=== PATIENT | female | born 1950 | race Caucasian/White ===

== ENCOUNTER → 2020-01-25 10:43 | Outpatient (BNVA) | payer MEDICARE, SELFPAY | PROVIDERS: Visit Provider Orthopaedic Surgery | DX: M17.11 Unilateral primary osteoarthritis, right knee (principal) | CPT/HCPCS: 20610; 99212; J1040 ==

== ENCOUNTER 2020-02-21 11:04 | Outpatient (REF) | payer MEDICARE, SELFPAY ==
--- NOTE | 2020-02-21 | US_ITS ---
EXAMINATION: US RETROPERITONEAL LIMITED (RENAL ONLY) CLINICAL INFORMATION: Renal stones. COMPARISON: Renal ultrasound 09/11/2019. CT abdomen and pelvis 08/17/2019. TECHNIQUE: Real-time imaging of the kidneys. FINDINGS: RIGHT KIDNEY: 10.0 x 4.7 x 6.0 cm (SAG x AP x TRV). The kidney is normal in size, contour, and echogenicity. Renal cortical thickness is normal. No calculi or focal parenchymal lesions. No hydronephrosis. LEFT KIDNEY: 11.1 x 5.1 x 4.0 cm (SAG x AP x TRV). The kidney is normal in size, contour, and echogenicity. Renal cortical thickness is normal. No focal parenchymal lesions or hydronephrosis. There are at least 3 echogenic stones in midpole without caliectasis. They measure 0.4 x 0.4 x 0 0.4 cm, 0.3 x 0.3 x 0.2 cm and 0.2 x 0.2 x 0.4 cm. US/US renal BI IMPRESSION: Multiple nonobstructive echogenic stones midpole left kidney. On previous ultrasound 4 small 2 mm stones were visualized on 09/11/2019 exam.
== END 2020-02-21 11:05 | disposition home or self-care (01) ==
LOC: HO.HMGCX 11:04
PROVIDERS: PCP Internal Medicine; Visit Provider Urology
DX: N20.0 Calculus of kidney (principal)
CPT/HCPCS: 76775

== ENCOUNTER → 2020-02-29 14:51 | Outpatient (BNVA) | payer MEDICARE, SELFPAY | PROVIDERS: PCP Internal Medicine; Visit Provider Urology | DX: Z13.89 Encounter for screening for other disorder (principal) | CPT/HCPCS: Q3014 ==

== ENCOUNTER 2020-03-29 14:23 | Outpatient (REF) | payer MEDICARE, SELFPAY ==
--- NOTE | ~2020-03-29 | MM_ITS ---
EXAMINATION: MM SCREENING DIGITAL BREAST TOMOSYNTHESIS, BILATERAL CLINICAL INFORMATION: Screening. Asymptomatic. The lifetime risk of breast cancer based on the Tyrer-Cuzick Model is 4%. COMPARISON: Mammography: 02/26/2019, 03/02/2018, 01/04/2017 TECHNIQUE: Digital breast tomosynthesis is performed in both the craniocaudal and mediolateral oblique views along with computer-aided detection (CAD). Synthesized 2D images are generated from the tomosynthesis. FINDINGS: The breasts are almost entirely fatty (ACR BI-RADS breast composition Category a). There are no significant masses, abnormal calcifications, or other abnormalities. There is a dermal lesion again seen posterior 6:30 o'clock left breast. Background stromal densities are similar to prior exams. MM/MM tomosynthesis screening BI IMPRESSION: No mammographic evidence of malignancy. ASSESSMENT: BI-RADS 2: Benign RECOMMENDATION: Routine annual mammography screening. This patient's information was entered into a reminder system with a target due date for their next mammogram.
== END 2020-03-29 14:24 | disposition home or self-care (01) ==
LOC: HO.MAMMO 14:23
PROVIDERS: Visit Provider Internal Medicine
DX: Z12.31 Encounter for screening mammogram for malignant neoplasm of breast (principal)
CPT/HCPCS: 77063; 77067

== ENCOUNTER → 2020-08-13 13:17 | Outpatient (BNVA) | payer MEDICARE, SELFPAY | PROVIDERS: PCP Internal Medicine; Visit Provider Orthopaedic Surgery | DX: M17.11 Unilateral primary osteoarthritis, right knee (principal) | CPT/HCPCS: 20610; 99212; J1040 ==

== ENCOUNTER 2020-09-02 15:55 | Outpatient (REF) | payer MEDICARE, SELFPAY ==
--- NOTE | ~2020-09-02 | US_ITS ---
EXAMINATION: US RETROPERITONEAL LIMITED (RENAL ONLY) CLINICAL INFORMATION: Calculus of kidney. COMPARISON: Ultrasound renal 02/21/2020 TECHNIQUE: Real-time imaging of the kidneys. FINDINGS: RIGHT KIDNEY: 9.6 x 4.6 x 4.8 cm (SAG x AP x TRV). The kidney is normal in size, contour, and echogenicity. Renal cortical thickness is normal. No calculi or focal parenchymal lesions. No hydronephrosis. LEFT KIDNEY: 11.0 x 4.7 x 4.1 cm (SAG x AP x TRV). The kidney is normal in size, contour, and echogenicity. Renal cortical thickness is normal. There is a small left mid and lower pole renal stones, largest measuring 3 mm. No focal parenchymal lesions or hydronephrosis. US/US renal BI IMPRESSION: Small left renal stones.
== END 2020-09-02 15:56 | disposition home or self-care (01) ==
LOC: HO.US 15:55
PROVIDERS: PCP Internal Medicine; Visit Provider Urology
DX: N20.0 Calculus of kidney (principal)
CPT/HCPCS: 76775

== ENCOUNTER → 2020-11-14 14:53 | Outpatient (BNVA) | payer MEDICARE, SELFPAY | PROVIDERS: PCP Internal Medicine | DX: N20.0 Calculus of kidney (principal) | CPT/HCPCS: 99212 ==

== ENCOUNTER 2021-03-31 10:20 | Outpatient (REF) | payer MEDICARE, SELFPAY ==
--- NOTE | ~2021-03-31 | MM_ITS ---
EXAMINATION: MM SCREENING DIGITAL BREAST TOMOSYNTHESIS, BILATERAL CLINICAL INFORMATION: Screening. Asymptomatic. The lifetime risk of breast cancer based on the Tyrer-Cuzick Model is 3%. COMPARISON: Mammography: 03/29/2020, 02/26/2019, 02/20/2018 TECHNIQUE: Digital breast tomosynthesis is performed in both the craniocaudal and mediolateral oblique views along with computer-aided detection (CAD). Synthesized 2D images are generated from the tomosynthesis. FINDINGS: There are scattered areas of fibroglandular density (ACR BI-RADS breast composition Category b). Breast tissue composition borders on predominantly fatty. Background fibroglandular and stromal densities are stable. There is no interval mass or architectural abnormality or abnormal calcifications. Again, there is a dermal lesion overlying the posterior 7:00 left breast and a dermal lesion overlying the upper anterior left axilla. Low right axillary tail node is stable. There are no significant changes. MM/MM tomosynthesis screening BI IMPRESSION: No mammographic evidence of malignancy. ASSESSMENT: BI-RADS 2: Benign RECOMMENDATION: Routine annual mammography screening. This patient's information was entered into a reminder system with a target due date for their next mammogram.
== END 2021-03-31 10:21 | disposition home or self-care (01) ==
LOC: HO.MAMMO 10:20
PROVIDERS: PCP Physician Assistant Medical; Visit Provider Internal Medicine
DX: Z12.31 Encounter for screening mammogram for malignant neoplasm of breast (principal)
CPT/HCPCS: 77063; 77067

== ENCOUNTER 2021-05-14 08:01 | Outpatient (REF) | payer MEDICARE, SELFPAY ==
--- NOTE | ~2021-05-14 | XR_ITS ---
EXAMINATION: XR KNEE, RIGHT XR KNEE STANDING, BILATERAL CLINICAL INFORMATION: Pain in knee. COMPARISON: None TECHNIQUE: AP upright views of both knees. Patella and lateral view of the right knee. FINDINGS: RIGHT KNEE: There is narrowing of the medial compartment with marginal osteophytes and subchondral cysts indicative of plag-sk-gpqxeogu osteoarthritis. Lateral compartment: Small marginal osteophytes indicative of mild osteoarthritis. Mild marginal osteophytes about the patellofemoral compartment without joint space narrowing indicative of mild osteoarthritis. Surrounding soft tissues: Normal. LIMITED AP UPRIGHT LEFT KNEE: Marginal osteophytes with minimal joint space narrowing of the medial compartment indicative of mild osteoarthritis. Lateral compartment: Unremarkable. Surrounding bone and soft tissues: Unremarkable. XR/XR knee standing BI IMPRESSION: RIGHT KNEE: Osteoarthritis, unchanged. LEFT KNEE LIMITED: Osteoarthritis.
--- NOTE | ~2021-05-14 | XR_ITS ---
EXAMINATION: XR KNEE, RIGHT XR KNEE STANDING, BILATERAL CLINICAL INFORMATION: Pain in knee. COMPARISON: None TECHNIQUE: AP upright views of both knees. Patella and lateral view of the right knee. FINDINGS: RIGHT KNEE: There is narrowing of the medial compartment with marginal osteophytes and subchondral cysts indicative of agwr-bo-ipvhnaba osteoarthritis. Lateral compartment: Small marginal osteophytes indicative of mild osteoarthritis. Mild marginal osteophytes about the patellofemoral compartment without joint space narrowing indicative of mild osteoarthritis. Surrounding soft tissues: Normal. LIMITED AP UPRIGHT LEFT KNEE: Marginal osteophytes with minimal joint space narrowing of the medial compartment indicative of mild osteoarthritis. Lateral compartment: Unremarkable. Surrounding bone and soft tissues: Unremarkable. XR/XR knee RT 2V IMPRESSION: RIGHT KNEE: Osteoarthritis, unchanged. LEFT KNEE LIMITED: Osteoarthritis.
== END 2021-05-14 08:02 | disposition home or self-care (01) ==
LOC: HO.HOSX 08:01
PROVIDERS: Visit Provider Physician Assistant
DX: M17.11 Unilateral primary osteoarthritis, right knee (principal)
CPT/HCPCS: 20610; 73560; 73565; 99212; J1040

== ENCOUNTER 2021-10-09 08:42 | Outpatient (REF) | payer MEDICARE, SELFPAY ==
--- NOTE | ~2021-10-09 | US_ITS ---
EXAMINATION: US RETROPERITONEAL LIMITED (RENAL ONLY) CLINICAL INFORMATION: Calculus of kidney. COMPARISON: Renal ultrasound 09/02/2020 and 02/21/2020. CT abdomen and pelvis 08/17/2019. TECHNIQUE: Real-time imaging of the kidneys. FINDINGS: RIGHT KIDNEY: 10.6 x 3.9 x 6.1 cm (SAG x AP x TRV). The kidney is normal in size, contour, and echogenicity. Renal cortical thickness is normal. No calculi or focal parenchymal lesions. No hydronephrosis. LEFT KIDNEY: 11.2 x 4.6 x 5.4 cm (SAG x AP x TRV). The kidney is normal in size, contour, and echogenicity. Renal cortical thickness is normal. There are 3 small stones in the mid and lower pole measuring 3 mm. No focal parenchymal lesions or hydronephrosis. US/US renal BI IMPRESSION: Small left renal stones.
== END 2021-10-09 08:43 | disposition home or self-care (01) ==
LOC: HO.HMGCX 08:42
DX: N20.0 Calculus of kidney (principal)
CPT/HCPCS: 76775

== ENCOUNTER → 2021-10-12 13:38 | Outpatient (BNVA) | payer MEDICARE, SELFPAY | PROVIDERS: PCP Internal Medicine; Visit Provider Physician Assistant | DX: M17.11 Unilateral primary osteoarthritis, right knee (principal) | CPT/HCPCS: 20610; 99212; J1040 ==

== ENCOUNTER → 2021-11-18 14:45 | Outpatient (BNVA) | payer MEDICARE, SELFPAY | PROVIDERS: PCP Internal Medicine; Visit Provider Urology | DX: N20.0 Calculus of kidney (principal) | CPT/HCPCS: 99212 ==

== ENCOUNTER → 2022-01-25 11:14 | Outpatient (BNVA) | payer MEDICARE, SELFPAY | PROVIDERS: PCP Internal Medicine; Visit Provider Urology | DX: N20.0 Calculus of kidney (principal); R82.992 Hyperoxaluria | CPT/HCPCS: Q3014 ==

== ENCOUNTER 2022-04-06 10:21 | Outpatient (REF) | payer MEDICARE, SELFPAY ==
--- NOTE | ~2022-04-06 | MM_ITS ---
EXAMINATION: MM SCREENING DIGITAL BREAST TOMOSYNTHESIS, BILATERAL CLINICAL INFORMATION: Screening. Asymptomatic. The lifetime risk of breast cancer based on the Tyrer-Cuzick Model is 3.3%. COMPARISON: Mammography: March 31, 2021 and studies dating back to December 20, 2015 TECHNIQUE: Digital breast tomosynthesis is performed in both the craniocaudal and mediolateral oblique views along with computer-aided detection (CAD). Synthesized 2D images are generated from the tomosynthesis. FINDINGS: The breasts are almost entirely fatty (ACR BI-RADS breast composition Category a). There are no significant masses, abnormal calcifications, or other abnormalities. MM/MM tomosynthesis screening BI IMPRESSION: No significant changes ASSESSMENT: BI-RADS 1: Negative RECOMMENDATION: Routine annual mammography screening. This patient's information was entered into a reminder system with a target due date for their next mammogram.
== END 2022-04-06 10:22 | disposition home or self-care (01) ==
LOC: HO.MAMMO 10:21
PROVIDERS: PCP Internal Medicine; Visit Provider Internal Medicine
DX: Z12.31 Encounter for screening mammogram for malignant neoplasm of breast (principal)
CPT/HCPCS: 77063; 77067

== ENCOUNTER 2022-05-13 14:35 | Outpatient (REF) | payer MEDICARE, SELFPAY ==
--- NOTE | ~2022-05-13 | XR_ITS ---
EXAMINATION: XR KNEES, STANDING AP BILATERAL XR KNEE, RIGHT CLINICAL INFORMATION: Knee pain COMPARISON: Standing AP knees and right knee 05/14/2021. TECHNIQUE: Bilateral standing AP view of the knees is performed. The right knee is also imaged in lateral and axial patella views. FINDINGS: Right: There is osteoarthritis greatest medial knee joint compartment with marked medial joint narrowing, small subchondral cysts medial femoral condyle, and marginal osteophytes. There is secondary rightward genu varus similar to prior exam. No erosive change or visible chondrocalcinosis. The axial view patella shows no lateralization or definite tilting. There is small suprapatellar effusion with mild thickening of the bursa. The Hoffa's fat. Is unremarkable. Left: There is narrowing medial knee joint compartment of lesser severity than that on the right with borderline secondary genu varus. No erosive change or visible chondrocalcinosis. XR/XR knee standing BI IMPRESSION: Right: Osteoarthritis greatest medial knee joint compartment with secondary rightward genu varus. Small suprapatellar effusion with mild thickening bursa. Findings similar to prior imaging 2021. Left: Narrowing medial knee joint compartment of lesser severity with borderline secondary genu varus. Findings similar to prior imaging 2021.
--- NOTE | ~2022-05-13 | XR_ITS ---
EXAMINATION: XR KNEES, STANDING AP BILATERAL XR KNEE, RIGHT CLINICAL INFORMATION: Knee pain COMPARISON: Standing AP knees and right knee 05/14/2021. TECHNIQUE: Bilateral standing AP view of the knees is performed. The right knee is also imaged in lateral and axial patella views. FINDINGS: Right: There is osteoarthritis greatest medial knee joint compartment with marked medial joint narrowing, small subchondral cysts medial femoral condyle, and marginal osteophytes. There is secondary rightward genu varus similar to prior exam. No erosive change or visible chondrocalcinosis. The axial view patella shows no lateralization or definite tilting. There is small suprapatellar effusion with mild thickening of the bursa. The Hoffa's fat. Is unremarkable. Left: There is narrowing medial knee joint compartment of lesser severity than that on the right with borderline secondary genu varus. No erosive change or visible chondrocalcinosis. XR/XR knee RT 2V IMPRESSION: Right: Osteoarthritis greatest medial knee joint compartment with secondary rightward genu varus. Small suprapatellar effusion with mild thickening bursa. Findings similar to prior imaging 2021. Left: Narrowing medial knee joint compartment of lesser severity with borderline secondary genu varus. Findings similar to prior imaging 2021.
== END 2022-05-13 14:36 | disposition home or self-care (01) ==
LOC: HO.HOSX 14:35
PROVIDERS: Visit Provider Physician Assistant
DX: M17.11 Unilateral primary osteoarthritis, right knee (principal)
CPT/HCPCS: 20610; 73560; 73565; 99212; J1040

== ENCOUNTER → 2022-07-26 13:21 | Outpatient (BNVA) | payer MEDICARE, SELFPAY | PROVIDERS: PCP Internal Medicine; Visit Provider Urology | DX: N20.0 Calculus of kidney (principal); R82.992 Hyperoxaluria | CPT/HCPCS: 99212 ==

== ENCOUNTER 2022-09-28 08:44 | Outpatient (REF) | payer MEDICARE, SELFPAY ==
--- NOTE | ~2022-09-28 | XR_ITS ---
EXAMINATION: XR SHOULDER, LEFT CLINICAL INFORMATION: Pain COMPARISON: None available. TECHNIQUE: Three views of the left shoulder. FINDINGS: Visualized portion of proximal left humerus demonstrate no fracture. Humeral head demonstrates good articulation the glenoid fossa. The left acromioclavicular joint is normal in appearance. Visualized left-sided ribs and lung parenchyma are unremarkable. XR/XR shoulder LT min 2V IMPRESSION: Unremarkable radiographs of the left shoulder.
== END 2022-09-28 08:45 | disposition home or self-care (01) ==
LOC: HO.HOSX 08:44
PROVIDERS: Visit Provider Physician Assistant
DX: M75.102 Unspecified rotator cuff tear or rupture of left shoulder, not specified as traumatic (principal)
CPT/HCPCS: 20610; 73030; 99212; J1040

== ENCOUNTER 2022-09-28 14:01 | Outpatient (AMB) | payer MEDICARE, SELFPAY ==
--- NOTE | 2022-09-28 14:13 | MHC.OFFVIS ---
Intake Vital Signs 09/28/22 14:18 Height 5 ft 7 in Weight 220 lb BMI 34.5 Intake Visit Reasons: Newprob-Left shoulder pain Intake Note: Kendal is a 71 year old female who presents today for a evaluation for her left shoulder pain. Patient reports off and on for a least 2-3 months. She states that her pain is more on the anterior aspect of the shoulder. Pain is worse when sleeping on her left side. Allergies No Known Allergies Allergy (Verified 09/28/22 14:17) HPI Newprob-Left shoulder pain HPI Details 72-year-old female who presents in the office today for an evaluation of left shoulder pain. The patient reports intermittent pain for the last 2-3 months, since 06/2022. She claims her pain is located more on the anterior aspect of the shoulder. She states her pain increases when she sleeps on her left side. [facility] Medical History Primary osteoarthritis of right knee Renal stone Surgical History History of hysterectomy Social History Current occupational status: employed Current occupation: [employer] Review of Systems Const All systems reviewed & are unremarkable except as noted in HPI and below Physical Exam Vital Signs: BMI result Body Mass Index 34.5 Const General: cooperative, healthy appearing and no acute distress Resp Effort & Inspection: normal respiratory effort and able to speak in complete sentences Cardio Rate: regular rate Peripheral pulses: Peripheral pulses 2+ throughout GI Palpation (GI): Soft to palpation Skin Lesions: no lesions Rashes: no rashes Extrem Other: Left shoulder: Normal to inspection. No ecchymosis, erythema, or edema. Full shoulder ROM in all planes. Negative cross-body reach. Negative empty can. Negative drop arm. NVI. Office Procedures Joint Injection/Drain Joint Injection/Drain Primary Site: right shoulder Prep: site was prepped using aseptic technique, ethochloride spray was applied and injection warnings given Injected: 80 mg of, DepoMedrol, with 8 mL of (2% plain lido ) and in the joint Approach Used: anterolateral Procedure: The patient tolerated the procedure well, but had some pain with the injection and there was some relief with the local anesthesia Coding - Large joint Procedure code (CPT) selection complete Results Reviewed Results Reviewed: 09/28/22 14:25 Lidocaine HCl 2 % MPF [Xylocaine 2 % MPF] 5 ml .ROUTE .STK-MED ONE methylPREDNISolone acetate [DEPO-MedroL] 80 mg .ROUTE .STK-MED ONE Assessment & Plan Assessment & Plan (1) Painful arc syndrome of left shoulder: Code(s): M75.102 - Unspecified rotator cuff tear or rupture of left shoulder, not specified as traumatic Plan Ms. Garcia is a 72-year-old female who presents in the office today for an evaluation of left shoulder pain. The patient reports intermittent pain for the last 2-3 months, since 06/2022. She claims her pain is located more on the anterior aspect of the shoulder. She states her pain increases when she sleeps on her left side. The patient was offered a cortisone injection in the left shoulder with 80 mg of DepoMedrol. The patient was explained the risk, benefits, and alternatives to receiving this injection. After receiving consent for the injection, the patient had the procedure done while in office today. The patient tolerated the procedure well with no complications. Follow up will be PRN, or sooner if needed. X-rays of the left shoulder which were obtained while in the office today and were reviewed by me, Ambreen Benz PA-C, revealed no evidence of acute fracture or dislocation. Orders: Orders XR shoulder LT min 2V Today M25.519 - Pain in unspecified shoulder Patient Instructions: Scribed for Ambreen Benz PA-C by Regi Sequeira lpn or medical assistant, on 09/28/2022 at 2:04 pm, EST. Coding Level of Care Code Est Pt Level 3 (60672) Diagnoses Painful arc syndrome of left shoulder M75.102 CPT Codes Coding - Large joint: 62384 - Large joint ([id number])
[2022-09-28 14:18] VITALS: BMI 34.5
== END 2022-09-28 14:45 | disposition home or self-care (01) ==
PROVIDERS: PCP Internal Medicine; Visit Provider Physician Assistant
DX: M75.102 Unspecified rotator cuff tear or rupture of left shoulder, not specified as traumatic (principal)
CPT/HCPCS: 20610; 99213

== ENCOUNTER 2022-10-27 15:32 | Outpatient (AMB) | payer MEDICARE, SELFPAY ==
--- NOTE | 2022-10-27 15:33 | A.OFFVIS_ITS ---
Intake Intake Visit Reasons: 6m follow up/Litholink Intake Note: Patient presents today for a follow-up on Litholink Results: Meds- None Allergies to Antibiotic- No Known Allergies Blood Thinner- None Mask Designer Required: No Accompanied by: Self / Same As Patient Allergies No Known Allergies Allergy (Verified 10/27/22 15:33) HPI HPI Comments History of Present Illness Details Kendal is a 72-year-old female who presents today to the office for a follow-up. 10/27/2022? She is followed today for repeat litholink results. She was last seen by me on 07/26/2022 for litholink results. The patient was advised to continue Vitamin B 6 100mg daily, and consume adequate water intake and low sodium diet during that time. Repeat 24-hour urine collection test was ordered. She states she has been taking OTC vitamin B6 100 mg daily. I reviewed the 24-hour urine culture results from 07/26/2022 revealed Total urine volume 1.83L, urine Calcium 212 mg slightly up from the prior collection, urine Oxalate was significantly improved to 33 mg down from 59, urine Sodium 292 mg and urine Citrate 739. Review of charts: Last visit: 07/26/2022? Telehealth fu--I have reviewed 24 hr urine collection, urine vol - 1.87 L, urine oxalate 59- elev, urine Na >200- elev., urine Ca <200 wnL? 15 minutes in face to face discussion greater than 50% in discussion regarding diagnosis and treatment options. Evaluation today-- blood:10 Alen/uL,? leukocytes:? 500 Celina/uL. I reviewed the 24 hr urine abnormalities including hyperoxaluria 10/27/2022: Plan: Monitor kidney stones. CAT scan of the abdomen/pelvis stone protocol. Continue OTC vitamin B6 100 mg daily. Encouraged the patient to reduce sodium in diet. Follow-up Tele-health in 04/2022 to discuss the CAT results. [facility] Medical History Primary osteoarthritis of right knee Renal stone Surgical History History of hysterectomy Social History Current occupational status: employed Current occupation: [employer] Review of Systems Const All systems reviewed & are unremarkable except as noted in HPI and below Reports no additional complaints Eyes Reports no additional complaints ENT Reports no additional complaints Card Denies dyspnea Resp Denies cough and Denies dyspnea GI Reports no additional complaints Reports no additional complaints Musc Reports no additional complaints Skin/Breast Denies rash and Denies unusual bruising Neuro Reports no additional complaints Psych Reports no additional complaints Endo Reports no additional complaints Charles/Lymph Reports no additional complaints Aller/Immun Reports no additional complaints Assessment & Plan Assessment & Plan (1) Kidney stone on left side: Code(s): N20.0 - Calculus of kidney (2) Hyperoxaluria: Code(s): R82.992 - Hyperoxaluria Plan Monitor kidney stones. CAT scan of the abdomen/pelvis stone protocol. Continue OTC vitamin B6 100 mg daily. Encouraged the patient to reduce sodium in diet. Follow-up Tele-health in 04/2022 to discuss the CAT results. Patient Instructions: The patient had an opportunity to ask questions regarding treatment plan. All questions were answered. Imaging, Laboratory studies and physical exam results were discussed and reviewed in detail. No major barriers to understanding were identified. The patient expressed understanding and agreement with the above treatment plan.? ? ? The patient is aware they should contact our office by phone for worsening of their current condition or the appearance of new symptoms. Compliance is encouraged with any medications and followup testing that is ordered.? ? ? It is a privilege to be allowed the opportunity to participate in the urologic care of your patient. If you have any questions or concerns regarding treatment for the above conditions please do not hesitate to contact me. The office telephone contact is [phone].? ? ? This note is constructed in part using voice recognition software. While every effort has been made to ensure accuracy psych social worker errors may have been included.? ? ? Yours sincerely,? ? ? Sabiha Swartz MD? Coding Level of Care Code Est Pt Level 3 (56182) Diagnoses Kidney stone on left side N20.0 Hyperoxaluria R82.997
== END 2022-10-27 15:57 | disposition home or self-care (01) ==
PROVIDERS: PCP Internal Medicine; Visit Provider Urology
DX: N20.0 Calculus of kidney (principal); R82.992 Hyperoxaluria
CPT/HCPCS: 99213

== ENCOUNTER → 2022-10-27 15:32 | Outpatient (BNVA) | payer MEDICARE, SELFPAY | PROVIDERS: PCP Internal Medicine; Visit Provider Urology | DX: N20.0 Calculus of kidney (principal); R82.992 Hyperoxaluria | CPT/HCPCS: 99212 ==

== ENCOUNTER 2022-12-07 13:14 | Outpatient (AMB) | payer MEDICARE, SELFPAY ==
[2022-12-07 13:47] VITALS: BMI 34.5
--- NOTE | 2022-12-07 13:47 | A.OFFVIS_ITS ---
Intake Vital Signs 12/07/22 13:47 Height 5 ft 7 in Weight 220 lb BMI 34.5 Intake Visit Reasons: ov- right knee pain Intake Note: Kendal is a 72 year old female who presents today for a follow up of her right knee pain, last injection 05/13/22. Patient reports her last injection gave her relief and she would like to repeat. Allergies No Known Allergies Allergy (Verified 12/07/22 13:50) HPI ov- right knee pain HPI Details 72-year-old female who presents in the [facility] today for an evaluation of right knee pain. The patient had a cortisone injection in the right knee on 05/13/2022. She claims the last injection gave her relief, and she would like a repeat injection in the office today. [facility] Medical History Primary osteoarthritis of right knee Renal stone Surgical History History of hysterectomy Social History Current occupational status: employed Current occupation: [employer] Review of Systems Const All systems reviewed & are unremarkable except as noted in HPI and below Physical Exam Vital Signs: BMI result Body Mass Index 34.5 Const General: cooperative, healthy appearing and no acute distress Resp Effort & Inspection: normal respiratory effort and able to speak in complete sentences Cardio Rate: regular rate Peripheral pulses: Peripheral pulses 2+ throughout GI Palpation (GI): Soft to palpation Skin Lesions: no lesions Rashes: no rashes Extrem Other: Right knee: normal to inspection. No ecchymosis, redness or joint effusion. Patient is able to demonstrate full knee flexion and extension. Crepitus felt with ROM. No tenderness to the medial or lateral joint lines. NVI. Office Procedures Joint Injection/Drain Joint Injection/Drain Primary Site: right knee Prep: site was prepped using aseptic technique, ethochloride spray was applied and injection warnings given Injected: 80 mg of, DepoMedrol, with 8 mL of (2% plain lido ) and in the joint Approach Used: anterolateral Procedure: The patient tolerated the procedure well, but had some pain with the injection and there was some relief with the local anesthesia Coding 82552 - Large joint Procedure code (CPT) selection complete Results Reviewed Results Reviewed: 12/07/22 13:40 Lidocaine HCl 2 % MPF [Xylocaine 2 % MPF] 5 ml .ROUTE .STK-MED ONE methylPREDNISolone acetate [DEPO-MedroL] 80 mg .ROUTE .STK-MED ONE Assessment & Plan Assessment & Plan (1) Primary osteoarthritis of right knee: Code(s): M17.11 - Unilateral primary osteoarthritis, right knee Plan Ms. Garcia is a 72-year-old female who presents in the office today for an evaluation of right knee pain. The patient had a cortisone injection in the right knee on 05/13/2022. She claims the last injection gave her relief, and she would like a repeat injection in the office today. The patient was offered a cortisone injection in the right knee with 80 mg of DepoMedrol. The patient was explained the risk, benefits, and alternatives to receiving this injection. After receiving consent for the injection, the patient had the procedure done while in office today. The patient tolerated the procedure well with no complications. Follow up will be PRN, or sooner if needed. X-rays of the right knee obtained while in the office today and reviewed by me, Ambreen Benz PA-C, revealed right knee osteoarthritis. Orders: Orders XR knee LT 2V Today M25.569 - Pain in unspecified knee Patient Instructions: Scribed for Ambreen Benz PA-C by Regi Sequeira registered medical transcriptionist, on 12/07/2022 at 1:21 pm, EST. Coding Level of Care Code Est Pt Level 3 (76710) Diagnoses Primary osteoarthritis of right knee M17.11 CPT Codes Coding - 91161 Large joint: 95472 - Large joint ([id number])
== END 2022-12-07 13:59 | disposition home or self-care (01) ==
PROVIDERS: PCP Internal Medicine; Visit Provider Physician Assistant
DX: M17.11 Unilateral primary osteoarthritis, right knee (principal)
CPT/HCPCS: 20610; 99213

== ENCOUNTER 2022-12-07 17:26 | Outpatient (REF) | payer MEDICARE, SELFPAY | END 2022-12-07 17:27 | disposition home or self-care (01) | LOC: HO.HOSX 17:26 | PROVIDERS: Visit Provider Physician Assistant | DX: M17.11 Unilateral primary osteoarthritis, right knee (principal) | CPT/HCPCS: 20610; 99212; J1040 ==

== ENCOUNTER 2023-04-12 10:23 | Outpatient (REF) | payer MEDICARE, SELFPAY | END 2023-04-12 10:24 | disposition home or self-care (01) | LOC: HO.MAMMO 10:23 | PROVIDERS: PCP Internal Medicine; Visit Provider Internal Medicine | DX: Z12.31 Encounter for screening mammogram for malignant neoplasm of breast (principal) | CPT/HCPCS: 77063; 77067 ==

== ENCOUNTER → 2023-04-12 10:45 | Outpatient (BNV) | payer MEDICARE, SELFPAY | PROVIDERS: PCP Internal Medicine; Visit Provider Radiology Diagnostic Radiology | DX: Z12.31 Encounter for screening mammogram for malignant neoplasm of breast (principal) | CPT/HCPCS: 77063; 77067 ==

== ENCOUNTER 2023-05-12 15:11 | Outpatient (AMB) | payer MEDICARE, SELFPAY ==
--- NOTE | 2023-05-12 15:43 | A.OFFVIS_ITS ---
Intake Vital Signs 05/12/23 15:45 Height 5 ft 7 in Weight 220 lb BMI 34.5 Intake Visit Reasons: ov- right knee OA, last injection 12/07/22 Intake Note: Kendal is a 72 year old female who presents today for a injection for her right knee, last injection 12/07/22. Patient reports her last injection gave her 4-5 months of relief. Allergies No Known Allergies Allergy (Verified 05/12/23 15:45) HPI ov- right knee OA, last injection 12/07/22 HPI Details 72-year-old female who presents in the [facility] today for a follow up of right knee osteoarthritis. I last saw the patient in the office on 12/07/2022. At that time she was given a right knee cortisone injection. She states she had 4-5 months of relief. [facility] Medical History Primary osteoarthritis of right knee Renal stone Surgical History History of hysterectomy Social History Current occupational status: employed Current occupation: [employer] Review of Systems Const All systems reviewed & are unremarkable except as noted in HPI and below Physical Exam Vital Signs: BMI result Body Mass Index 34.5 Const General: cooperative, healthy appearing and no acute distress Resp Effort & Inspection: normal respiratory effort and able to speak in complete sentences Cardio Rate: regular rate Peripheral pulses: Peripheral pulses 2+ throughout GI Palpation (GI): Soft to palpation Skin Lesions: no lesions Rashes: no rashes Extrem Other: Right knee: normal to inspection. No ecchymosis, redness or joint effusion. Patient is able to demonstrate full knee flexion and extension. Crepitus felt with ROM. No tenderness to the medial or lateral joint lines. NVI. Office Procedures Joint Injection/Drain Joint Injection/Drain Primary Site: right knee Prep: site was prepped using aseptic technique, ethochloride spray was applied and injection warnings given Injected: with 3 mL of (2% plain lido ), 0.25% bupivacaine (3mL), in the joint and decadron Approach Used: anterolateral Procedure: The patient tolerated the procedure well, but had some pain with the injection and there was some relief with the local anesthesia Coding 33246 - Large joint Procedure code (CPT) selection complete Assessment & Plan Assessment & Plan (1) Primary osteoarthritis of right knee: Code(s): M17.11 - Unilateral primary osteoarthritis, right knee Plan Ms. Garcia is a 72-year-old female who presents in the office today for a follow up of right knee osteoarthritis. I last saw the patient in the office on 12/07/2022. At that time she was given a right knee cortisone injection. She states she had 4-5 months of relief. The patient was offered a cortisone injection in the right knee. The patient was explained the risk, benefits, and alternatives to receiving this injection. After receiving consent for the injection, the patient had the procedure done while in office today. The patient tolerated the procedure well with no complications. Follow up will be PRN, or sooner if needed. Patient Instructions: Scribed by Regi Sequeira medical billing associate, for Ambreen Benz PA-C on 05/03/2023 at 3:58 pm, EST. Coding Level of Care Code Est Pt Level 3 (64905) Diagnoses Primary osteoarthritis of right knee M17.11 CPT Codes Coding - Large joint: 19754 - Large joint ([id number])
[2023-05-12 15:45] VITALS: BMI 34.5
== END 2023-05-12 16:24 | disposition home or self-care (01) ==
LOC: HO.HOS 15:11
PROVIDERS: PCP Internal Medicine; Visit Provider Physician Assistant
DX: M17.11 Unilateral primary osteoarthritis, right knee (principal)
CPT/HCPCS: 20610; 99213

== ENCOUNTER → 2023-05-12 15:11 | Outpatient (BNVA) | payer MEDICARE, SELFPAY | PROVIDERS: PCP Internal Medicine; Visit Provider Physician Assistant | DX: M17.11 Unilateral primary osteoarthritis, right knee (principal) | CPT/HCPCS: 20610; 99212; J0665; J1100 ==

== ENCOUNTER 2023-05-25 15:04 | Outpatient (REF) | payer MEDICARE, SELFPAY ==
[2023-05-25 17:24] LABS: Blood Urea Nitrogen 19 mg/dL (9-16); Estimated Glomerular Filt Rate > 60
== END 2023-05-25 15:05 | disposition home or self-care (01) ==
LOC: HO.LAB 15:04
PROVIDERS: PCP Internal Medicine; Visit Provider Urology
DX: N20.0 Calculus of kidney (principal)
CPT/HCPCS: 36415; 82565; 84520

== ENCOUNTER 2023-06-22 14:59 | Outpatient (REF) | payer MEDICARE, SELFPAY ==
--- NOTE | ~2023-06-22 | CT_ITS ---
EXAMINATION: CT ABDOMEN AND PELVIS WITHOUT AND WITH CONTRAST CLINICAL INFORMATION: Renal calculus. COMPARISON: Renal ultrasound 10/09/2021. CT abdomen and pelvis 08/17/2019. TECHNIQUE: Noncontrast CT of the abdomen and pelvis is performed followed by split bolus contrast-enhanced images using 85 mL Omnipaque 350 contrast.? Postcontrast imaging is performed during the combined nephrogram and excretion phase. Sagittal and coronal reformatted images were obtained on the technologist's workstation for both the precontrast and postcontrast phases. This CT examination was performed using dose optimization techniques as appropriate, variously including the following: *Automated exposure control *Adjustment of mA and/or kV according to patient size (this includes techniques or standardized protocols for targeted exams where dose is matched to indication/reason for exam; i.e. extremities or head) *Use of iterative reconstruction technique DLP: 1179 mGy-cm FINDINGS: LUNG BASES: Mild airway wall thickening and bronchiectasis. LIVER, GALLBLADDER, AND BILIARY TREE: The liver is normal in attenuation. Simple cyst in the left hepatic lobe for which no imaging follow-up is recommended. No biliary ductal dilatation. Multiple faceted gallstones on the order of 1-1.5 cm in size. No evidence of acute cholecystitis. PANCREAS: No discrete pancreatic mass. No pancreatic ductal dilatation. SPLEEN: Normal size spleen. ADRENAL GLANDS: No adrenal mass. KIDNEYS AND URETERS: 5 nonobstructing calculi in the left kidney ranging in size from punctate to 3 mm and 12-15 cm from the posterolateral skin surface. 5 nonobstructing calculi in the right kidney ranging in size from punctate to 3 mm and 13-16 cm from the posterolateral skin surface. The calculi are too small to accurately measure attenuation. The nephrograms are symmetric. A few tiny cortical hypodensities are seen bilaterally and too small to characterize but most likely cysts. No imaging follow-up is recommended. Contrast excretion is symmetric. No filling defects in the renal collecting systems. No hydroureteronephrosis. BLADDER: No discrete bladder mass. Trabeculated urinary bladder. GASTROINTESTINAL TRACT: Small hiatal hernia. Small and large bowel are normal in caliber. The appendix appears normal. A few scattered colonic diverticula without evidence of acute diverticulitis. ABDOMINAL WALL: Small fat-containing umbilical hernia. LYMPH NODES: No lymphadenopathy. VASCULAR: Mild aortoiliac atherosclerosis. No aortic aneurysm. PELVIC VISCERA: Hysterectomy. No pelvic mass. OSSEUS STRUCTURES: Degenerative facet disease in the lower lumbar spine. CT/CT urogram IMPRESSION: Multiple nonobstructing calculi bilateral kidneys without hydroureteronephrosis. No suspicious renal mass. Trabeculated urinary bladder wall. Cholelithiasis. Mild bronchiectasis and airway wall thickening visible at the lung bases.
[2023-06-22] MEDS: iohexoL 350 MG/ML 100 ML INFUS..BTL 85 ML IV (16:26)
== END 2023-06-22 15:00 | disposition home or self-care (01) ==
LOC: HO.CT 14:59
PROVIDERS: PCP Internal Medicine; Visit Provider Urology
DX: N20.0 Calculus of kidney (principal)
CPT/HCPCS: 74178; Q9967

== ENCOUNTER 2023-07-13 15:14 | Outpatient (AMB) | payer MEDICARE, SELFPAY ==
--- NOTE | 2023-07-13 15:36 | A.OFFVIS_ITS ---
Intake Visit Reasons: 6m/CT Intake Note: Patient presents today for a follow-up nephrolithiasis: Meds- None Allergies to Antibiotic- No Known Allergies Blood Thinner- None Obstetric Assistant Required: No Accompanied by: Self / Same As Patient Allergies No Known Allergies Allergy (Verified 05/12/23 15:45) Medication List - Last Reconciled 07/13/23 by Sabiha Swartz MD albuterol sulfate 90 mcg/actuation (Ventolin HFA) inhalation atorvastatin 10 mg PO DAILY cetirizine (Zyrtec) 10 mg PO DAILY PRN fluticasone furoate 50 mcg/actuation inhalation fluticasone propionate 50 mcg/actuation (Flovent Diskus) 1 inh inhalation BID fluticasone propionate 50 mcg/actuation 2 sprays intranasal DAILY fluticasone propionate 110 mcg/actuation (Flovent HFA) 1 puff PO BID hydrochlorothiazide 25 mg PO DAILY lisinopril 5 mg PO DAILY losartan 25 mg PO DAILY HPI Comments Details: 07/13/23--Kendal is a 72-year-old female who presents today to the office for a follow-up for nephrolithiasis. She had CT urogram done and I have reviewed results multiple stones up to 5 are noted in each kidney measuring from punctate up to 3 mm. The patient is currently asymptomatic. She has been increasing her water intake and drinking lemonade. She is taking vitamin B6 100 mg daily. Emiliano flores discussed follow-up in 1 year renal ultrasound in 24 hour urine prior. Review of charts: 10/27/2022? She is followed today for repeat litholink results. She was last seen by me on 07/26/2022 for litholink results. The patient was advised to continue Vitamin B 6 100mg daily, and consume adequate water intake and low sodium diet during that time. Repeat 24-hour urine collection test was ordered. She states she has been taking OTC vitamin B6 100 mg daily. I reviewed the 24-hour urine culture results from 08/01/2022 revealed Total urine volume 1.83 L, urine Calcium 212 mg slightly up from the prior collection, urine Oxalate was significantly improved to 33 mg down from 59, urine Sodium 292 mg and urine Citrate 739. Monitor kidney stones. CAT scan of the abdomen/pelvis stone protocol. Encouraged the patient to reduce sodium in diet. 07/26/2022? Telehealth fu--I have reviewed 24 hr urine collection, urine vol - 1.87 L, urine oxalate 59- elev, urine Na >200- elev., urine Ca <200 wnL? 15 minutes in face to face discussion greater than 50% in discussion regarding diagnosis and treatment options. Evaluation today-- blood:10 Alen/uL,? leukocytes:? 500 Celina/uL. I reviewed the 24 hr urine abnormalities including hyperoxaluria PFSH Medical History Renal stone Primary osteoarthritis of right knee Surgical History History of hysterectomy Social History Current occupational status: employed Current occupation: [employer] Review of Systems Const All systems reviewed & are unremarkable except as noted in HPI and below Reports no additional complaints Eyes Reports no additional complaints ENT Reports no additional complaints Card Reports no additional complaints Resp Reports no additional complaints GI Reports no additional complaints Reports as per HPI Musc Reports no additional complaints Skin/Breast Reports system reviewed and no additional complaints, except as documented Neuro Reports no additional complaints Psych Reports no additional complaints Endo Reports no additional complaints Charles/Lymph Reports no additional complaints Aller/Immun Reports no additional complaints Results Reviewed Results Reviewed: Date of Service: 06/22/23 EXAMINATION: CT ABDOMEN AND PELVIS WITHOUT AND WITH CONTRAST CLINICAL INFORMATION: Renal calculus. COMPARISON: Renal ultrasound 10/09/2021. CT abdomen and pelvis 08/17/2019. TECHNIQUE: Noncontrast CT of the abdomen and pelvis is performed followed by split bolus contrast-enhanced images using 85 mL Omnipaque 350 contrast.? Postcontrast imaging is performed during the combined nephrogram and excretion phase. Sagittal and coronal reformatted images were obtained on the technologist's workstation for both the precontrast and postcontrast phases. This CT examination was performed using dose optimization techniques as appropriate, variously including the following: *Automated exposure control *Adjustment of mA and/or kV according to patient size (this includes techniques or standardized protocols for targeted exams where dose is matched to indication/reason for exam; i.e. extremities or head) *Use of iterative reconstruction technique DLP: 1179 mGy-cm FINDINGS: LUNG BASES: Mild airway wall thickening and bronchiectasis. LIVER, GALLBLADDER, AND BILIARY TREE: The liver is normal in attenuation. Simple cyst in the left hepatic lobe for which no imaging follow-up is recommended. No biliary ductal dilatation. Multiple faceted gallstones on the order of 1-1.5 cm in size. No evidence of acute cholecystitis. PANCREAS: No discrete pancreatic mass. No pancreatic ductal dilatation. SPLEEN: Normal size spleen. ADRENAL GLANDS: No adrenal mass. KIDNEYS AND URETERS: 5 nonobstructing calculi in the left kidney ranging in size from punctate to 3 mm and 12-15 cm from the posterolateral skin surface. 5 nonobstructing calculi in the right kidney ranging in size from punctate to 3 mm and 13-16 cm from the posterolateral skin surface. The calculi are too small to accurately measure attenuation. The nephrograms are symmetric. A few tiny cortical hypodensities are seen bilaterally and too small to characterize but most likely cysts. No imaging follow-up is recommended. Contrast excretion is symmetric. No filling defects in the renal collecting systems. No hydroureteronephrosis. BLADDER: No discrete bladder mass. Trabeculated urinary bladder. GASTROINTESTINAL TRACT: Small hiatal hernia. Small and large bowel are normal in caliber. The appendix appears normal. A few scattered colonic diverticula without evidence of acute diverticulitis. ABDOMINAL WALL: Small fat-containing umbilical hernia. LYMPH NODES: No lymphadenopathy. VASCULAR: Mild aortoiliac atherosclerosis. No aortic aneurysm. PELVIC VISCERA: Hysterectomy. No pelvic mass. OSSEUS STRUCTURES: Degenerative facet disease in the lower lumbar spine. IMPRESSION: Multiple nonobstructing calculi bilateral kidneys without hydroureteronephrosis. No suspicious renal mass. Trabeculated urinary bladder wall. Cholelithiasis. Mild bronchiectasis and airway wall thickening visible at the lung bases. Assessment & Plan Assessment & Plan (1) Hyperoxaluria: Code(s): R82.992 - Hyperoxaluria Category: Medical (2) Bilateral kidney stones: Code(s): N20.0 - Calculus of kidney Category: Medical Plan Follow-up in 1 year 24 hour urine and renal ultrasound prior Orders: Orders US renal BI 10 Months N20.0 - Calculus of kidney Patient Instructions: The patient had an opportunity to ask questions regarding treatment plan. The patient expressed understanding and agreement with the above treatment plan. The patient is aware they should contact our office by phone for worsening of their current condition or the appearance of new symptoms. Compliance is encouraged with any medications and followup testing that is ordered. It is a privilege to be allowed the opportunity to participate in the urologic care of your patient. If you have any questions or concerns regarding treatment for the above conditions please do not hesitate to contact me. The office telephone contact is [phone]. This note is constructed in part using voice recognition software. While every effort has been made to ensure accuracy paper goods machine operator errors may have been included. Yours sincerely, Sabiha Swartz MD Coding Level of Care Code Est Pt Level 3 (19820) Diagnoses Hyperoxaluria R82.992 Bilateral kidney stones N20.0
== END 2023-07-13 16:11 | disposition home or self-care (01) ==
PROVIDERS: PCP Internal Medicine; Visit Provider Urology
DX: R82.992 Hyperoxaluria (principal); N20.0 Calculus of kidney
CPT/HCPCS: 99213

== ENCOUNTER → 2023-07-13 15:14 | Outpatient (BNVA) | payer MEDICARE, SELFPAY | PROVIDERS: PCP Internal Medicine; Visit Provider Urology | DX: R82.992 Hyperoxaluria (principal); N20.0 Calculus of kidney | CPT/HCPCS: 99212 ==

== ENCOUNTER 2023-11-15 15:12 | Outpatient (AMB) | payer MEDICARE, SELFPAY ==
--- NOTE | 2023-11-15 15:32 | A.OFFVIS_ITS ---
Intake Visit Reasons: OV-right knee OA, last injection 05/12/23 Intake Note: Kendal is a 73 year old female who presents today for a repeat injection for her right knee, last injection 05/12/23. Patient reports her last injection gave her relief but it took longer to work from the last time her got her last injec tion. Allergies No Known Allergies Allergy (Verified 11/15/23 15:38) HPI HPI OV-right knee OA, last injection 05/12/23: Details: 73-year-old hand dominant female who presents in the office today for a follow- up of right knee osteoarthritis. I last saw the patient on 05/12/23 when she was given a cortisone injection in the right knee. While in the office today, the patient reports her last cortisone injection provided her relief; however, it took longer to show its effect comparatively from the prior injections. She would like to have a repeat injection today. [facility] Medical History Renal stone Primary osteoarthritis of right knee Surgical History History of hysterectomy Social History Current occupational status: employed Current occupation: [employer] Review of Systems Const All systems reviewed & are unremarkable except as noted in HPI and below Physical Exam Const General: cooperative, healthy appearing and no acute distress Resp Effort & Inspection: normal respiratory effort and able to speak in complete sentences Cardio Rate: regular rate Peripheral pulses: Peripheral pulses 2+ throughout GI Palpation (GI): Soft to palpation Skin Lesions: no lesions Rashes: no rashes Extrem Other: Right knee: normal to inspection. No ecchymosis, redness or joint effusion. Patient is able to demonstrate full knee flexion and extension. Crepitus felt with ROM. No tenderness to the medial or lateral joint lines. NVI. Office Procedures Joint Injection/Aspiration Joint Injection/Aspiration Primary Site: right knee Prep: site was prepped using aseptic technique, ethochloride spray was applied and injection warnings given Injected: 80 mg of, DepoMedrol, with 8 mL of (2% plain lido ) and in the joint Approach Used: anterolateral Procedure: The patient tolerated the procedure well, but had some pain with the injection and there was some relief with the local anesthesia Coding 51259 - Large joint Procedure code (CPT) selection complete Assessment & Plan Assessment & Plan (1) Primary osteoarthritis of right knee: Code(s): M17.11 - Unilateral primary osteoarthritis, right knee Category: Medical Plan Ms. Edmonds is a 73-year-old hand dominant female who presents in the office today for a follow-up of right knee osteoarthritis. I last saw the patient on 05/12/23 when she was given a cortisone injection in the right knee. While in the office today, the patient reports her last cortisone injection provided her relief; however, it took longer to show its effect comparatively from the prior injections. She would like to have a repeat injection today. The patient was offered a cortisone injection in the right knee with 80 mg of Depo-Medrol. The patient was explained the risks, benefits, and alternatives to receiving this injection. After receiving consent for the injection, the patient had the procedure done while in the office today. The patient tolerated the procedure well with no complication. Follow up will be PRN, or sooner if needed. Patient Instructions: Scribed by Jazmine Domingo medical device, for Ambreen Benz PA-C on 11/15/23 at 3:40 pm EST. Coding Level of Care Code Est Pt Level 3 (07517) Diagnoses Primary osteoarthritis of right knee M17.11 CPT Codes Coding - 65138 Large joint: 33839 - Large joint ([id number])
== END 2023-11-15 15:48 | disposition home or self-care (01) ==
PROVIDERS: PCP Internal Medicine; Visit Provider Physician Assistant
DX: M17.11 Unilateral primary osteoarthritis, right knee (principal)
CPT/HCPCS: 20610; 99213

== ENCOUNTER → 2023-11-15 15:12 | Outpatient (BNVA) | payer MEDICARE, SELFPAY | PROVIDERS: PCP Internal Medicine; Visit Provider Physician Assistant | DX: M17.11 Unilateral primary osteoarthritis, right knee (principal) | CPT/HCPCS: 20610; 99212; J1010; J2003 ==

== ENCOUNTER 2024-04-17 10:25 | Outpatient (REF) | payer MEDICARE, SELFPAY ==
--- NOTE | ~2024-04-17 | MM_ITS ---
EXAMINATION: MM SCREENING DIGITAL BREAST TOMOSYNTHESIS, BILATERAL CLINICAL INFORMATION: Screening. Asymptomatic. COMPARISON: Mammography: Comparison is made with available priors TECHNIQUE: Digital breast mammography with tomosynthesis is performed in both the craniocaudal and mediolateral oblique views along with computer-aided detection (CAD). FINDINGS: The breasts are almost entirely fatty (ACR BI-RADS breast composition Category a). There are no significant masses, abnormal calcifications, or other abnormalities. MM/MM tomosynthesis screening BI IMPRESSION: No mammographic evidence of malignancy. ASSESSMENT: BI-RADS BI-RADS 1 - Negative RECOMMENDATION: Routine annual mammography screening. 1 year F/U This examination should not preclude the clinical evaluation of a suspicious palpable abnormality. This patient's information was entered into a reminder system with a target due date for their next mammogram. Electronically signed by: Tiana Red DO 04/19/2024 11:39 AM NAZARIO
--- OUTSIDE RECORDS SUMMARY | 2024-04-17 12:42 | XMS_ITS | Clinical Summary ---
Author Organization [facility] [address] [place] [address] [place] [phone] Phone Care Team Providers Care [employer] E[employer]ctor Name Role Phone Landon Mullen MD Primary Care Provider [phone] Allergies Active Allergy Reactions Criticality Noted Date Comments Other 06/29/2017 Seasonal Medications hydroCHLOROthiazi de (HYDRODIURIL) 25 mg tablet TAKE 1 TABLET DAILY 4 Active atorvastatin (LIPITOR) 10 mg tablet TAKE 1 TABLET AT BEDTIME 4 Active albuterol HFA (PROAIR HFA ; PROVENTIL HFA ; VENTOLIN HFA) 90 mcg/actuation inhaler Inhale 2 Puffs into the lungs 4 times daily as needed for Cough or Wheezing. 4 Active mv-mn/folic ac/calcium/vit K1 (WOMEN'S 50 PLUS MULTIVITAMIN ORAL) Take by mouth. Active fluticasone HFA (FLOVENT HFA) 110 mcg/actuation inhaler Inhale 1 Puff into the lungs 2 times daily. 3 Active pyridoxine (B-6) 100 mg tablet Take 1 Tablet by mouth daily. Active glucosamine/chond roitin/C/Nick (GLUCOSAMINE 1500 COMPLEX ORAL) Take 1,500 mg by mouth daily. Active cetirizine (ZyrTEC) 10 mg tablet Take 10 mg by mouth daily. Active calcium carbonate/vitamin D3 (CALCIUM 500 + D ORAL) Take 1 tablet by mouth daily. Active cholecalciferol (VITAMIN D-3) 50 mcg (2,000 unit) tablet Take by mouth. Active Arnuity Ellipta 100 mcg/actuation blister with device inhaler Inhale 1 puff by mouth 1 (one) time each day. 3 each 1 4 Active losartan (COZAAR) 25 mg tablet TAKE 1 TABLET DAILY 90 tablet 4 Active fluticasone propionate (FLONASE) 50 mcg/actuation nasal spray USE 2 SPRAYS IN EACH NOSTRIL DAILY 48 g 5 Active Active Problems Problem Noted Date Diagnosed Date Kidney stones 09/10/2019 Severe obesity (BMI 35.0-39.9) with comorbidity 04/11/2019 Allergic rhinitis 06/29/2017 Essential hypertension 06/29/2017 Mild persistent asthma 06/29/2017 Osteoarthritis of right knee 06/29/2017 Vitamin D deficiency 06/29/2017 Encounters Date Type Department Care Team Description 03/26/2024 8:00 AM EST Office Visit Adult Medicine [address] [phone] Landon Mullen MD Encounter for subsequent annual wellness visit (AWV) in Medicare patient (Primary Dx); Essential hypertension; Hypercholesterolemia; Encounter for long-term (current) use of medications; Mild persistent asthma without complication; Obesity (BMI 30-39.9) from Last 3 Months Immunizations Name Administration Dates Next Due Influenza Quadravalent, MDCK , 0.5ml, preservative free (Flucelvax) 6mo and older 12/31/2016 Influenza trivalent, 0.5mL ( Fluad) 65yo and older 12/03/2017 Influenza trivalent, 0.5mL, preservative free (Fluarix; FluLaval; Fluzone) ages 6mo and older (Afluria) 3 years and older 11/25/2018,01/05/2016,12/27/2014,11/08,12/07/2012,01/31/2012,11/12/2010 Pfizer SARS-CoV-2 COVID-19, mRNA, LNP-S, preservative free 01/09/2021 Pneumococcal conjugate 13 va lent (Prevnar 13, PCV13) 2mo and older 04/17/2018 Pneumococcal polysaccharide 23 valent (Pneumovax 23) 2yo and older 01/19/2021,07/17/2015 Td Tetanus diptheria (Tdvax) 7yo and older 04/17/2018,03/10/2005 Tdap Tetanus diptheria acell ular pertussis (Boostrix; Adacel) 7yo and older 03/29/2013 Surgical History Surgery Date Site/Laterality Comments OTHER SURGICAL HISTORY PROCEDURE: BONE MARROW ASPIRATION; COMMENT: donor for brother HYSTERECTOMY PROCEDURE: HISTORICAL HYSTERECTOMY; COMMENT: w/o BSO Family History Medical History Relation Name Comments Lymphoma Brother 1 Alcohol abuse Brother 2 Diabetes Father Dementia Mother Diabetes Sister 1 ? type 1 Alcohol abuse Sister 2 Breast cancer Neg Hx Colon cancer Neg Hx Colon polyps Neg Hx Ovarian cancer Neg Hx Relation Name Status Comments Brother 1 Brother 2 Alive Father Mother Alive Sister 1 Alive Sister 2 Social History Tobacco Use Types Packs/Day Years Used Date Smoking Tobacco: Never Smokeless Tobacco: Never Alcohol Use Standard Drinks/Week Comments Yes 0 (1 standard drink = 0.6 oz pur e alcohol) Housing Instability Answer Date Recorde d Are you worried that in the next 2 months you may not have stable housing? No 03/20/2024 Food Access & Nutrition Answer Date Rec orded Do you have access to a vari ety of food including fruits and vegetables? Yes 03/20/2024 Access to Healthcare Answer Date Record ed Within the last 3 months, ho w many times did you visit the emergency department for your medical care? 0 03/20/2024 Health Literacy Answer Date Recorded How often do you need to hav e someone help you when you read instructions, pamphlets, or other written material from your doctor or pharmacy? Never 03/20/2024 Caregiver: How often do you need to have someone help you when you read instructions, pamphlets, or other written material from your doctor or pharmacy? Not on file 03/20/2024 Financial Risk Answer Date Recorded How hard is it for you to pa y for the very basics like food, housing, medical care, and air conditioning / heating? Not very hard 03/20/2024 Transportation Answer Date Recorded Has the lack of transportati on kept you from meetings, work, or from getting things needed for daily living? Not on file 03/20/2024 Has the lack of transportati on kept you from medical appointments or from getting medications? No 03/20/2024 Social Isolation Answer Date Recorded How often do you feel lonely or isolated from th ose around you? Never 03/20/2024 Food Risk Answer Date Recorded Within the past 12 months we worried whether our food would run out before we got money to buy more. Never true 03/20/2024 Within the past 12 months th e food we bought just didn't last and we didn't have money to get more. Never true 03/20/2024 Dependent Care Answer Date Recorded Do you need help finding or paying for care for your loved ones. For example, children's zoo caretaker or elderly care for an older adult? No 03/20/2024 Education Answer Date Recorded Do you think completing more education or training, like finishing a GED, going to college, or learning a trade, would be helpful for you? No 03/20/2024 Employment and Income Answer Date Recor ded During the last four weeks, have you been actively looking for work? No 03/20/2024 Living Situation Answer Date Recorded What is your living situation? 0 03/20/2024 Comments Unknown Sex and Gender Information Value Date Recorded Sex Assigned at Female 01/27/2024 4:33 PM EST Legal Sex Female 2:17 PM EST Gender Identity Female 01/27/2024 4:33 PM EST Sexual Orientation Straight 01/27/2024 4: 33 PM EST Obstetrics History Last Filed Vital Signs Vital Sign Reading Time Taken Comments Blood Pressure 128/70 03/26/2024 7:57 AM EST Pulse 79 03/26/2024 7:57 AM EST Temperature 36.6 ??C (97.9 ??F) 03/26/2024 7:57 AM ES T Respiratory Rate 16 03/26/2024 7:57 AM EST Oxygen Saturation 96% 03/26/2024 7:57 AM EST Inhaled Oxygen Concentration - - Weight 100 kg (220 lb 8 oz) 03/26/2024 7:[address] Height 170.2 cm (5' 7 ) 03/26/2024 7:57 AM EST Body Mass Index 34.54 03/26/2024 7:57 AM EST Plan of Treatment Upcoming Encounters Date Type Department Care Team (Late st Contact Info) Description 10/05/2024 3:30 PM EDT Office Visit Adult Medicine [address] [phone] Landon Mullen MD [address] [place] [id number] Health Maintenance Due Date Last Done Comments Zoster Vaccines (1 of 2) 2002 RSV Immunization Patients 60+ Years Old (1 - Risk 60-74 years 1-dose series) 2012 COVID-19 Vaccine ( - season) 2023 11/21/2021, 01/09/2021, 05/13/2020, Additional history exists Depression Screening 03/20/2025 03/20/2024 Social Influencers of Health Screening 03/20/2025 03/20/2024 Falls Risk Assessment 03/26/2025 03/26/2024, 024 Hypertension/CHF/CAD Annual BMP Blood Test 03/26/2025 03/26/2024, 09/23/2023, 09/23/2023 Medicare Annual Wellness Visit 03/26/2025 03/26/2024 Breast Cancer Screening 04/12/2025 04/12/2023 DTaP,Tdap,and Td Vaccines (4 - Td or Tdap) 04/17/2028 04/17/2018, 03/29/2013, 03/10/2005 Colorectal Cancer Screening: Colonoscopy 08/18/2028 08/18/2018 Cholesterol Screening (Lipid Panel) 03/26/2029 03/26/2024, 09/23/2023, 09/23/2023 Osteoporosis Screening (Bone Density Screening) 03/17/2031 03/17/2021 Hepatitis C Screening Completed 04/17/2018 Pneumococcal Vaccine: 50+ Years Completed 01/19/2021, 04/17/2018, 07/17/2015 Influenza Vaccine Completed 11/19/2023, , 11/14/2021, Additional history exists HIB Vaccines Aged Out No longer eligi ble based on patient's age to complete this topic HPV Vaccines Aged Out No longer eligi ble based on patient's age to complete this topic Hepatitis A Vaccines Aged Out No long er eligible based on patient's age to complete this topic Hepatitis B Vaccines Aged Out No long er eligible based on patient's age to complete this topic IPV Vaccines Aged Out No longer eligi ble based on patient's age to complete this topic MMR Vaccines Aged Out No longer eligi ble based on patient's age to complete this topic Meningococcal ACWY Vaccine Aged Out N o longer eligible based on patient's age to complete this topic Meningococcal B Vacine Aged Out No lo nger eligible based on patient's age to complete this topic RSV Immunization Patients Under 20 months Aged Out No longer eligible based on patient's age to complete this topic Varicella Vaccines Aged Out No longer eligible based on patient's age to complete this topic Procedures Procedure Name Priority Date/Time Associated Diagnosis Comments LIPID PANEL WITH REFLEX TO DIRECT LDL Routine 03/26/2024 9:00 AM EST Hypercholesterolemia COMPREHENSIVE METABOLIC PANEL Routine 03/26/2024 9:00 AM EST Essential hypertension Encounter for long-term (current) use of medications MAMMOGRAPHY Routine 04/12/2023 FALLS RISK ASSESSMENT Routine 03/22/2023 DXA BONE DENSITY STUDY 1+ SITS AXIAL SKEL Routine 03/17/2021 3:56 PM EST Encounter for screening for osteoporosis COLONOSCOPY Routine 08/18/2018 HEPATITIS C SCREENING Routine 04/17/2018 from Last 3 Months or Most Recently Relevant to Health Maintenance Results * Lipid panel with reflex to direct LDL (03/26/2024 9:00 AM EST) Cholesterol 157 0 - 200 mg/dL LAB CHEMISTRY METHOD 03/26/2024 3:00 PM EST [facility] Triglycerides 82 0 - 150 mg/dL LAB CHEMISTRY METHOD 03/26/2024 3:00 PM EST [facility] HDL 61 >=40 mg/dL LAB CHEMISTRY METHOD 03/26/2024 3:00 PM EST [facility] LDL Calculated 80 0 - 100 mg/dL LAB CHEMISTRY METHOD 03/26/2024 3:00 PM [facility] VLDL Cholesterol Herve 16.4 mg/dL LAB CHEMISTRY METHOD 03/26/2024 3:00 PM [facility] Non HDL Chol. (LDL+VLDL) 96 <145 mg/dL LAB CHEMISTRY METHOD 03/26/2024 3:00 PM [facility] Chol/HDL Ratio 2.6 0.0 - 4.4 LAB CHEMISTRY METHOD 03/26/2024 3:00 PM [facility] Blood Venous blood specimen / Unknown Venipuncture / Unknown 03/26/2024 9:00 AM EST 03/26/2024 9:00 AM EST us Landon Mullen MD LAB BLOOD ORDERABLES Final Resu lt [facility] [address] [place] [address], [place] [phone] * (ABNORMAL) Comprehensive metabolic panel (03/26/2024 9:00 AM EST) Sodium 141 133 - 145 mmol/L LAB CHEMISTRY METHOD 03/26/2024 2:57 PM [facility] Potassium 3.8 3.5 - 5.5 mmol/L LAB CHEMISTRY METHOD 03/26/2024 2:57 PM [facility] Chloride 103 96 - 110 mmol/L LAB CHEMISTRY METHOD 03/26/2024 2:57 PM [facility] CO2 34(H) 21 - 32 mmol/L LAB CHEMISTRY METHOD 03/26/2024 2:57 PM [facility] Anion Gap 4 3 - 11 LAB CHEMISTRY METHOD 03/26/2024 2:57 PM [facility] Glucose 105(H) 70 - 100 mg/dL LAB CHEMISTRY METHOD 03/26/2024 2:57 PM [facility] BUN 25 5 - 25 mg/dL LAB CHEMISTRY METHOD 03/26/2024 2:57 PM [facility] Creatinine 0.77 0.50 - 1.10 mg/dL LAB CHEMISTRY METHOD 03/26/2024 2:57 PM [facility] eGFR 83 >=60 mL/min/1. 73m2 LAB CHEMISTRY METHOD 03/26/2024 2:57 PM [facility] Comment:Calculation based on the??Chronic Kidney Disease Epidemiology Collaboration (CKD-EPI) equation refit??without adjustment for race. BUN/Creatinine Ratio 32.5 LAB CHEMISTRY METHOD 03/26/2024 2:57 PM [facility] Calcium 9.5 8.5 - 10.5 mg/dL LAB CHEMISTRY METHOD 03/26/2024 2:57 PM [facility] AST (SGOT) 21 10 - 42 unit/L LAB CHEMISTRY METHOD 03/26/2024 2:57 PM [facility] ALT (SGPT) 37 10 - 60 unit/L LAB CHEMISTRY METHOD 03/26/2024 2:57 PM [facility] Alkaline Phosphatase 73 42 - 121 unit/L LAB CHEMISTRY METHOD 03/26/2024 2:57 PM [facility] Total Protein 6.7 6.0 - 8.0 g/dL LAB CHEMISTRY METHOD 03/26/2024 2:57 PM [facility] Albumin 3.5 3.2 - 5.0 g/dL LAB CHEMISTRY METHOD 03/26/2024 2:57 PM [facility] Total Bilirubin 0.6 0.0 - 1.4 mg/dL LAB CHEMISTRY METHOD 03/26/2024 2:57 PM [facility] Blood Venous blood specimen / Unknown Venipuncture / Unknown 03/26/2024 9:00 AM EST 03/26/2024 9:00 AM EST us Landon Mullen MD LAB BLOOD ORDERABLES Final Resu lt [facility] [address] [place] [address], * Hm Mammography (04/12/2023) Mammogram abstract [facility] /sr Anatomical Region Laterality Modality Other us Historical Provider HEALTH MAINTENANCE Final Result * Falls Risk Assessment (03/22/2023) Pathologist [facility] Falls Risk Assessment abstracted us Historical Provider HEALTH MAINTENANCE Final Result * DXA BONE DENSITY STUDY 1+ SITS AXIAL SKEL (03/17/2021 3:56 PM EST) Anatomical Region Laterality Modality Bone Densitometr y 05/12/2020 3:41 PM EDT Narrative 03/18/2021 11:53 AM EST BONE DENSITY (DEXA) ? Lumbar Spine T-score is -0.3. ?? (SD relative to 20-29 y/o adult) Z-score is 1.7. ??(SD relative to age matched peers) This is considered normal by WHO criteria. Left Hip T-score is -1.5. Z-score is 0.2. This is considered osteopenia by WHO criteria. IMPRESSION: This patient is considered have osteopenia by WHO criteria. This patient has a 14% risk of major osteoporotic fracture and a 2.0% risk of hip fracture over the next 10 years. (World Health Organization Fracture Risk Assessment) [facility] Department of Internal Medicine recommends using National Osteoporosis Foundation (NOF) guidelines in treatment decisions related to osteoporosis. NOF guidelines suggest considering treatment for postmenopausal women and men aged 50 or older presenting with the following: History of hip or vertebral fracture. T-score = -2.5 (DXA) at the femoral neck, total hip, or spine, after appropriate evaluation to exclude secondary causes. Low bone mass (T-score between -1.0 and -2.5 at the femoral neck or spine) AND a 10-year probability of a hip fracture = 3% OR a 10-year probability of a major osteoporosis-related fracture = 20% based on the [place]-adapted WHO algorithm Please note that all treatment decisions require clinical judgment and consideration of individual patient factors, including patient preferences, co-morbidities, previous drug use, risk factors not captured in the FRAX model (e.g., frailty, falls, vitamin D deficiency, increased bone turnover, interval significant decline in bone density) and possible under- or over-estimation of fracture risk by FRAX. Optional alternative screening schedule based on chandra Rand., [facility] March 04, 2011 for patients with osteopenia (based on hip BMD T-score) is as follows: * ??advanced osteopenia (T scores -2.00 to -2.49), BMD testing every year * ??moderate osteopenia (T scores -1.50 to -1.99), BMD testing every 5 years mild osteopenia or normal BMD (T scores -1.50 and higher), BMD testing every 15 years Procedure Note Lisa Foreman MD - 02/02/2022 BONE DENSITY (DEXA) Lumbar Spine T-score is -0.3. (SD relative to 20-29 y/o adult) Z-score is 1.7. (SD relative to age matched peers) This is considered normal by WHO criteria. Left Hip T-score is -1.5. Z-score is 0.2. This is considered osteopenia by WHO criteria. IMPRESSION: This patient is considered have osteopenia by WHO criteria. This patienthas a 14% risk of major osteoporotic fracture and a 2.0% risk of hip fracture over the next10 years. (World Health Organization Fracture Risk Assessment) [facility] Department of Internal Medicine recommendsusing National Osteoporosis Foundation (NOF) guidelines in treatment decisions related toosteoporosis. NOF guidelines suggest considering treatment for postmenopausal women and menaged 50 or older presenting with the following: History of hip or vertebral fracture. T-score = -2.5 (DXA) at the femoral neck, total hip, or spine, afterappropriate evaluation to exclude secondary causes. Low bone mass (T-score between -1.0 and -2.5 at the femoral neck or spine)AND a 10-year probability of a hip fracture = 3% OR a 10-year probability of a majorosteoporosis-related fracture = 20% based on the [place]-adapted WHO algorithm Please note that all treatment decisions require clinical judgment andconsideration of individual patient factors, including patient preferences, co- morbidities,previous drug use, risk factors not captured in the FRAX model (e.g., frailty, falls, vitaminD deficiency, increased bone turnover, interval significant decline in bone density) andpossible under- or over-estimation of fracture risk by FRAX. Optional alternative screening schedule based on chandra Rand., NEJMJanuary 2011 for patients with osteopenia (based on hip BMD T-score) is as follows: * advanced osteopenia (T scores -2.00 to -2.49), BMD testing every year * moderate osteopenia (T scores -1.50 to -1.99), BMD testing every 5years mild osteopenia or normal BMD (T scores -1.50 and higher), BMD testingevery 15 years Jenifer Mast MD IMG DXA PROCEDURES Final Res ult * Colonoscopy (08/18/2018) [facility] Colonoscopy no interpretation , abstracted Anatomical Region Laterality Modality Other Historical Provider HEALTH MAINTENANCE Final Result * Hepatitis C Screening (04/17/2018) [facility] Hepatitis C Screening abstracted Historical Provider HEALTH MAINTENANCE Final Result from Last 3 Months or Most Recently Relevant to Health Maintenance Insurance MEDICARE [facility] Advance Directives * Full Code - Confirmed (Latest Code Status on File) Date Activated Date Inactivated Comments 03/26/2024 8:12 AM This code stat us was ascertained in the following way: Code status discussion: discussion with patient To update the patient's code status, place a code status order. Do not modify or discontinue any currently active code status orders. Care Teams Structural [employer] Equipment E[employer] Relationship Specialty Start Date End Date Landon Mullen MD [address] [place] [id number] PCP - General Internal Medicine 07/15/20
--- OUTSIDE RECORDS SUMMARY | 2024-04-17 12:42 | XMS_ITS | Continuity of Care Document ---
Author Organization Formerly [facility] [place] Address [address] [place] [address] Phone Care Team Providers Care Stoner Hand Name Role Phone Addie Palomares NP Unavailable Unavailable Allergies, Adverse Reactions, Alerts Substance Reaction Status Criticality gluten Active No Information pollen extracts Active No Informati on TAPE, PERMEABLE ADHESIVE Active No Information Medications Medication Instructions Dosage Effective Dates (start - stop) Status Comments rosuvastatin 10 mg tablet take 1 tablet by oral route every day for hyperlipidemia 10 MG - Active losartan 100 mg-hydrochlorothiazi de 12.5 mg tablet take 1 tablet by oral route every day 1.00 tablet - Active Procedures Procedure Date Offic/outpt E&m Estab Mod-hi 2 24 Flu Vaccine Trivalent Admin Flu Virus Vac-no Phys Sr 24 MOST RECENT SYSTOLIC BP >= 140 24 DIAST BP 80-89 MM HG MED LIST DOCD IN [facility] RVW MEDS BY RX/DR IN [facility] MOST RECENT DIASTOLIC BP < 80 MM HG SYST BP GE 130 - 139MM HG MED LIST DOCD IN [facility] Preven Meds Pt; 65/> Annual Wellness Visit - Subsequent ANNUAL DEPRESSION SCREENING - 15MINS Aug No Charge Visit MOST RECENT DIASTOLIC BP < 80 MM HG MOST RECENT SYSTOLIC BP >= 140 23 Preven Meds Pt; 65/> Annual Wellness Visit - Subsequent MOST RECENT SYSTOLIC BP >= 140 22 Offic/outpt E&m Estab Mod-nc 2 22 MOST RECENT DIASTOLIC BP < 80 MM HG MOST RECENT SYSTOLIC BP >130 Annual Wellness Visit - Subsequent Preven Meds Pt; 65/> ANNUAL DEPRESSION SCREENING - 15MINS Apr CYTOPATH, C/V, THIN LAYER Offic/outpt E&m New Mod-nc 45 2 ANNUAL DEPRESSION SCREENING - 15MINS Feb Admin Pneumococ Vac-no Phys Sr 18 Pneumococcal Vaccine 13 Valent 18 Offic/outpt E&m Estab Low-mod 8 Destrct Benign Les/warts Up To Offic/outpt E&m Estab Low-mod 8 Preven Meds Pt; 40-64 Offic/outpt E&m Estab Low-mod 5 Immuniz Admin; 1/combo Vacc/to 15 ZOSTER VACC, SC Preven Meds Pt; 40-64 Offic/outpt E&m Estab Low-mod 4 Offic/outpt E&m Estab Low-mod 4 Routine Venipuncture Preven Meds Pt; 40-64 TDAP VACCINE >7 IM Immuniz Admin; 1/combo Vacc/to 13 Offic/outpt E&m Estab Low-mod 2 Preven Meds Pt; 40-64 Preven Meds Pt; 40-64 Advance Directives Directive Yes / No Effective Date File Name No Information Encounters Encounter Description Practice Location Reason(s) For Visit Diagnoses Date Provider Providers Copied on Encounter Formerly [facility] [place] , [address], [place] , [place], [id number] , [place] tel: [phone] [facility] No Information 4 Jelani Addie. [address], [place], [address], [place]. tel: [phone] Offic/outpt E&m Estab Mod-hi 2 Formerly [facility] [place] , [address], [place] , [place], [id number] , [place] tel: [phone] [facility] Discuss osteoporosis Tx (chief complaint) Essential hypertensionMi xed hyperlipidemia Osteoporosis 4 Modestostephen Addie. [address], [place], [address], [place]. tel: [phone] Referring Provider: Addie Jones, [address], [place], [address]. tel: [phone] Preven Meds Pt; 65/> Formerly [facility] [place] , [address], [place] , [place], [id number] , [place] tel: [phone] [facility] wellness (chief complaint)Med icare preventive (chief complaint) Other specified menopausal and perimenopausal disordersAnosm iaEncounter for adult annual physical exam w/o abnormal findingMixed hyperlipidemia Essential hypertensionAl lergic rhinitis, unspecifiedIns omniaMild cognitive impairment, so statedPain in thoracic spine 4 Jelani Addie. [address], [place], [address], [place]. tel: [phone] Referring Provider: Addie Jones, [address], [place], [address]. tel: [phone] Formerly [facility] [place] , [address], [place] , [place], [id number] , [place] tel: [phone] [facility] Mass in the lt breastEncntr screen mammogram for malignant neoplasm of breast 4 Jelani Real. [address], [place], [address], [place]. tel: [phone] Referring Provider: Addie Jones, [address], [place], [address]. tel: [phone] No Charge Visit Formerly [facility] [place] , [address], [place] , [place], [id number] , [place] tel: [phone] [facility] No Information 3 Jelani Real. [address], [place], [address], [place]. tel: [phone] Referring Provider: Addie Jones, [address], [place], [address]. tel: [phone] Preven Meds Pt; 65/> Formerly [facility] [place] , [address], [place] , [place], [id number] , [place] tel: [phone] [facility] Wellness- (chief complaint)Med icare preventive (chief complaint) Encntr for general adult medical exam w/o abnormal findingsEssent ial hypertensionIn somniaMixed hyperlipidemia Hearing lossPersonal history of other Ca of skinTrigger thumb, left thumb 3 Jelani Real. [address], [place], [address], [place]. tel: [phone] Referring Provider: Addie Jones, [address], [place], [address]. tel: [phone] Formerly [facility] [place] , [address], [place] , [place], [id number] , [place] tel: [phone] [facility] Mass in the lt breast 3 Jelani Pollocke. [address], [place], [address], [place]. tel: [phone] Offic/outpt E&m Estab Mod-hi 2 Formerly [facility] [place] , [address], [place] , [place], [id number] , [place] tel: [phone] [facility] HTN- (chief complaint) Mass in the lt breastEssentia l hypertensionIn somnia 2 Jelani Pollocke. [address], [place], [address], [place]. tel: [phone] Referring Provider: Addie Jones, [address], [place], [address]. tel: [phone] Formerly [facility] [place] , [address], [place] , [place], [id number] , [place] tel: [phone] [facility] No Information 2 Jelani Real. [address], [place], [address], [place]. tel: [phone] Preven Meds Pt; 65/> Formerly [facility] [place] , [address], [place] , [place], [id number] , [place] tel: [phone] [facility] Wellness (chief complaint)Med icare preventive (chief complaint) Encntr screen mammogram for malignant neoplasm of breastEncntr for general adult medical exam w/o abnormal findingsEssent ial (primary) hypertensionSc reening for cervical cancerMild cognitive impairment, so stated 2 Jelani Georgeilie. [address], [place], [address], [place]. tel: [phone] Referring Provider: Addie Jones, [address], [place], [address]. tel: [phone] Offic/outpt E&m New Mod-hi 45 Formerly [facility] [place] , [address], [place] , [place], [id number] , [place] tel: [phone] [facility] Re Establish Care (chief complaint) Essential hypertensionPo stmenopausal atrophic vaginitis 2 Jelani Real. [address], [place], [address], [place]. tel: [phone] Referring Provider: Addie Modestostephen Jones, [address], [place], [address]. tel: [phone] Offic/outpt E&m Estab [facility] [place] , [address], [place] , [place], [id number] , [place] tel: [phone] [facility] HTN f/u (chief complaint) Essential hypertensionIn flamed seborrheic keratosisPain in right shoulder 8 Frandy Saenz. [address], [place], [place], [id number], [place]. tel: [phone] Referring Provider: Dany Jones, [address], [place], [address]. tel: [phone] Offic/outpt E&m Estab [facility] [place] , [address], [place] , [place], [id number] , [place] tel: [phone] [facility] HTN f/u (chief complaint) Essential hypertensionNo n-celiac gluten sensitivity 0 8 Frandy Saenz. [address], [place], [place], [id number], [place]. tel: [phone] Referring Provider: Dany Jones, [address], [place], [address]. tel: [phone] Preven Meds Pt; 40-64 Formerly [facility] [place] , [address], [place] , [place], [id number] , [place] tel: [phone] [facility] Wellness Exam (chief complaint)HTN (chief complaint) Encntr for general adult medical exam w/o abnormal findingsEssent ial hypertension 6 Frandy Saenz. [address], [place], [place], [id number], [place]. tel: [phone] Referring Provider: Dany Jones, [address], [place], [address]. tel: [phone] Offic/outpt E&m Estab Lowmod Formerly [facility] [place] , [address], [place] , [place], [id number] , [place] tel: [phone] [facility] HTN (chief complaint) Essential hypertensionVe rtigo 5 Frandy Saenz. [address], [place], [place], [id number], [place]. tel: [phone] Referring Provider: Dany Jones, [address], [place], [address]. tel: [phone] Preven Meds Pt; 40-64 Formerly [facility] [place] , [address], [place] , [place], [id number] , [place] tel: [phone] [facility] Wellness (chief complaint) ROUTINE MEDICAL EXAM 5 Frandy Saenz. [address], [place], [place], [id number], [place]. tel: [phone] Referring Provider: Dany Jones, [address], [place], [address]. tel: [phone] Formerly [facility] [place] , [address], [place] , [place], [id number] , [place] tel: [phone] [facility] Chest Swelling/mass/ lump 4 Frandy Saenz. [address], [place], [place], [id number], [place]. tel: [phone] Offic/outpt E&m Estab Lowmod Formerly [facility] [place] , [address], [place] , [place], [id number] , [place] tel: [phone] [facility] lump r arm pit (chief complaint) Chest Swelling/mass/ lumpSwelling In Head & NeckFatigue 4 Frandy Saenz. [address], [place], [place], [id number], [place]. tel: [phone] Referring Provider: Dany Jones, [address], [place], [address]. tel: [phone] Offic/outpt E&m Estab Low-mod Formerly [facility] [place] , [address], [place] , [place], [id number] , [place] tel: [phone] [facility] med check (chief complaint) Hypertension, UnspecifiedAnx iety 4 Frandy Saenz. [address], [place], [place], [id number], [place]. tel: [phone] Referring Provider: Dany Jones, [address], [place], [address]. tel: [phone] Formerly [facility] [place] , [address], [place] , [place], [id number] , [place] tel: [phone] [facility] labs (chief complaint) No Information 3 Frandy Saenz. [address], [place], [place], [id number], [place]. tel: [phone] Referring Provider: Dany Jones, [address], [place], [address]. tel: [phone] Preven Meds Pt; 40-64 Formerly [facility] [place] , [address], [place] , [place], [id number] , [place] tel: [phone] [facility] preventive exam (chief complaint) Routine Medical ExamHypertensi on, UnspecifiedRou marc Medical Exam 3 Frandy Saenz. [address], [place], [place], [id number], [place]. tel: [phone] Referring Provider: Dany Jones, [address], [place], [address]. tel: [phone] Offic/outpt E&m Estab Low-mod Formerly [facility] [place] , [address], [place] , [place], [id number] , [place] tel: [phone] [facility] med check (chief complaint) Hypertension, Unspecified 2 Frandy Saenz. [address], [place], [place], [id number], [place]. tel: [phone] Referring Provider: Dany Jones, [address], [place], [address]. tel: [phone] Preven Meds Pt; Formerly [facility] [place] , [address], [place] , [place], [id number] , [place] tel: [phone] [facility] PAP test (chief complaint)hig h blood pressure (chief complaint) Gynecological ExaminationRou marc Medical ExamHypertensi on, UnspecifiedRou marc Medical Exam 2 Frandy Saenz. [address], [place], [place], [id number], [place]. tel: [phone] Referring Provider: Dany Jones, [address], [place], [address]. tel: [phone] Preven Meds Pt; Formerly [facility] [place] , [address], [place] , [place], [id number] , [place] tel: [phone] [facility] No Information 7 Frandy Saenz. [address], [place], [place], [id number], [place]. tel: [phone] Referring Provider: Dany Jones, [address], [place], [address]. tel: [phone] Former[facility] [place] , [address], [place] , [place], [id number] , [place] tel: [phone] [facility] general exam (chief complaint)Fat igue (chief complaint)Hig h blood pressure (chief complaint) Routine Medical ExamHypertensi on NosAllergic Rhinitis Nos 6 Frandy Saenz. [address], [place], [place], [id number], [place]. tel: [phone] Referring Provider: Dany Jones, [address], [place], [address]. tel: [phone] Family History Family Member Type Diagnosis Age At Onset Father Problem (finding) Cardiovascular disease Mother Problem (finding) heart attack Father Problem alcoholism Mother Problem (finding) high blood pressure Father Problem (finding) prostate cancer 60 Mother Problem asthma Mother Problem (finding) stroke Sister Problem (finding) hypercholesterolemia Immunizations Vaccine Date Status Comments Influenza, injectable, trivalent, inactivated, adjuvanted, preservative free, 65 years+, Fluad Triv administered Source: New Immuniza tion Record [id number] administered Source: New Imm unization Record influenza, high dose seasona l, preservative-free administered Source: Other Provid er SARS-COV-2 (COVID-19) vaccin e, mRNA, spike protein, LNP, preservative free, 30 mcg/0.3mL dose ([employer]) administered Source: Other Pr ovider SARS-COV-2 (COVID-19) vaccin e, mRNA, spike protein, LNP, preservative free, 30 mcg/0.3mL dose ([employer]) administered Source: Other Pr ovider SARS-COV-2 (COVID-19) vaccin e, mRNA, spike protein, LNP, preservative free, 30 mcg/0.3mL dose ([employer]) administered Source: Other Pr ovider Pneumococcal conjugate PCV 13 administere d Source: New Immunization Record Influenza, injectable, split virus, preservative free, 3 years and older Afluria administered Note: MELVIN ; Source: S payam Unspecified Zostavax administered Source: New Imm unization Record Tdap administered Source: New Imm unization Record Payers Payer name Insurance type Covered libertarian ID Authoriza timoon(s) TRUE BLUE BL [id number] [employer] [id number] [employer] BL [id number] [employer] [place] [id number] [employer] [place] BL [id number] Social History Type Description Quantity Date Captured Comments Alcohol Use Details Unknown Caffeine Use Details Unknown Tobacco Use Status No Information Smoking Status No Information Sex Female Sexual Orientation Straight or heterosexual Gender Identity Female Chief Complaint And Reason For Visit No Information Reason For Referral Reason For Referral No Information Plan Of Treatment Date Type Action Status Goal Colonoscopy. Due on due Goal FIT-DNA. Due on due Goal Pneumococcal vaccine due Goal Influenza vaccine. Due on Oc due Goal DEXA Scan due Goal BP Cuff Calibration. Due on due Goal Mammogram. Due on due Goal FOBT. Due on due Goal ECG. Due on due Goal CBC due Goal Diabetes screeni ng (Fasting Glucose or A1C). Due on due Goal BMP. Due on due Goal Lipid panel. Due on due Goal Hepatitis C Screening. Due o n due Goal Diabetes screeni ng (Fasting Glucose or A1C). Due on due Goal ECG. Due on due Goal Lipid panel. Due on due Goal Influenza vaccine. Due on due Goal Pneumococcal vaccine due Goal Mammogram. Due on due Goal DEXA Scan due Goal FIT-DNA. Due on due Goal FOBT. Due on due Goal CBC due Goal Colonoscopy. Due on due Goal Hepatitis C Screening. Due o n due Goal BP Cuff Calibration. Due on due Goal Pneumococcal vaccine due Goal FOBT. Due on due Goal Influenza vaccine. Due on due Goal Colonoscopy. Due on due Goal FIT-DNA. Due on due Goal Mammogram. Due on due Goal Hepatitis C Screening. Due o n due Goal Diabetes screeni ng (Fasting Glucose or A1C). Due on due Goal BP Cuff Calibration. Due on due Goal CBC due Goal ECG. Due on due Goal Mammogram. Due on due Goal ECG. Due on due Goal DEXA Scan. Due on due Goal Pneumococcal vaccine due Goal BMP. Due on due Goal Diabetes screeni ng (Fasting Glucose or A1C). Due on due Goal CBC due Goal BP Cuff Calibration. Due on due Goal Lipid panel. Due on due Goal Influenza vaccine. Due on due Goal Colonoscopy. Due on due Goal FIT-DNA. Due on due Goal Hepatitis C Screening. Due o n due Goal ECG. Due on due Goal Hepatitis C Screening. Due o n due Goal Mammogram. Due on due Goal Influenza vaccine. Due on due Goal Pneumococcal vaccine due Goal Colonoscopy. Due on due Goal DEXA Scan. Due on due Goal BMP. Due on due Goal CBC due Goal Diabetes screeni ng (Fasting Glucose or A1C). Due on due Goal Lipid panel. Due on due Goal Lipid panel. Due on due Goal BMP. Due on due Goal ECG. Due on due Goal Diabetes screeni ng (Fasting Glucose or A1C). Due on due Goal CBC due Goal Hepatitis C Screening. Due o n due Goal Pneumococcal vaccine due Goal Influenza vaccine. Due on due Goal Colonoscopy. Due on 024 due Goal DEXA Scan. Due on 3 due Goal Mammogram. Due on 5 due Goal Colonoscopy. Due on due Goal Hepatitis C Screening. Due o n due Goal Influenza vaccine. Due on due Goal ECG. Due on due Goal Diabetes screeni ng (Fasting Glucose or A1C). Due on due Goal Lipid Panel. Due on 023 due Goal DEXA Scan. Due on 3 due Goal Pneumococcal vaccine due Goal Mammogram. Due on 4 due Goal BMP. Due on due Goal CBC due Goal ECG. Due on due Goal CBC due Goal Lipid Panel. Due on 023 due Goal Pap/HPV testing. Due on due Goal BMP. Due on due Goal Diabetes screeni ng (Fasting Glucose or A1C). Due on due Goal Colonoscopy. Due on 024 due Goal Pneumococcal vaccine due Goal DEXA Scan. Due on 2 due Goal Influenza vaccine. Due on due Goal Hepatitis C Screening. Due o n due Goal Mammogram. Due on due Goal Hepatitis C Screening. Due o n due Goal Influenza vaccine. Due on due Goal ECG. Due on due Goal Diabetes screeni ng (Fasting Glucose or A1C). Due on due Goal BMP. Due on due Goal CBC due Goal Lipid Panel. Due on due Goal DEXA Scan. Due on due Goal Colonoscopy. Due on due Goal Pneumococcal vaccine. Due on due Goal Pap/HPV testing. Due on due Goal CBC due Goal ECG. Due on due Goal Lipid Panel. Due on due Goal Pneumococcal vaccine. Due on due Goal Influenza vaccine. Due on due Goal DEXA Scan. Due on due Goal Colonoscopy. Due on due Goal Hepatitis C Screening. Due o n due Goal BMP. Due on due Goal Diabetes screeni ng (Fasting Glucose or A1C). Due on due Goal Hepatitis C Screening. Due o n due Goal Colonoscopy. Due on due Goal Pneumococcal vaccine. Due on due Goal Mammogram. Due on 9 due Goal DEXA Scan. Due on 2 due Goal Influenza vaccine. Due on due Goal ECG. Due on due Goal Lipid Panel. Due on 015 due Goal Diabetes screeni ng (Fasting Glucose or A1C). Due on due Goal BMP. Due on due Goal CBC. Due on due Goal ECG. Due on due Goal BP Cuff Calibration. Due on due Goal Lipid Panel. Due on 015 due Goal HIV screen. Due on 18 due Goal Depression screening. Due on due Goal Influenza vaccine. Due on Oc due Goal PCV13 Prevnar due Goal Pneumococcal vaccine. Due on due Goal DEXA Scan. Due on 8 due Goal Mammogram. Due on 9 due Goal Colonoscopy. Due on 024 due Goal Tdap. Due on due Goal Hepatitis C Screening. Due o n due Goal BMP. Due on due Goal Urinalysis. Due on 18 due Goal Diabetes screeni ng (Fasting Glucose or A1C). Due on due Goal CBC. Due on due Goal HIV screen. Due on 18 due Goal Depression screening. Due on due Goal Influenza vaccine. Due on Oc t03-2017 due Goal Mammogram. Due on 9 due Goal Colonoscopy. Due on 024 due Goal Pap/HPV testing. Due on due Goal Tdap. Due on due Goal Hepatitis C Screening. Due o n due Goal BMP. Due on due Goal Urinalysis. Due on 18 due Goal Diabetes screeni ng (Fasting Glucose or A1C). Due on due Goal CBC. Due on due Goal ECG. Due on due Goal BP Cuff Calibration. Due on due Goal Lipid Panel. Due on 015 due Goal FOBT/FIT. Due on due Goal HIV screen. Due on 16 due Goal Zoster vaccine due Goal Mammogram. Due on 6 due Goal Hepatitis C Screening. Due o n due Goal BMP. Due on due Goal Urinalysis. Due on 16 due Goal Diabetes screeni ng (Fasting Glucose or A1C). Due on due Goal CBC. Due on due Goal ECG. Due on due Goal Lipid Panel. Due on 016 due Referral Ordered: [facility] Webb -Otolaryngology (related to Anosmia) ordered Referral Ordered: DXA BONE DENSITY, AXIAL Appointment date/timeframe: Next Available ordered Referral Referred To: [place], [address] [phone] Ordered: Referrals: Otolaryngology. ENT Jon. Evaluate and treat Appointment date/timeframe: Next Available ordered Referral Ordered: Unilateral Diagnostic Mammo L ordered Referral Ordered: Screenin Mammo Unilateral Right ordered Referral Ordered: US EXAM, BREAST(S) Left ordered Referral Ordered: [facility] -Otolaryngology (related to Hearing loss) ordered Referral Ordered: Conrad Jesus -Orthopedic Surgery (related to Trigger thumb, left thumb) ordered Referral Referred To: Conrad Jesus [address] [place], [place], [phone] Ordered: Referrals: Orthopedic Surgery. Conrad Jesus. Evaluate and treat Appointment date/timeframe: Next Available ordered Referral Referred To: [facility] [address] [place], [phone] Ordered: Referrals: Otolaryngology. [facility]. Evaluate and treat Appointment date/timeframe: Next Available ordered Referral Ordered: DIAGNOSTIC MAMMOGRAM, BILATERAL ordered Referral Ordered: US GUIDE FOR BIOPSY Left breast ordered Referral Ordered: SCREENING MAMMO BILATERAL ordered Future Order: Lab Order BMP ([id number]), O rdered on: Ordered Future Order: Lab Order Vitamin D, 25-Hydroxy ([id number]), Ordered on: Ordered Future Order: Lab Order PTH, Int act ([id number]), Ordered on: Ordered History Of Present Illness Encounter Date Complaint History Of Prese nt Illness Discuss osteoporosis Tx Pt is he re to discuss osteoporosis TxPt concerns she is not taking her statin. she is going to try red rice yestAbove confirmedThe patient presents with concerns about her spine after reviewing her DEXA scan results. She reports that she has been taking vitamin D but stopped during the summer due to increased sun exposure. She plans to resume taking it now. The patient is also getting calcium through her diet and engages in walking and biking for exercise. She has not experienced any fractures from falls but has been knocked down by dogs while walking them. The patient denies regularly drinking more than 3 alcoholic beverages a day, long-term steroid use, or smoking.The patient has a history of high blood pressure and is at higher risk for heart attacks and strokes due to her family history. She has been taking statins intermittently and is considering trying red yeast rice. She reports cognitive decline and is concerned about the potential impact of statins on her cognition. The patient experiences aches and stiffness, which she manages with baby aspirin and curcumin. She has been monitoring her blood pressure at home, with readings around 130/75. The patient is due for labs in two weeks to check her hormone levels and has been advised to also have her parathyroid and vitamin D levels checked at that time. She is interested in receiving a flu shot during today's visit. wellness Wellness Female 64+ Last PAP - Any abnormal PAPs - noneAny vaginal bleeding post menopause?- noneUrinary incontinence: none, someLast Mammo - 06/2023 Last colon cancer screening - 08/2013Last Cholesterol Check - 3Advance directives- none; has at home but still working on itCovid- recommended in the fallAnnual Flu - 01/2021; recommended in the fallTdap - dueShingles - 04/2014Pneumonia- 2RSV- dueEKG on file- Vision screen last year- yes Dentist- regularlySkin Concerns- noneAlcohol- slightDiet- lots of fruits/veggies especially in summerExercise- walk, swim, bike daily Tobacco/lung cancer screening- nonePHQ-2- see PHQ-9Hep-C screening-Pt. concerns: she has a list of stuff, dexa scan, needs referral for lost of sense of smell, bodging disc in back.Above confirmedSwitched from trazodone to Unisom working well for insomnia. Does have chronic rhinitis which is longstandingTaking hormones from Dr. Hankins, unsure of what specificallySubjective:The patient presents for a wellness visit and reports a loss of sense of smell and taste for about three months. The patient has a history of allergic rhinitis and visited an ear, nose, and throat doctor 25 years ago. The patient has been using an rlal-hbq-hsovuke nasal spray from [employer] but stopped due to the loss of smell. The patient suspects that Unisom may be drying their nose.The patient reports that their blood pressure is lower in the summer due to increased activity from gardening. In the winter, the patient's blood pressure ranges from 140/80 to 85 and sometimes up to 150. The patient is currently taking Losartan and hydrochlorothiazide and is considering increasing the medication to maintain a blood pressure of 120. The patient has experienced neck pain around the C7 area but states it has improved. The patient has been engaging in bike riding and core strengthening exercises. There are no reported symptoms of numbness, tingling in the groin, or loss of control of bowel movements. The patient denies any chest pain, pressure, or shortness of breath.The patient mentions occasional urinary leakage but is taking hormones prescribed by Dr. Wooten, including estrogen and testosterone she believes but she's unsure. The patient had a mammogram in June and plans to repeat it next spring. The patient has a history of chronic rhinitis and has been using a nasal steroid spray similar to Flonase. The patient has been experiencing foot pain due to high arches and arthritis and has switched to cycling for relief. The patient wears five-finger shoes with arch support.The patient reports no major changes in bowel movements, occurring at least twice a day. The patient has not had a DEXA scan in 2021. The patient has had hepatitis C and HIV screening, both negative. Medicare preventive The ''Up and Go'' test took less than 30 seconds andthe client does not need help with activities of daily living. The client is not at risk for falls. The client has not fallen in the last year. The fall(s) did not result in injury. Client exercises daily. The client has smoke detectors, firearms, carbon monoxide detectors in the home. There is no radon in the client's home. Client reports using a seatbelt in vehicles. Relevant history is positive for alcohol use. Wellness- Wellness Female 64+ Last PAP -04/2021 Any abnormal PAPs - noAny vaginal bleeding post menopause?- deniesUrinary incontinence: in the past, but medications for HTN are helping and hormones. Taking vaginal estradiol which she's also found helpful prescribed by Dr. Medley, saw them in last few weeks. Not taking any progesteroneLast Mammo -06/2022 Any abnormal Mammos - yes; last with stable 4 mm mass at 9:30 L breast, suspected intramammary lymph node and recommends 12 mo f/uLast colon cancer screening -2013DEXA 2018 with osteopenia, T score -1.2 at hip, 02 at femoral neck, and -2.4 at lumbar spine; wishes to hold until next year. Taking vitamin D most of the year, doesn't take calciumLast Cholesterol Check - 04/2021 Advance directives- doesn't have, recommendedCovid- HolyTransaction x3- bivalent due; would like thisAnnual Flu - 2020Tdap - 2013Shingles - 2015Pneumonia-2017 PCV 13, 04/17/2021 PCV 23EKG on file- none on fileVision screen last year- retina dying seeing specialist yearly, is having progressive vision loss but still able to do her daily tasks, thought to be geneticSkin Concerns- denies, dermatology appoint in November of [facility], does use sunscreen regularlyAlcohol- minimalDiet-Eating fruits/veggies daily, no regular sweetened drinks, does have homemade kombuchaExercise- hiking 9 miles a weekTobacco/lung cancer fzlfoifth-AKG-5- filled out today on paperHep-C screening- nothing on filePt. concerns: discuss trazodone for sleep, would like to discuss trigger left thumb- she got a brace and wore it at night for 9 weeks and not any better- she notes she can pop the thumb out of joint, this painfulAbove confirmed. Feeling very wellElevated blood pressure today; home readings have been ~120's/70's; has brought home cuff in to office, this morning 135/70Tolreating cholesterol medication wellAlso taking fish oil dailyNo improvement in L thumb with bracing, used for nearly 8 weeksHas taken Ambien in the past with hangover effect, insomnia since age 42, sometimes uses THC edible maybe once weeklyInsomnia has improved, primarily trouble staying asleep not falling asleepAvoids afternoon caffeine, does use phone sometimes at night Medicare preventive The ''Up and Go'' test took less than 30 seconds andthe client does not need help with activities of daily living. The client is not at risk for falls. The client has not fallen in the last year. The fall(s) did not result in injury. Client exercises daily. The client has smoke detectors, firearms, carbon monoxide detectors in the home. There is no radon in the client's home. Client reports using a seatbelt in vehicles. Relevant history is positive for alcohol use. HTN- The patient is h ere today to discuss hypertension.Medications: LisinoprilHome BP range: 140/80 range was better when she first started lisinopril but finds now her BP is climbingAny recent signs of hypotension: Exercise: biking 25 miles per week/swimmingDiet: home cooked meals- keto/low carb, now back on carbs not loosing weightTobacco: deniesAlcohol: rarelyImmunizations: shingles- can get at local pharmacy-please adviseConcerns: patient reports having a dry cough she contributes to the lisinoprilPatient states she is due for 6 mo f/u left breast US but states she was told she could do a biopsy as well and would prefer to have the biopsy due to the characteristics of the mass-Above confirmed.HTN:Home blood pressures ~140/80Has checked home cuff for accuracyDenies ZAMORA, vision changes, chest pain/pressure, palpitations, edemaInsomnia:Long history of shift work and anxietyGets up at 6 to give dog insulin, usually in bed at 8-9 and doesn't have trouble falling asleep just staying asleepWhen up in middle of the night awake for 2-3 hoursWakes up with lots of energy but very tired mid day after exercise, often 2 hour napDenies loud snoring, apneic spellsNo afternoon caffeinePreviously on zolpidem but doesn't wish to resumeShe's prescribed vaginal estrogen and testosterone by provider in [place]. Hasn't been using estrogen since starting on HCTZ, previously had some urinary incontinence but has resolved. Uses testosterone for libido, wonders if I might prescribe both. Mar-04-2022 Wellness Wellness Female 64+ Last PAP - do today? Any abnormal PAPs - no history abnormalsAny vaginal bleeding post menopause?- noneLast Mammo - Any abnormal Mammos - reports hx of dense breast tissue, was followed by breast specialist for some time. Reports she had many biopsies in her 30'sLast colon cancer screening - Has had 2 colonoscopies, last ~7 years and normal. Last Cholesterol Check - 2015Advance directives- nothing on file, would like to obtain theseAnnual Flu - UTDCovid- UTDTdap - UTDShingles -UTD she believesPneumonia -UTD she believes EKG on file- nothing on fileVision screen last year- Sees eye doctor regularlySkin Concerns- look at her back today please, had a little itchy spot, self treated with liquid nitrogen. Has had basal cell carcinoma removed. Wears sunscreenAlcohol- a few times a monthDiet- Fruits/veggies daily, limited simple carbohydrates/sweetsExercise- walking daily, swimming a few days a weekTobacco/lung cancer screening- Never/NAPHQ-2- filled out onlineHep-C screening- nothing on file. Believes she's had this done, donates blood every 6 weeksPt. concerns: Kitty confirmedTakes multi-day vitamin plus vitamin D 2000 IU dailyHTN:Recall at last visit started on low dose HCTZ/lisinoprilIs taking 1 tablet a day, stopped cardiotoneFeels her anxiety has improved slightly as wellTaking at night seems to mitigate side effects, no worsened vertigoDoes have some short term memory loss. Nothing that affects her ability to get bills paid, cook, clean, make appointments Medicare preventive SLUMS assess ment completed, with a total score of 22, Mild Neurocognitive Disorder. The ''Up and Go'' test took less than 30 seconds andthe client does not need help with activities of daily living. The client is not at risk for falls. The client has not fallen in the last year. The fall(s) did not result in injury. Client exercises daily. The client has smoke detectors, firearms in the home. The client does not have carbon monoxide detectors in the home. There is no radon in the client's home. Client reports using a seatbelt in vehicles. Relevant history is positive for alcohol use. Studies Reviewed Pap, Image guid ed, HPV (Vanessa) w/Genotypes 16/18, ThinPrep performed on 04/17/2021. Interpretation: See module, Result: Negative. Negative for HPV Re Establish Care The patient is here today to establish care. Previous PCP: Dr Talamantes DO in [place]: unsure but evaluated oftenLast labs: yesterday for hormonesMammogram: 05/05/2018- negative results-[facility]UE([facility] [place])Dexa: 05/05/2018- osteopeniaPap: NA, last in 2011?Colonoscopy:5+ yrs ago- patient reports normal- [place] at Immunizations: IRIS report printed- DUE for PPV 23 and shingrixTobacco use: neverAlcohol use: 2 drinks per monthExercise: 2x per week swimming, walking dailyAdvance Directive? please discussConcerns today: BP concerns- patient 175/100 for highs- has had vertigo in the past from BP meds like lisinopril, HCTZ and one other but doesn't recall the nameAbove confirmed.HTN:First diagnosed at ~42 yoMother and 2 sisters also with HTN. Mother with CT and stroke, father with bypass x5Has been seen for HTN in the clinic before, previously was taking amlodipine and HCTZ in combination. Lisinopril gave her a cough per previous chart notesFelt HCTZ stopped being effective, very slight positional vertigo with lisinopril and cough, then started on amlodipine and had slight positional vertigoSister on metoprolol and lisinopril after [facility]ologyPeter [facility]ale blood pressures running ~135/80 when taking supplement below, has had rare readings ~175/95 on some days; typically checks at least a few times a week but will check less frequently if stable. In last 3 weeks 5-6 times has had elevated readings, ~50% of the time. Hasn't had home cuff checked. Taking cardiotone supplement with magnesium which she feels is working really wellDoes salt foods and eats julio regularly in morning. Limits fruit due to insulin resistance, eats multiple servings of veggies dailyFollowed dietary protocol in effort to limit progression to diabetes in last year then discontinued as it was too restrictiveDenies ZAMORA, blurred vision, CP, palpations, SOB, lower extremity edema. Was working on fixing up a house, doing the same now. 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 Has gained ~10 lbs and had trouble getting it offDoes take vaginal testosterone, estrogen/progesterone cream which is prescribed by her provider in [place], she plans to continue this with him. He obtained labs yesterday to monitor but results are not yet available.Also reports history of retinal degradation and sees retinal genetic opthalmologist every 2 years but notes some decreased visionDoes have a history of basal cell carcinoma. Rare alcohol use a few times a month and no history of tobacco use. Active walking daily and swimming several times weeklyLast DEXA w/osteopenia in 2019, last pap at age 60 (no history of abnormals), last colonoscopy 5 years ago and normal. UTD on COVID vaccine and flu, unsure of last Tdap. Due for mammogram (last 2 years ago) HTN f/u The patient is h ere today to discuss hypertension. Medication: Amlodipine 5 mg- pt states she feels she is metabolizing her medications too quickly and she sometimes takes two pills, will then feel a little light headed or nauseated, she does want to discuss other medication options. She would like to try another medication, one at a time, not necessarily two at a time, until she knows the first is working well for her. Home BP range: pt brought in home log todayAny recent signs of hypotension: deniesExercise: not right now- gets over 10,000 steps per day- would like to get more active in the futureDiet: restricted- keto type- no carbs at this time, low meat high fats(good fats)Tobacco use: no/ neverImmunizations: PCV-13-pt will get this today pleaseConcerns: medications- see above.Right shoulder is giving her trouble, she would like to wait until medicare for an MRI if that seems possible to wait. Pt denies any known recent injury, but is having trouble with ROM and daily living acts. Pt also has a mole on her back to be looked at today please. HTN f/u (comments) She said her mother had hypertension, mom seemed to do well earlier in her life and then developed some pretty significant hypertension later in life. She herself had some genetic testing through "[employer] [facility] which reveals she has a gene for severe hypertension. Looking back she's been on HCTZ, ARB, and amlodipine, the only one that really didn't work for her was lisinopril because it caused a cough. She brings in a list of blood pressure readings over the past month, generally 140-163/76-96, very few of them are actually in range. Also her shoulder is bothering her, seems to be improving slowly. She has a spot on her back were she had done some home cryotherapy and she said I wanted to recheck that after it had a chance to heal, it appears I had not mentioned it in my last note HTN f/u The patient is h ere today to discuss hypertension. Medication: Amlodipine 5mg Home BP range: 135-140/80Any recent signs of hypotension: NoneExercise: DailyDiet: Grain Free dietImmunizations: UTDConcerns: Continued elevated pressure, she states that last summer she was able to stop her medication, but had to restart this winter due to it rising again.Due for Labs, Consider HIV/ Hep C Screening HTN f/u (comments) Been pretty h ealthy over the past year or so, we've not seen her in over a year. 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 She thinks that she actually has a lectin intolerance, not just a gluten intolerance. She also wants some detail lab testing for lipoprotein A. and those sorts of issues. She is modifying her diet and for the most part doing well with that, by avoiding carbohydrates she has had a dramatic reduction in her general achiness and she feels that she is about 50% better cognitively and feels 10 years younger. She is also doing a lot of research about Alzheimer's, she claims that there is a doctor who can successfully reversed Alzheimer's by fine tuning the body including giving extra thyroid, she wants cognitive testing for a good baseline so that if she has any decline she might be eligible for treatment sooner rather than later. 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 She wants to stay with amlodipine but at a slightly higher dose. She continues to work and is a bit stressful for her but overall she is doing OK. She gets her lab work down at [facility] because she works there. Last EKG was 15 years ago, she also had an echo and apparently everything was fine. Strong family history of hypertension but she is the only one in her family stoddard enough to comply with medical treatment for this. She goes every other year with mammogram, up-to-date with colon cancer screening. She has a long-term history of IBS and is much better now that she is emphasizing fermented foods in her diet HTN (comments) See above Wellness Exam The patient is h ere today for her annual wellness exam. Last mammogram: 2013, normalLast dexa: has not had Last colonoscopy: 2013, normal, repeat after 10 years Last pap: 1 slide 2011 negativeSkin concerns: noneImmunizations: due for fluTobacco use: neverAlcohol use: 1 x monthExercise: active around her ranch but no formal exerciseAdvance Directive: She does not have a living will HTN She needs refill of amlodipine and requests a higher dose as she notes that the current dose does not last all day. States she does not take HCTZ normally because it makes her too dry. She has been taking HCTZ for 1 month because she has been out of amlodipine.Home BP range: 140s/80sDiet: Gluten free diet; eats a lot of fermented foods which are saltyEKG: due (had one 15 years ago in [place] that was abnormal)Labs: Needs blood work order sent to Can: elevated BP HTN (comments) She has gone off and on her HCTZ, her blood pressure got pretty high and she was off it so she restarted. Sometimes at work she is prone to dehydration, she feels that there is a lot of variability with her BP and she like to try something different. Losartan gave her a real tickle in her throat, she would like to try a different agent altogether. To the gluten free for a year, her energy level is fine, she is sleeping better and feels her overall health is better as well. She has a special solar spectrum light at home and that has really helped with her STD. She is off Lexapro. She is also sleeping fine off Ambien. She has had an episode of vertigo when she was driving, this lasted maybe 30 seconds and it was so severe she had to pull her car over to the side of the road. She still has this occasionally, it's worse with some position changes but usually this would mean with her walking or getting in and out of a car, but then even sometimes driving in a car seems to make this worse because of head movements. She does not seem to have her go when she moves her head rapidly from side to side or when she looks up. She her eyes have been checked, there is no hearing loss nor tinnitus. She is taking some supplemental vitamins but no stimulant medications HTN The patient is h ere today to discuss hypertension. Home BP range: 140/75Exercise: Daily Diet: Watches sodium intake, gluten free dietTobacco use: NeverConcerns: Vertigo issues for several months Wellness The patient is h ere today for her annual wellness exam. 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 Asthma tends to flare up a little in the winter but she did okay with it this year, she's actually had a reduction in her anxiety and depression this winter. She still does do better in the summer, she also purchased a light box and she feels that was helpful. She had foot surgery, which is improving fairly well from that. She is working a little less than before, she has her house paid off so that is a nice financial responsibility taken care of. Functional Status Date Functional Assessmen t No Information Instructions Date Instruction Additional Infor kingsley Patient Plan -Screen ing labs ordered-Pap Smear: no longer indicated-Mammogram: UTD earlier this spring-Colon cancer screening: due, prefers cologuard-Dexa: due, ordered-Hep C screening: reports hx negative screening-Lung cancer screening: NA-Immunizations: Recommended yearly COVID/flu/RSV, Tdap Q10 yrs, pneumonia, Shingrix-Recommend healthy diet focused on vegetables and fruits, lean protein, and healthy fats-Recommend at least 30 minutes of exercise 5 days a week- Recommend dental home- Recommend vitamin D 800-1,000 IU daily and 1200 mg calcium in diet and/or supplement-Recommend regular use of sunscreen Related to Encounter for adult annual physical exam w/o abnormal finding Patient Plan -Screen ing labs ordered-Pap Smear: no longer indicated-Mammogram: due for repeat 06/2023-Colon cancer screening: Normal 2013, repeat in 2023-Dexa: Osteopenia 2018, declines repeat until next year-Hep C screening: Declines as she's had in past and was negative-Lung cancer screening: NA-Immunizations: Will return for COVID booster, declines remainder aside from Shingrix and flu which she'll get this fall-Recommend healthy diet focused on vegetables and fruits, lean protein, and healthy fats-Recommend at least 30 minutes of exercise 5 days a week- Recommend dental home- Recommend vitamin D 800-1,000 IU daily and 1200 mg calcium in diet and/or supplement-Recommend regular use of sunscreen Related to Encntr for general adult medical exam w/o abnormal findings Assessments Type Assessment Date No Information Patient Care Teams Name Effective Dates (start - stop) Status Members No Information
--- OUTSIDE RECORDS SUMMARY | 2024-04-17 12:42 | XMS_ITS | Encounter Summary ---
Author Organization [facility] Address [address] [place] [address] Care Team Providers Care Email Engineer Name Role Phone Landon Mullen MD Primary Care Provider [phone] Reason for Visit * Reason Comments AWV Hypertension Encounter Details Date Type Department Care Team (Late st Contact Info) Description 03/26/2024 8:00 AM EST Office Visit Adult Medicine [address] [phone] Landon Mullen MD [address] [place] [id number] Encounter for subsequent annual wellness visit (AWV) in Medicare patient (Primary Dx); Essential hypertension; Hypercholesterolemia ; Encounter for long-term (current) use of medications; Mild persistent asthma without complication; Obesity (BMI 30-39.9) Social History Tobacco Use Types Packs/Day Years [...] care for your loved ones. 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 [...] Orientation Straight 01/27/2024 4: 33 PM EST documented as of this encounter Last Filed Vital Signs Vital Sign Reading [...] Mass Index 34.54 03/26/2024 7:57 AM EST documented in this encounter Progress Notes * Landon Mullen MD - 03/26/2024 8:00 AM EST Images from the original note were not included. Medicare Annual Wellness Visit Note Patient Name: Kendal Garcia Date of : 1950 Race: White Ethnicity: Not Hispan/Lat Date of Service: 03/26/2024 Kendal Garcia is a 73 y.o. female presenting for No chief complaint on file. History of Present Illness HPI Comprehensive Medical and Social History: Patient Active Problem List Diagnosis Allergic rhinitis Essential hypertension Kidney stones Mild persistent asthma Osteoarthritis of right knee Severe obesity (BMI 35.0-39.9) with comorbidity (CMS/LTAC, [facility]IN [facility]) Vitamin D deficiency Allergies Allergen Reactions Other Seasonal Current Outpatient Medications Medication Sig Dispense Refill albuterol HFA (PROAIR HFA ; PROVENTIL HFA ; VENTOLIN HFA) 90 mcg/actuation inhaler Inhale 2 Puffs into the lungs 4 times daily as needed for Cough or Wheezing. Arnuity Ellipta 100 mcg/actuation blister with device inhaler Inhale 1 puff by mouth 1 (one) time each day. 3 each 1 atorvastatin (LIPITOR) 10 mg tablet TAKE 1 TABLET AT BEDTIME calcium carbonate/vitamin D3 (CALCIUM 500 + D ORAL) Take 1 tablet by mouth daily. cetirizine (ZyrTEC) 10 mg tablet Take 10 mg by mouth daily. cholecalciferol (VITAMIN D-3) 50 mcg (2,000 unit) tablet Take by mouth. fluticasone HFA (FLOVENT HFA) 110 mcg/actuation inhaler Inhale 1 Puff into the lungs 2 times daily. fluticasone propionate (FLONASE) 50 mcg/actuation nasal spray USE 2 SPRAYS IN EACH NOSTRIL DAILY 48g 0 glucosamine/chondroitin/C/Nick (GLUCOSAMINE 1500 COMPLEX ORAL) Take 1,500 mg by mouth daily. hydroCHLOROthiazide (HYDRODIURIL) 25 mg tablet TAKE 1 TABLET DAILY losartan (COZAAR) 25 mg tablet TAKE 1 TABLET DAILY 90 tablet 0 mv-mn/folic ac/calcium/vit K1 (WOMEN'S 50 PLUS MULTIVITAMIN ORAL) Take by mouth. pyridoxine (B-6) 100 mg tablet Take 1 Tablet by mouth daily. No current facility-administered medications for this visit. No past medical history on file. Past Surgical History: Procedure Laterality Date HYSTERECTOMY PROCEDURE: HISTORICAL HYSTERECTOMY; COMMENT: w/o BSO OTHER SURGICAL HISTORY PROCEDURE: BONE MARROW ASPIRATION; COMMENT: donor for brother Social History Socioeconomic History Marital status: Spouse name: Not on file Number of children: Not on file Years of education: Not on file Highest education level: Not on file Occupational History Not on file Tobacco Use Smoking status: Never Smokeless tobacco: Never Substance and Sexual Activity Alcohol use: Yes Drug use: No Sexual activity: Not on file Other Topics Concern Not on file Social History Narrative Works at [employer] Family History Problem Relation Name Age of Onset Dementia Mother Diabetes Father Diabetes Sister ? type 1 Lymphoma Brother Alcohol abuse Sister Alcohol abuse Brother Breast cancer Neg Hx Colon polyps Neg Hx Colon cancer Neg Hx Ovarian cancer Neg Hx Immunizations: Immunization History Administered Date(s) Administered Influenza Quadravalent, MDCK, 0.5ml, preservative free (Flucelvax) 6mo and older 12/31/2016 Influenza trivalent, 0.5mL (Fluad) 65yo and older 12/03/2017 Influenza trivalent, 0.5mL, preservative free (Fluarix; FluLaval; Fluzone) ages 6mo and older (Afluria) 3 years and older 11/12/2010, 01/31/2012, 12/07/2012, 11/08/2013, 12/27/2014, 01/05/2016, 11/25/2018 [facility] SARS-CoV-2 COVID-19, mRNA, LNP-S, preservative free 04/22/2020, 05/13/2020, 01/09/2021 Pneumococcal conjugate 13 valent (Prevnar 13, PCV13) 2mo and older 04/17/2018 Pneumococcal polysaccharide 23 valent (Pneumovax 23) 2yo and older 07/17/2015, 01/19/2021 Td Tetanus diptheria (Tdvax) 7yo and older 03/10/2005, 04/17/2018 Tdap Tetanus diptheria acellular pertussis (Boostrix; Adacel) 7yo and older 03/29/2013 Hospitalization in the last year: Has not been hospitalized in the past 12 months. Current Providers and Suppliers: Patient Care Team: Landon Mullen MD as PCP - General (Internal Medicine) Patient does not have/use current medical supplier Risk Assessments: Cognitive Function Assessment No cognitive concerns, No screenings indicated. Depression Screening (PHQ2/9): Depression Screening Over the last 2 weeks, how often have you been bothered by little interest or pleasure in doing things?: (Patient-Rptd) (P) Not at all Over the last 2 weeks, how often have you been bothered by feeling down, depressed, or hopeless?: (Patient-Rptd) (P) Not at all Depression Risk: (Patient-Rptd) (P) 0 PHQ9 Full Set of Questions Over the last 2 weeks, how often have you been bothered by little interest or pleasure in doing things?: (Patient-Rptd) (P) Not at all Over the last 2 weeks, how often have you been bothered by feeling down, depressed, or hopeless?: (Patient-Rptd) (P) Not at all Depression Risk Score NEW: (Patient-Rptd) (P) 0 Depression Plan : Screen was negative Anxiety Screening: Alcohol Screening: Substance Abuse Screening: Pain: Pain Medications: Patient does not take any opioid medications BMI: Body mass index is 34.54 kg/m??. The BMI is above average. The patient received dietary education because they have an above normal BMI. Functional Ability and Level of Safety Review Health Status: No data recorded Activity of Daily Living (ADLs): No data recorded Instrumental Activities of Daily Living (IADLs): No data recorded Physical Activity: No data recorded Nutritional Assessment: No data recorded Social Influencer of Health (SIOH): Social Influencers of Health Within the past 12 months we worried whether our food would run out before we got money to buy more.: (Patient-Rptd) Never true Within the past 12 months the food we bought just didn't last and we didn't have money to get more.: (Patient-Rptd) Never true How hard is it for you to pay for the very basics like food, housing, medical care, and air conditioning / heating?: (Patient-Rptd) Not very hard Are you worried that in the next 2 months you may not have stable housing?: (Patient-Rptd) No Do you have access to a variety of food including fruits and vegetables?: (Patient-Rptd) Yes Within the last 3 months, how many times did you visit the emergency department for your medical care?: (Patient-Rptd) 0 Has the lack of transportation kept you from medical appointments or from getting medications?: (Patient-Rptd) No How often do you feel lonely or isolated from those around you?: (Patient-Rptd) Never How often do you need to have someone help you when you read instructions, pamphlets, or other written material from your doctor or pharmacy?: (Patient- Rptd) Never Sexual Health: Have you been bothered by sexual problems: No Fall Risk: Have you fallen in the past year? yes. Are you worried about falling? no. . Hearing: No data recorded Vision Screening: Required for Medicare Initial Preventative Physical Exam (IPPE) No data recorded Review of Systems Review of Systems Objective There were no vitals taken for this visit. Physical Exam Assessment/Plan Patient presented today for an Subsequent Medicare Wellness Visit with management of chronic condition(s). Assessment & Plan Advance Care Planning Discussion: Advance Care Planning was discussed. Kendal Garcia reports that she does have advance directives and/or surrogate decision maker. Patient has identified their surrogate decision maker. During the visit we discussed: Code Status was discussed Full Code - Confirmed A total time of 16 minutes or greater was spent on Advance Care Planning today :No Fall Prevention Education Discussed: no indication for specific intervention at this time Health Maintenance Topic Date Due Breast Cancer Screening Never done Zoster Vaccines (1 of 2) Never done RSV Immunization Patients 60+ Years Old (1 - Risk 60-74 years 1-dose series) Never done Medicare Annual Wellness Visit 09/18/2023 COVID-19 Vaccine ( season) 2023 Hypertension/CHF/CAD Annual BMP Blood Test 09/22/2024 Depression Screening 03/20/2025 Social Influencers of Health Screening 03/20/2025 Falls Risk Assessment 03/26/2025 DTaP,Tdap,and Td Vaccines (4 - Td or Tdap) 04/17/2028 Colorectal Cancer Screening: Colonoscopy 08/18/2028 Cholesterol Screening (Lipid Panel) 09/22/2028 Osteoporosis Screening (Bone Density Screening) 03/17/2031 Influenza Vaccine Completed Pneumococcal Vaccine: 50+ Years Completed Hepatitis C Screening Completed HIB Vaccines Aged Out Hepatitis B Vaccines Aged Out IPV Vaccines Aged Out Hepatitis A Vaccines Aged Out MMR Vaccines Aged Out Varicella Vaccines Aged Out Meningococcal ACWY Vaccine Aged Out Meningococcal B Vacine Aged Out HPV Vaccines Aged Out RSV Immunization Patients Under 20 months Aged Out Landon Mullen MD ADULT MEDICINE [address] [address] Dept: [phone] Dept * Landon Mullen MD - 03/26/2024 8:00 AM EST CHIEF COMPLAINT: AWV and Hypertension IDENTIFIER: Kendal Garcia is a 73 y.o. old female. HPI: Pt with hx of htn Pt currently on losartan 25 mg and hctz 25 mg bp Is at goal at 128/70 Pt denies light head/dizziness, shortness of breath , chest pain Pt had cough on lisinopril resolved now on the arb Pt with high cholesterol pt is on moderate intensity statin therapy Last ldl 72 09/2023 Pt with asthma pt is on arnuity Pt notes needing albuterol rarely pt notes using usually when she has uri symptoms ROS: GENERAL: Negative for malaise, significant weight loss and fever RESPIRATORY: No cough, wheezing or shortness of breath CARDIOVASCULAR: Negative for chest pain, leg swelling and palpitations PAST MEDICAL HISTORY: Patient Active Problem List Diagnosis Date Noted Kidney stones 09/10/2019 Severe obesity (BMI 35.0-39.9) with comorbidity (CMS/HCC) 04/11/2019 Allergic rhinitis 06/29/2017 Essential hypertension 06/29/2017 Mild persistent asthma 06/29/2017 Osteoarthritis of right knee 06/29/2017 Vitamin D deficiency 06/29/2017 SOCIAL HISTORY: Social History Tobacco Use Smoking status: Never Smokeless tobacco: Never Substance Use Topics Alcohol use: Yes FAMILY HISTORY: Family Status Relation Name Status Mother Alive Father Sister Alive Brother Sister Brother Alive Neg Hx (Not Specified) No partnership data on file Family History Problem Relation Name Age of Onset Dementia Mother Diabetes Father Diabetes Sister ? type 1 Lymphoma Brother Alcohol abuse Sister Alcohol abuse Brother Breast cancer Neg Hx Colon polyps Neg Hx Colon cancer Neg Hx Ovarian cancer Neg Hx ACTIVE MEDICATIONS: Outpatient Medications Marked as Taking for the 03/26/24 encounter (Office Visit) with Landon Mullen MD Medication Sig Dispense Refill Arnuity Ellipta 100 mcg/actuation blister with device inhaler Inhale 1 puff by mouth 1 (one) time each day. 3 each 1 atorvastatin (LIPITOR) 10 mg tablet TAKE 1 TABLET AT BEDTIME cetirizine (ZyrTEC) 10 mg tablet Take 10 mg by mouth daily. cholecalciferol (VITAMIN D-3) 50 mcg (2,000 unit) tablet Take by mouth. fluticasone HFA (FLOVENT HFA) 110 mcg/actuation inhaler Inhale 1 Puff into the lungs 2 times daily. fluticasone propionate (FLONASE) 50 mcg/actuation nasal spray USE 2 SPRAYS IN EACH NOSTRIL DAILY 48g 0 glucosamine/chondroitin/C/Nick (GLUCOSAMINE 1500 COMPLEX ORAL) Take 1,500 mg by mouth daily. hydroCHLOROthiazide (HYDRODIURIL) 25 mg tablet TAKE 1 TABLET DAILY losartan (COZAAR) 25 mg tablet TAKE 1 TABLET DAILY 90 tablet 0 mv-mn/folic ac/calcium/vit K1 (WOMEN'S 50 PLUS MULTIVITAMIN ORAL) Take by mouth. pyridoxine (B-6) 100 mg tablet Take 1 Tablet by mouth daily. ALLERGIES: Other PHYSICAL EXAM: Blood pressure 128/70, pulse 79, temperature 36.6 ??C (97.9 ??F), temperature source Temporal, resp. rate 16, height 1.702 m (67 ), weight 100 kg (220 lb 8 oz), SpO2 96%. Body mass index is 34.54 kg/m??. Plan is deferred until next visit APPEARANCE: Alert and in no acute distress EYES: PERRLA, conjunctiva and sclera normal HEART: RRR with normal S1 and S2, no murmurs, no gallops, no JVD appreciated LUNG: clear to auscultation bilaterally EXTREMITIES: Extremities warm and well perfused without clubbing, cyanosis, or edema LABS: none IMPRESSION: 1. Encounter for subsequent annual wellness visit (AWV) in Medicare patient 2. Essential hypertension 3. Hypercholesterolemia 4. Encounter for long-term (current) use of medications 5. Mild persistent asthma without complication 6. Obesity (BMI 30-39.9) PLAN: Pt with htn well controlled pt will continue current regimen of losartan and hctz. Will check bmp to assess renal function and lytes pt with high cholesterol on a statin will check lipid profile and lft's last ldl < 100 pt to continue current statin therapy Pt with asthma well controlled pt to continue arnuity pt notes only needing her rescue inhaler whenshe is having uri symptoms Pt to f/u in 6 months No orders of the defined types were placed in this encounter. ADDITIONAL ORDERS: None Landon Mullen MD on 03/26/2024 at 7:26 AM EST documented in this encounter Plan of Treatment Upcoming Encounters Date Type Department Care Team (Late st Contact Info) Description 10/05/2024 3:30 PM EDT Office Visit Adult Medicine [address] [phone] Landon Mullen MD [address] [place] [address] documented as of this encounter Results * (ABNORMAL) Comprehensive metabolic panel (03/26/2024 9:00 AM EST) Sodium 141 133 - 145 mmol/L LAB CHEMISTRY METHOD 03/26/2024 2:57 PM [facility] Potassium 3.8 3.5 - 5.5 mmol/L LAB CHEMISTRY METHOD 03/26/2024 2:57 PM [facility] Chloride 103 96 - 110 mmol/L LAB CHEMISTRY METHOD 03/26/2024 2:57 PM [facility] CO2 34(H) 21 - 32 mmol/L LAB CHEMISTRY METHOD 03/26/2024 2:57 PM [facility] Anion Gap 4 3 - 11 LAB CHEMISTRY METHOD 03/26/2024 2:57 PM [facility] Glucose 105(H) 70 - 100 mg/dL LAB CHEMISTRY METHOD 03/26/2024 2:57 PM [facility] BUN 25 5 - 25 mg/dL LAB CHEMISTRY METHOD 03/26/2024 2:57 PM [facility] Creatinine 0.77 0.50 - 1.10 mg/dL LAB CHEMISTRY METHOD 03/26/2024 2:57 PM [facility] eGFR 83 >=60 mL/min/1. 73m2 LAB CHEMISTRY METHOD 03/26/2024 2:57 PM [facility] Comment:Calculation based on the??Chronic Kidney Disease Epidemiology Collaboration (CKD-EPI) equation refit??without adjustment for race. BUN/Creatinine Ratio 32.5 LAB CHEMISTRY METHOD 03/26/2024 2:57 PM [facility] Calcium 9.5 8.5 - 10.5 mg/dL LAB CHEMISTRY METHOD 03/26/2024 2:57 PM [facility] AST (SGOT) 21 10 - 42 unit/L LAB CHEMISTRY METHOD 03/26/2024 2:57 PM [facility] ALT (SGPT) 37 10 - 60 unit/L LAB CHEMISTRY METHOD 03/26/2024 2:57 PM [facility] Alkaline Phosphatase 73 42 - 121 unit/L LAB CHEMISTRY METHOD 03/26/2024 2:57 PM [facility] Total Protein 6.7 6.0 - 8.0 g/dL LAB CHEMISTRY METHOD 03/26/2024 2:57 PM [facility] Albumin 3.5 3.2 - 5.0 g/dL LAB CHEMISTRY METHOD 03/26/2024 2:57 PM [facility] Total Bilirubin 0.6 0.0 - 1.4 mg/dL LAB CHEMISTRY METHOD 03/26/2024 2:57 PM [facility] Blood Venous blood specimen / Unknown Venipuncture / Unknown 03/26/2024 9:00 AM EST 03/26/2024 9:00 AM EST us Landon Mullen MD LAB BLOOD ORDERABLES Final Resu lt [facility] [address] [place] [address], [place] [phone] * Lipid panel with reflex to direct LDL (03/26/2024 9:00 AM EST) Cholesterol 157 0 - 200 mg/dL LAB CHEMISTRY METHOD 03/26/2024 3:00 PM [facility] Triglycerides 82 0 - 150 mg/dL LAB CHEMISTRY METHOD 03/26/2024 3:00 PM [facility] HDL 61 >=40 mg/dL LAB CHEMISTRY METHOD 03/26/2024 3:00 PM [facility] LDL Calculated 80 0 - 100 mg/dL LAB CHEMISTRY METHOD 03/26/2024 3:00 PM [facility] VLDL Cholesterol Herve 16.4 mg/dL LAB CHEMISTRY METHOD 03/26/2024 3:00 PM [facility] Non HDL Chol. (LDL+VLDL) 96 <145 mg/dL LAB CHEMISTRY METHOD 03/26/2024 3:00 PM [facility] Chol/HDL Ratio 2.6 0.0 - 4.4 LAB CHEMISTRY METHOD 03/26/2024 3:00 PM [facility] Blood Venous blood specimen / Unknown Venipuncture / Unknown 03/26/2024 9:00 AM EST 03/26/2024 9:00 AM EST us Landon Mullen MD LAB BLOOD ORDERABLES Final Resu lt Performing Organization Address City/[facility]/ZIP Co de Phone Number [facility] [address] [place] [address], [place] [phone] documented in this encounter Visit Diagnoses Diagnosis Encounter for subsequent annual wellness visit (AWV) in Medicare patient- Primary Essential hypertension Unspecified essential hypertension Hypercholesterolemia Pure hypercholesterolemia Encounter for long-term (current) use of medications Encounter for long-term (current) use of other medications Mild persistent asthma without complication Obesity (BMI 30-39.9) documented in this encounter Orders Code Status Count Last Ordered Date First Orde red Date FULL CODE CONFIRMED 1 03/26/2024 documented in this encounter Additional Health Concerns Assessment Noted Time PHQ-9 Depression Total Score: 0 03/20/19 25 9:18 AM EST documented as of this encounter Care Teams Email Engineer Relationship Specialty Start Date End Date Landon Mullen MD [address] [place] [id number] PCP - General Internal Medicine 07/15/20 documented as of this encounter
--- OUTSIDE RECORDS SUMMARY | 2024-04-17 12:42 | XMS_ITS | Continuity of Care Document ---
Author Organization [facility] Address [address] [place] [address] Phone Care Team Providers Care Extrusion Line Operator Name Role Phone Fernando May MD Unavailable Unavailable Allergies, Adverse Reactions, Alerts Substance Reaction Status Criticality pollen extracts Active No Informati on TAPE, OCCLUSIVE ADHESIVE Active No Information Medications Medication Instructions Dosage Effective Dates (start - stop) Status Comments LOSARTAN POTASSIUM (unknown strength) take 1 tablet by oral route every day Not Available - Active VALACYCLOVIR (unknown strength) take 1 tablet by oral route every 12 hours Not Available - Active PREDNISOLONE (unknown strength) take 5 milliliter by oral route every day with food Not Available - Active POLYMYXIN B SULFATE (unknown strength) Not Available - Active Procedures Procedure Date Comprehensive Eye Exam - Est Patient Oct Fundus Photos Visual Field Exam (Dicon/Woods) 23 High Sev Office Visit - Est Patient Visual Field Exam (Dicon/Woods) 21 Retinal Scanning OCT Mod Sev Office Visit - Est Patient Visual Field Exam (Dicon/Woods) 19 Not A Valid Code, In House Only 019 Electroretinography, Full Field Not A Valid Code, In House Only 019 Fluorescein Angiography Tech Component A Fundus Photos Professional Component May Fluorescein Angiography Prof Component A Fundus Photos Technical Component Mod Sev Office Visit - New Patient Retinal Scanning OCT Comprehensive Eye Exam - New Patient Sep Advance Directives Directive Yes / No Effective Date File Name No Information Encounters Encounter Description Practice Location Reason(s) For Visit Diagnoses Date Provider Providers Copied on Encounter [facility], [address] [place] [address], [id number] , tel: [phone] [facility] No Information 3 [place] Fernando. [address] [place] [address], [id number], . [phone] [facility], [address] [place] [address], [id number] , tel: [phone] [place] Pigmentary retinal dystrophy 3 [place] Fernando. [address] [place] [address], [id number], . tel:[phone] Referring Provider: Christopher Hughes, [address] [place] [address], [place], [id number]. tel:[phone] High [place]v Office Visit - Est Patient [facility], [address] [place] [address], [id number] , tel: [phone] [place] Pigmentary retinal dystrophy 1 [place] Fernando. [address] [place] [address], [id number], . tel:[phone] Referring Provider: Fernando Ríos, [address] [place] [address], [id number] . tel:[phone] [facility] [place] Office Visit - Est Patient [facility], [address] [place] [address], [id number] , tel: [phone] [place] Pigmentary retinal dystrophy 0-201 9 [place] Fernando. [address] [place] [address], [id number], [place]. tel:[phone] Referring Provider: Jignesh Bryan, [address] [place], [id number] . tel:[phone] [facility], [address] [place] [address], [id number] , tel: [phone] [place] Pigmentary retinal dystrophy No Information [facility], [address] [place] [address], [id number] , tel: [phone] [place] Pigmentary retinal dystrophy 9 No Information Referring Provider: Jignesh Bryan, [address] [place], [id number] . tel:[phone] Mod Sev Office Visit - New Patient [facility], [address] [place] [address], [id number] , tel: [phone] [facility] Pigmentary retinal dystrophyAge-relat ed nuclear cataract, bilateralKeratocon junct sicca, not specified as Sjogren's, bilateral No Information Referring Provider: José Miguel Cruz, [address] [place], [id number] . tel:[phone] [facility], [address] [place] [address], [id number] , tel: [phone] [place] Corneal opacity, unspecified (Scarring)Nuclear Sclerosis CataractNuclear Sclerosis CataractUlcer, MarginalCorneal opacity, unspecified (Scarring) 2 [place] Cantu. [address] [place] [address], [id number], . tel:[phone] Family History Family Member Type Diagnosis Age At Onset Sister Problem (finding) Macular Degeneration Sister Problem (finding) Retinitis Pigmentosa Sister Problem Cerebral Palsy Multiple Problem (finding) blindness Father Problem (finding) Cancer Payers Payer name Insurance type Covered alliance party ID Authorerma amato(s) [employer] MARIA L FERNANDEZ [id number] Social History Type Description Quantity Date Captured Comments Sex Female Smoking Status No Information Chief Complaint And Reason For Visit No Information Reason For Referral Reason For Referral No Information Plan Of Treatment Date Type Action Status Future Order: Radiology Order Go ldmann (Goldmann), Ordered on: Ordered Future Order: Radiology Order ERG (ERG), Ordered on: Ordered Future Order: Radiology Order Fu ndus Photo (Fundus), Ordered on: Ordered Future Order: Radiology Order FA (FA), Or dered on: Ordered Future Order: Radiology Order OCT (OCT), Ordered on: Ordered History Of Present Illness Encounter Date Complaint History Of Prese nt Illness No Information Functional Status Date Functional Assessmen t No Information Instructions Date Instruction Additional Infor kingsley 1. 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 [employer] genetic testing found a single plausible disease causing allele in RDH12, but no second allele. This does not look like AB - 1. We discussed the above2. Genetic testing of Annelise's sister if she agrees3. See me in 2 years Related to Pigmentary retinal dystrophy - Return in 2 years for a GENETI CS exam Related to Pigmentary retinal dystrophy 1. Pigmentary retina l dystrophy Annelise's slightly reduced visual acuity (20/25) in each eye, combined with her fundus appearance which shows a bilateral, symmetric, macular and peripheral yellow/faint black reticular pattern, combined with her si - 1. We discussed the option of more widescale genetic testing through [facility]. Annelise would like to proceed. 2. Trialed different tints and tones today to see if there would possibly be one that works better for Annelise. 450 color filter is what she liked best. She will try to get some glasses with her local child specialist with this same tint.3. Return in 2 years for a GENETICS exam with Dr. May. Related to Pigmentary retinal dystrophy 1. Pigmentary retina l dystrophyMs. Garcia is an extremely well-educated person who was first told at age 42 that she had flecks in her retina. She was diagnosed with fundus flavimaculatus at that age. Since then, she has noticed her vision in dim - 1. 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 Retinitis pigmentosa is a reasonable clinical diagnosis. This could be due to mutations in the ABCA4 gene based on the history and fundus appearance.2. We discussed the diagnosis, prognosis, and current state of research in detail today.3. We discussed the option of genetic testing. Annelise would like to pursue this option. I recommend the autosomal recessive retinitis pigmentosa testing at the [facility]. We discussed that the cost to her is $833 and the test can take several months to come back. She'd like to proceed, and wonders if they can bill an HSA.4. I would like to see Annelise again in my clinic in two years. - Follow up with Dr. 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 F/U with Dr Mejia and Dr May. 1. 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 Nuclear cataract, bilateral (H25.13)3. Keratoconjunctivitis sicca, not specified as Sj???gren's, bilateral (H16.223) - 1. Discussed diagnosis. Schedule FA OU after reviewing results will determine options of other testing. Likely will order FF ERG if FA is as expected=--Genetic testing disc--may NOT be covered by Insurance2. Discussed cataract- no treatment needed at this time.3. Use artificial tears in both eyes at least three times per day. Related to Pigmentary retinal dystrophy - Return in for FA a nd Fundus Photos in both eyes for testing only at the [facility] office 1.Ulcer,Marginal OS) : likely staph marginal keratitis3. Nuclear Sclerosis () Discussed a cataract is present and is a normal age related finding. It explains why the patient's vision might not be as clear as it used to be and why they may be start - Lid Hygiene with instructions provided, warm compresses. Supplemental artificial tears as needed. Start Tobradex TID OS. Patient to follow-up with Dr. Paniagua 1 week, sooner prn. Patient advised that if eye gets worse she needs to stop the steriod and call immediately. Related to Corneal opacity, unspecified (Scarring) Assessments Type Assessment Date No Information Patient Care Teams Name Effective Dates (start - stop) Status Members No Information
== END 2024-04-17 10:26 | disposition home or self-care (01) ==
LOC: HO.MAMMO 10:25
PROVIDERS: PCP Internal Medicine; Visit Provider Internal Medicine
DX: Z12.31 Encounter for screening mammogram for malignant neoplasm of breast (principal)
CPT/HCPCS: 77063; 77067

== ENCOUNTER → 2024-04-17 10:45 | Outpatient (BNV) | payer MEDICARE, SELFPAY | PROVIDERS: PCP Internal Medicine; Visit Provider Internal Medicine | DX: Z12.31 Encounter for screening mammogram for malignant neoplasm of breast (principal) | CPT/HCPCS: 77063; 77067 ==

== ENCOUNTER 2024-05-09 09:25 | Outpatient (REF) | payer MEDICARE, SELFPAY ==
--- NOTE | ~2024-05-09 | US_ITS ---
EXAMINATION: US KIDNEY BILATERAL HISTORY: N20.0 - Calculus of kidney TECHNIQUE: Real-time grayscale ultrasound imaging of the kidneys was performed and images were reviewed. COMPARISON: Comparison is made with the prior examination dated 10/09/2021. FINDINGS: Right kidney: The right kidney measures 10.6 x 3.9 x 6.1 cm. Renal parenchymal echotexture and thickness are normal. There are no masses. There is no hydronephrosis or renal calculi. Left Kidney: The left kidney measures 11.2 x 4.6 x 5.4 cm. Renal parenchymal echotexture and thickness are normal. There are no masses. Multiple nonobstructing calculi are identified including a 3 x 4 x 3 mm calculus in the interpolar region, and lower pole calculi measuring 2 x 3 x 3 mm and 3 x 2 x 3 mm. There is no hydronephrosis. US/US renal BI IMPRESSION: Left nephrolithiasis as described, without evidence of ureteral obstruction. Electronically signed by: Akbar Medrano MD 05/09/2024 10:42 AM EDT
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
--- OUTSIDE RECORDS SUMMARY | 2024-05-09 10:32 | XMS_ITS ---
Author Organization [facility] Address [address] [place] [address] Care Team Providers Care Bar And Filler Assembler Name Role Phone Kenn Mullen MD Primary Care Provider Ernesto Gonzalez [phone] REASON FOR VISIT BUY Comfort Plus w/Met Pad B / w 8-8.5 Encounters Encounter Location Date Provider Diagnosis [address] [address] 10/20/2023 Ernesto Bethea Plan Of Treatment No Information Progress Notes * Kendal LEO ADOB: [birth year] (73 yo F)Acc No.[id number]:10/20/2023 Patient:?RadhaKendal albarran :1950???Age:73 Y???Sex:Female Address:[address] [place] [address] * true * Date:? Generated for Printi mei/Poli/eTransmitting on:?05/09/2024 10:32 AM EDT
--- OUTSIDE RECORDS SUMMARY | 2024-05-09 10:32 | XMS_ITS | Continuity of Care Document ---
Author Organization [facility] Address [address] [place] [address] Phone Care Team Providers Care Child Welfare Manager Name Role Phone Fernando May MD Unavailable [...] Diagnoses Date Provider Providers Copied on Encounter [facility], [address] [place] [address], [id number] , tel: [phone] [facility] No Information 3 [place] Fernando. [address] [place] [address], [id number], . [phone] [facility], [address] [place] [address], [id number] , tel: [phone] [place] Pigmentary retinal dystrophy 3 [place] Fernando. [address] [place] [address], [id number], . tel:[phone] Referring Provider: Christopher Hughes, [address] [place] [address], [place], [id number]. tel:[phone] High Sev Office Visit - Est Patient [facility], [address] [place] [address], [id number] , tel: [phone] [place] Pigmentary retinal dystrophy 1 [place] Efrnando. [address] [place] [address], [id number], . tel:[phone] Referring Provider: Fernando Ríos, [address] [place] [address], [id number] . tel:[phone] [facility] [place] [facility] [place] - Est Patient [facility], [address] [place] [address], [id number] , tel: [phone] [place] Pigmentary retinal dystrophy 0-201 9 [place] Fernando. [address] [place] [address], [id number], [place]. tel:[phone] Referring Provider: Jignesh Bryan, [address] [place], [address] . tel:[phone] [facility], [address] [place] [address], [id number] , tel: [phone] [place] Pigmentary retinal dystrophy No Information [facility], [address] [place] [address], [id number] , tel: [phone] [place] Pigmentary retinal dystrophy 9 No Information Referring Provider: Jignesh Bryan, [address] [place], [id number] . tel:[phone] Mod Sev Office Visit - New Patient [facility], [address] [place] [address], [id number] , tel: [phone] [facility] Pigmentary retinal dystrophyAge-relat ed nuclear cataract, bilateralKeratocon junct sicca, not specified as Sjogren's, bilateral No Information Referring Provider: José Miguel Cruz, [address] [place], [id number] . tel:[phone] [facility], [address] [place] [address], [id number] , tel: [phone] Central Corneal opacity, unspecified (Scarring)Nuclear Sclerosis CataractNuclear Sclerosis CataractUlcer, MarginalCorneal opacity, unspecified (Scarring) 2 [place] Cantu. [address] [place] [address], [id number], . tel:[phone] Family History Family Member Type Diagnosis Age At Onset Sister Problem (finding) Macular Degeneration Sister Problem (finding) Retinitis Pigmentosa Sister Problem Cerebral Palsy Multiple Problem (finding) blindness Father Problem (finding) Cancer Payers Payer name Insurance type Covered republican ID Authorerma amato(s) [employer] MARIA L FERNANDEZ [id number] Social History Type Description Quantity Date Captured [...] which I continue to suspect is genetic. [employer] genetic testing found a single plausible disease [...] option of more widescale genetic testing through [facility]. Annelise would like to proceed. 2. Trialed different tints and tones today to see if there would possibly be one that works better for Annelise. 450 color filter is what she liked best. She will try to get some glasses with her local cook jelly with this same tint.3. Return in 2 [...] autosomal recessive retinitis pigmentosa testing at the [facility]. We discussed that the cost to her [...] for testing only at the [facility] office 1.Ulcer,Marginal OS) : likely staph marginal [...]
--- OUTSIDE RECORDS SUMMARY | 2024-05-09 10:32 | XMS_ITS | Clinical Summary ---
Author Organization [facility] [address] [place] [address] [place] [phone] Phone Care Team Providers Care Abnormal Psychology Teacher Name Role Phone Landon Mullen MD Primary Care Provider [phone] Allergies Active Allergy Reactions Criticality Noted Date [...] 8:00 AM EST Office Visit Adult Medicine [address] [phone] Landon Mullen MD Encounter for subsequent annual [...] for your loved ones. For example, children's ministry director or elderly care for an older adult? [...] 3:30 PM EDT Office Visit Adult Medicine [address] [phone] Landon Mullen MD [address] [place] [phone] Health Maintenance Due Date Last Done Comments [...] LAB CHEMISTRY METHOD 03/26/2024 3:00 PM EST [facility] Triglycerides 82 0 - 150 mg/dL LAB CHEMISTRY METHOD 03/26/2024 3:00 PM EST [facility] HDL 61 >=40 mg/dL LAB CHEMISTRY METHOD 03/26/2024 3:00 PM EST [facility] LDL Calculated 80 0 - 100 mg/dL LAB CHEMISTRY METHOD 03/26/2024 3:00 PM [facility] VLDL Cholesterol Herve 16.4 mg/dL LAB CHEMISTRY METHOD 03/26/2024 3:00 PM [facility] Non HDL Chol. (LDL+VLDL) 96 <145 mg/dL LAB CHEMISTRY METHOD 03/26/2024 3:00 PM [facility] Chol/HDL Ratio 2.6 0.0 - 4.4 LAB CHEMISTRY METHOD 03/26/2024 3:00 PM [facility] Blood Venous blood specimen / Unknown Venipuncture / Unknown 03/26/2024 9:00 AM EST 03/26/2024 9:00 AM EST us Landon Mullen MD LAB BLOOD ORDERABLES Final Resu lt [facility] [address] [place] [address], [place] [phone] * (ABNORMAL) Comprehensive metabolic panel (03/26/2024 9:00 AM EST) Sodium 141 133 - 145 mmol/L LAB CHEMISTRY METHOD 03/26/2024 2:57 PM [facility] Potassium 3.8 3.5 - 5.5 mmol/L LAB CHEMISTRY METHOD 03/26/2024 2:57 PM [facility] Chloride 103 96 - 110 mmol/L LAB CHEMISTRY METHOD 03/26/2024 2:57 PM [facility] CO2 34(H) 21 - 32 mmol/L LAB CHEMISTRY METHOD 03/26/2024 2:57 PM [facility] Anion Gap 4 3 - 11 LAB CHEMISTRY METHOD 03/26/2024 2:57 PM [facility] Glucose 105(H) 70 - 100 mg/dL LAB CHEMISTRY METHOD 03/26/2024 2:57 PM [facility] BUN 25 5 - 25 mg/dL LAB CHEMISTRY METHOD 03/26/2024 2:57 PM [facility] Creatinine 0.77 0.50 - 1.10 mg/dL LAB CHEMISTRY METHOD 03/26/2024 2:57 PM [facility] eGFR 83 >=60 mL/min/1. 73m2 LAB CHEMISTRY METHOD 03/26/2024 2:57 PM [facility] Comment:Calculation based on the??Chronic Kidney Disease Epidemiology Collaboration (CKD-EPI) equation refit??without adjustment for race. BUN/Creatinine Ratio 32.5 LAB CHEMISTRY METHOD 03/26/2024 2:57 PM [facility] Calcium 9.5 8.5 - 10.5 mg/dL LAB CHEMISTRY METHOD 03/26/2024 2:57 PM [facility] AST (SGOT) 21 10 - 42 unit/L LAB CHEMISTRY METHOD 03/26/2024 2:57 PM [facility] ALT (SGPT) 37 10 - 60 unit/L LAB CHEMISTRY METHOD 03/26/2024 2:57 PM [facility] Alkaline Phosphatase 73 42 - 121 unit/L LAB CHEMISTRY METHOD 03/26/2024 2:57 PM [facility] Total Protein 6.7 6.0 - 8.0 g/dL LAB CHEMISTRY METHOD 03/26/2024 2:57 PM [facility] Albumin 3.5 3.2 - 5.0 g/dL LAB CHEMISTRY METHOD 03/26/2024 2:57 PM [facility] Total Bilirubin 0.6 0.0 - 1.4 mg/dL LAB CHEMISTRY METHOD 03/26/2024 2:57 PM [facility] Blood Venous blood specimen / Unknown Venipuncture / Unknown 03/26/2024 9:00 AM EST 03/26/2024 9:00 AM EST us Landon Mullen MD LAB BLOOD ORDERABLES Final Resu lt [facility] [address] [place] [address], * Hm Mammography (04/12/2023) Mammogram abstract [facility] /sr Anatomical Region Laterality Modality Other us Historical Provider HEALTH MAINTENANCE Final Result * Falls Risk Assessment (03/22/2023) Pathologist [facility] Falls Risk Assessment abstracted us Historical Provider [...] (World Health Organization Fracture Risk Assessment) The [facility] Department of Internal Medicine recommends using [...] alternative screening schedule based on chandra Rand., [facility] March 04, 2011 for patients with osteopenia [...] (World Health Organization Fracture Risk Assessment) The [facility] Department of Internal Medicine recommendsusing National [...] PROCEDURES Final Res ult * Colonoscopy (08/18/2018) [facility] Colonoscopy no interpretation , abstracted Anatomical Region Laterality Modality Other Historical Provider HEALTH MAINTENANCE Final Result * Hepatitis C Screening (04/17/2018) [facility] Hepatitis C Screening abstracted Historical Provider HEALTH MAINTENANCE Final Result from Last 3 Months or Most Recently Relevant to Health Maintenance Insurance MEDICARE [facility] Advance Directives * Full Code - Confirmed (Latest Code Status on File) Date Activated Date Inactivated Comments 03/26/2024 8:12 AM This code stat us was ascertained in the following way: Code status discussion: discussion with patient To update the patient's code status, place a code status order. Do not modify or discontinue any currently active code status orders. Care Teams Abnormal Psychology Teacher Relationship Specialty Start Date End Date Landon Mullen MD [address] [place] [id number] PCP - General Internal Medicine 07/15/20
--- OUTSIDE RECORDS SUMMARY | 2024-05-09 10:32 | XMS_ITS ---
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 . . 2-3x/week for 3-4 weeks 10/20/2023 Active Night Splint AFO - L1930 as directed 10/20/2023 Active ZyrTEC Allergy Orally Once a day Active Vitamin D3 50 MCG (1999 UT) as directed Orally Once a day Active Losartan Potassium 25 MG 1 tablet Orally Once a day for 30 day(s) Active hydroCHLOROthiazide 25 MG 1 tablet in th e morning Orally Once a day Active Glucosamine as directed Orally Active Fluticasone Propionate 50 MCG/ACT 1 spray in each nostril Nasally Once a day for 30 day(s) Active Atorvastatin Calcium 10 MG Oral for 90 Active Albuterol Sulfate HFA Active Arnuity Ellipta 100 mcg Acti ve Social History Tobacco Use: Social History Observation [...] Status Risk Notes Problem Plantar fascial fibromatosis (47401029) Plantar fascial fibromatosis (M72.2) Active confirmed Vital Signs Height 5ft 7in in 11/17/2023 Weight 219 lbs 11/17/2023 BMI 34.3 kg/m2 11/17/2023 Encounters Encounter Location Date Provider Diagnosis [facility] [address] [phone] 11/17/2023 Ernesto Bethea Plantar fascial fibromatosis M72.2 ; Pain in left foot M79.672 ; Calcaneal spur, left foot M77.32 and Tinea unguium B35.1 Assessments Encounter Date Diagnosis (ICD Code) Assessment Notes Treatment Notes Treatment Clinical Notes Section Notes 11/17/2023 Plantar fascial fibromatosis (ICD-10 - M72.2) 11/17/2023 Pain in left foot (ICD-10 - M79.672) 11/17/2023 Calcaneal spur, left foot (ICD-10 - M77.32) 11/17/2023 Tinea unguium (ICD-10 - B35.1) Plan Of Treatment Next Appt Details Follow Up: prn, Reason: Progress Notes * Kendal LEO ADOB: (73 yo F)Acc No.[id number]:11/17/2023 Progress Notes Patient:?RadhaKendal albarran Eugenie Provider:?Ernesto Bethea DPM :1950???Age:73 Y???Sex:Female D ate:11/17/2023 Address:[address] [place], [place] [id number] Pcp:Kenn Mullen MD Subjective: * Chief Complaints: * ???Pcp- 09/06 * HPI: ???Heel pain:?Nature:?bruising, burning, sharp pain.?Location:?plantar, Arch, LEFT.?Onset/Cause:?unknown, denies trauma.?Course:?improved.?Aggravated:?walking first thing in the morning/after rest.?Treatments:?change in shoes, orthoses, massage.? * ROS:?General/Constitutional:?Nausea?denies.?Vomiting?denies.?Hunger Thirst?denies.?Loss appetite?denies.?Chills?denies.?Fatigue?denies.?Fever?denies.?Night Sweats?denies.?Unexplained weight loss?denies.?Unexplained weight gain?denies.?HEENTM:?Dentures?denies.?Dizziness?denies.?Glasses/contacts?admits.?Retinopathy?de nies.?Blurred/double vision?denies.?TMJ?denies.?Discharge/drainage?denies.?Implants?denies.?Sore throat?denies.?Dental implants?denies.?Hard of hearing ?denies.?Difficulty chewing/swallowing/speaking?denies.?Nose bleeds?denies.?Sore mouth?denies.?Respiratory:?On Oxygen?denies.?Pneumonia/pleurisy?denies.?Bronchitis?denies.?Emphysema?denies.?C oughing?denies.?Cough blood?denies.?Shortness of breath?denies.?Wheezing?denies.?Cardiovascular:?Pacemaker?denies.?MVP?denies.?WPW?denies.?CHF?denies.?Heart attack?denies.?Septal defect?denies.?Rapid beat?denies.?Chest pain ?denies.?Atrial Fib.?denies.?Murmur/Palpitations?denies.?Gastrointestinal:?Hemorrhoids?denies.?Stomach/Abdominal pain?denies.?Dark blood stool?denies.?Irritable bowel ?denies.?Constipation?denies.?Diarrhea?denies.?Hematology:?Swelling?denies.?Clots?denies.?Varicose Veins?denies.?Bruising?denies.?Bleeding problem?denies.?Genitourinary:?Blood urine?denies.?Frequent/Painfu/urination/bladder control?denies.?Kidney stones?denies.?Infection (UTI)?denies.?Nephropathy?denies.?sex trans dis (STD)?denies.?Prostate?denies.?Musculoskeletal:?Hammertoes?denies.?Bunions?admits.?Back Pain?denies.?Muscle Cramps/ Resting?denies.?Muscle cramps / walking?denies.?Generalized aches and pains?denies.?Weakness?denies.?Integ.:?Madrid?denies.?Scars?denies.?Corns/calluses?admits.?Ingrown nails?denies.?Painful nails?denies.?Open Sores?denies.?Rashes?denies.?Neurologic:?Difficulty sleeping?denies.?Brain disorder?denies.?Numbness?denies.?Balance trouble?denies.?Confusion?denies.?Fainting/blackouts?denies.?Tingling?denies.?Tr emors?denies.? * Medical History:? 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 * Social History:?Tobacco Use:?Tobacco Use/Smoking?Are you a:?nonsmoker ?Additional Findings: Tobacco Non-User?Current non-smoker ?Tobacco use other than smoking?Are you an other tobacco user??No ???Drugs/Alcohol:?Drugs?Have you used drugs other than those for medical reasons in the past 12 months??No ?Alcohol Screen?Did you have a drink containing alcohol in the past year??Yes ?How often did you have a drink containing alcohol in the past year??2 to 4 times a month (2 points) ?Points?2 ?Interpretation?Negative ???Miscellaneous:?Caffeine: yes, frequency:, 1 cups per day. ?Children: yes, 2. ?Exercise: yes, active job , walking. ?Marital status: . ?Occupation: [employer]. * Medications:?TakingArnuity E llipta , Notes: 100 mcgAlbuterol Sulfate HFA Atorvastatin Calcium 10 MG Tablet Oral Fluticasone Propionate 50 MCG/ACT Suspension 1 spray in each nostril Nasally Once a dayGlucosamine as directed Orally hydroCHLOROthiazide 25 MG Tablet 1 tablet in the morning Orally Once a dayLosartan Potassium 25 MG Tablet 1 tablet Orally Once a dayVitamin D3 50 MCG (1999 UT) Capsule as directed Orally Once a dayZyrTEC Allergy Orally Once a dayNight Splint AFO - L1930 as directed Physical Therapy . . . . 2-3x/weekVoltaren 1 % Gel as directed Externally Taking Arnuity Ellipta , Notes: 100 mcgTaking Albuterol Sulfate HFA Taking Atorvastatin Calcium 10 MG Tablet Oral Taking Fluticasone Propionate 50 MCG/ACT Suspension 1 spray in each nostril Nasally Once a dayTaking Glucosamine as directed Orally Taking hydroCHLOROthiazide 25 MG Tablet 1 tablet in the morning Orally Once a dayTaking Losartan Potassium 25 MG Tablet 1 tablet Orally Once a dayTaking Vitamin D3 50 MCG (1999 UT) Capsule as directed Orally Once a dayTaking ZyrTEC Allergy Orally Once a dayTaking Night Splint AFO - L1930 as directed Taking Physical Therapy . . . . 2-3x/weekTaking Voltaren 1 % Gel as directed Externally Not-Taking/PRNCalcium 600 MG Tablet as directed Orally Once a dayFlovent HFA 110 MCG/ACT Aerosol 1 puff Inhalation Twice a dayMedication List reviewed and reconciled with the patientNot- Taking/PRN Calcium 600 MG Tablet as directed Orally Once a dayNot-Taking/PRN Flovent HFA 110 MCG/ACT Aerosol 1 puff Inhalation Twice a dayMedication List reviewed and reconciled with the patient * Allergies:?Seasonaleyes[Gian rgies Verified] Objective: * Vitals:?Ht: 5ft 7in, Wt:219, BMI:34.3, Shoe size: 8.5, Ht-cm: 170.18 cm, Wt-k.34 kg. * Examination: ???General Examination: ?GENERAL APPEARANCE:?pleasant, alert, well nourished, well developed, well hydrated, with good attention to hygene/body habitus, and in no acute distress.?ORIENTED:?person,place, and time.?Neurological: ?SENSORY:?Neurological exam reveals intact sensorium, pain sensation normal, vibration sensation intact, pinprick sensation is normal in the lower extremities, pt denies, anesthesia, burning, paresthesia, tingling, B/L.?TINEL'S COMPRESSION:?Negative tarsal tunnel, jaguar pedis, and medial calcaneal nerves, B/L.?BABINSKI REFLEX:?Absent, B/L.?Vascular: ?DP PULSES(B):?2/4, B/L.?PT PULSES(B):?2/4, B/L.?CAPILLARY FILL TIME:?3 secs. per digit, B/L.?TROPHIC CONDITION-TEXTURE/ELASTICITY/TURGOR/HAIR GROWTH(B):?normal, B/L.?TEMPERTURE GRADIENT(C):?warm to cool, proximal to distal, B/L.?EDEMA(C):?no edema.?Dermatologic: ?SKIN FINDINGS:?Skin exam reveals normal texture, elasticity, and tugor. There are no masses. The interspaces are clear.?Heel Pain: ?INSPECTION REVEALS:? Pain on Palpation to Plantar Fascia med. and central bands, intrinsic musc., infra-calcaneal bursa, and med calc tubercle, LEFT foot--midsection--slight.?Orthopedic: ?MUSCLE STRENGTH:?5/5 all groups in a symmetrical fashion B/L.?GAIT ABNORMALITY:?pronated, abducted, B/L.?Nails: ?NAILS are:? Elongated, overgrown, dystrophic, lytic, greater than 3mm thick, discolored and friable with crumbly malodorous subungual debris, with pain on palpation, TA, T3.? Assessment: * Assessment: 1.?Plantar fascial fibromato sis - M72.2 (Primary)?2.?Pain in left foot - M79.672?3.?Calcaneal spur, left foot - M77.32?4.?Tinea unguium - B35.1? Plan: * Treatment: * Procedure Codes:? * Preventive Medicine:? ??Counseling:?Discussion:?-13: Office or other outpatient visit for the evaluation and management of an established patient, which required a medically appropriate history and/or examination and LOW level of DECISION MAKING for: 1 STABLE ACUTE UNCOMPLICATED PROBLEM, 2 OR MORE MINOR PROBLEMS, OR 1 STABLE CHRONIC PROBLEM, THAT POSE(S) A LOW RISK FOR MORBIDITY/MORTALITY. The visit on the day of the encounter encompassed interpreting the data and educating the patient as to the nature of their condition, treatment options available according to their individual PMH, meds, allergies, and overall health/living conditions, as well as any potential risks or complications that may occur from a failure to adhere to, and participate in, the recommended course of therapy. The discussion included a complete verbal, and/or written explanation of the examination results, any x-rays taken, the proposed diagnosis, and outline of the treatment plan. A schedule for future care needs was also explained. The patient verbalized an understanding of the instructions at this time and agreed to be an active participant in their treatment. If the patient should think of any questions or concerns after the visit, I have encouraged the patient to call the office.? * Follow Up:?prn * Images: * Sign off status: Completed true * Provider:?Ernesto Bethea DPM Date:? 024 Generated for Ellen hurley/Poli/eTransmitting on:?05/09/2024 10:32 AM EDT History and Physical Notes * HPI (History of Present Illness) Category Sub-Category Detail Notes Category Not es Heel pain Nature: bruising, burning, sharp carolyn n Location: plantar, Arch, LEFT Onset/Cause: unknown, denies trau ma Aggravated: walking first thing in the morning/after rest Course: improved Treatments: change in shoes, ort hoses, massage Examination Category Sub-Category Detail Notes Category Not es Heel Pain INSPECTION REVEALS: Pain on Palp ation to Plantar Fascia med. and central bands, intrinsic musc., infra-calcaneal bursa, and med calc tubercle, LEFT foot--midsection--slight Neurological SENSORY: Neurological exa m reveals intact sensorium, pain sensation normal, vibration sensation intact, pinprick sensation is normal in the lower extremities, pt denies, anesthesia, burning, paresthesia, tingling, B/L BABINSKI REFLEX: Absent, B/L TINEL'S COMPRESSION: Negative tarsal michelle pushpa, jaguar pedis, and medial calcaneal nerves, B/L Dermatologic SKIN FINDINGS: Skin exam reveal s normal texture, elasticity, and tugor. There are no masses. The interspaces are clear Orthopedic GAIT ABNORMALITY: pronated, abducted, B/L MUSCLE STRENGTH: 5/5 all groups in a symmetrical fashion B/L General Examination GENERAL APPEARANCE: pleasant , alert, well nourished, well developed, well hydrated, with good attention to hygene/body habitus, and in no acute distress ORIENTED: person,place, and ti me Vascular DP PULSES (B): 2/4, B/L PT PULSES (B): 2/4, B/L CAPILLARY FILL TIME: 3 secs. per digit, B/L TEMPERTURE GRADIENT (C): warm to cool, p roximal to distal, B/L TROPHIC CONDITION-TEXTURE/ELASTICITY/TURGOR/HAIR GROWTH (B): normal, B/L EDEMA (C): no edema Nails NAILS are: Elongated, overg rown, dystrophic, lytic, greater than 3mm thick, discolored and friable with crumbly malodorous subungual debris, with pain on palpation, TA, T3
--- OUTSIDE RECORDS SUMMARY | 2024-05-09 10:33 | XMS_ITS | Continuity of Care Document ---
Author Organization [facility] [place] Address [address] [place] [address] Phone Care Team Providers Care Registered Nurse Teacher Name Role Phone Addie Palomares NP Unavailable [...] 80-89 MM HG MED LIST DOCD IN [facility] RVW MEDS BY RX/DR IN [facility] MOST RECENT DIASTOLIC BP < 80 MM HG SYST BP GE 130 - 139MM HG MED LIST DOCD IN [facility] Preven Meds Pt; 65/> Annual Wellness Visit - Subsequent ANNUAL DEPRESSION SCREENING - 15MINS Aug No Charge Visit MOST RECENT DIASTOLIC BP < 80 MM HG MOST RECENT SYSTOLIC BP >= 140 23 Preven Meds Pt; 65/> Annual Wellness Visit - Subsequent MOST RECENT SYSTOLIC BP >= 140 22 Offic/outpt E&m Estab Mod-or 2 22 MOST RECENT SYSTOLIC BP >130 MOST RECENT DIASTOLIC BP < 80 MM HG Annual Wellness Visit - Subsequent Preven Meds Pt; 65/> ANNUAL DEPRESSION SCREENING - 15MINS Apr CYTOPATH, C/V, THIN LAYER Offic/outpt E&m New Mod-or 45 2 ANNUAL DEPRESSION SCREENING - 15MINS [...] Diagnoses Date Provider Providers Copied on Encounter [facility] [place] , [address], [place] , [place], [id number] , [place] tel: [phone] Formerly [facility] No Information 4 Jelani Addie. [address], [place], [address], [place]. tel: [phone] Offic/outpt E&m Estab Mod-hi 2 [facility] [place] , [address], [place] , [place], [id number] , [place] tel: [phone] [facility]ly [facility] Discuss osteoporosis Tx (chief complaint) Essential hypertensionMi xed hyperlipidemia Osteoporosis 4 Modestostephen Addie. [address], [place], [address], [place]. tel: [phone] Referring Provider: Addie Jones, [address], [place], [address]. tel: [phone] Preven Meds Pt; 65/> [facility] [place] , [address], [place] , [place], [id number] , [place] tel: [phone] [facility]ly [facility] wellness (chief complaint)Med icare preventive (chief complaint) Other specified menopausal and perimenopausal disordersAnosm iaEncounter for adult annual physical exam w/o abnormal findingMixed hyperlipidemia Essential hypertensionAl lergic rhinitis, unspecifiedIns omniaMild cognitive impairment, so statedPain in thoracic spine 4 Jelani Addie. [address], [place], [address], [place]. tel: [phone] Referring Provider: Addie Jones, [address], [place], [address]. tel: [phone] [facility] [place] , [address], [place] , [place], [id number] , [place] tel: [phone] [facility] Mass in the lt breastEncntr screen mammogram for malignant neoplasm of breast 4 Jelani Real. [address], [place], [address], [place]. tel: [phone] Referring Provider: Addie Jones, [address], [place], [address]. tel: [phone] No Charge Visit [facility] [place] , [address], [place] , [place], [id number] , [place] tel: [phone] [facility] No Information 3 Jelani Real. [address], [place], [address], [place]. tel: [phone] Referring Provider: Addie Jones, [address], [place], [address]. tel: [phone] Preven Meds Pt; 65/> [facility] [place] , [address], [place] , [place], [id number] , [place] tel: [phone] [facility] Wellness- (chief complaint)Med icare preventive (chief complaint) Encntr for general adult medical exam w/o abnormal findingsEssent ial hypertensionIn somniaMixed hyperlipidemia Hearing lossPersonal history of other Ca of skinTrigger thumb, left thumb 3 Jelani Real. [address], [place], [address], [place]. tel: [phone] Referring Provider: Addie Jones, [address], [place], [address]. tel: [phone] [facility] [place] , [address], [place] , [place], [id number] , [place] tel: [phone] [facility] Mass in the lt breast 3 Jelani Pollocke. [address], [place], [address], [place]. tel: [phone] Offic/outpt E&m Estab Mod-hi 2 [facility] , [address], [place] , [place], [id number] , [place] tel: [phone] [facility] HTN- (chief complaint) Mass in the lt breastEssentia l hypertensionIn somnia 2 Jelani Pollocke. [address], [place], [address], [place]. tel: [phone] Referring Provider: Addie Jones, [address], [place], [address]. tel: [phone] [facility] [place] , [address], [place] , [place], [id number] , [place] tel: [phone] [facility] No Information 2 Jelani Real. [address], [place], [address], [place]. tel: [phone] Preven Meds Pt; 65/> [facility] , [address], [place] , [place], [id number] , [place] tel: [phone] [facility] Wellness (chief complaint)Med icare preventive (chief complaint) Encntr screen mammogram for malignant neoplasm of breastEncntr for general adult medical exam w/o abnormal findingsEssent ial (primary) hypertensionSc reening for cervical cancerMild cognitive impairment, so stated 2 Jelani Georgeilie. [address], [place], [address], [place]. tel: [phone] Referring Provider: Addie Jones, [address], [place], [address]. tel: [phone] Offic/outpt E&m New Mod-hi 45 [facility] [place] , [address], [place] , [place], [id number] , [place] tel: [phone] [facility] Re Establish Care (chief complaint) Essential hypertensionPo stmenopausal atrophic vaginitis 2 Jelani Real. [address], [place], [address], [place]. tel: [phone] Referring Provider: Addie Modestostephen Jones, [address], [place], [address]. tel: [phone] Offic/outpt E&m Estab [facility] [place] , [address], [place] , [place], [id number] , [place] tel: [phone] [facility] HTN f/u (chief complaint) Essential hypertensionIn flamed seborrheic keratosisPain in right shoulder 8 Frandy Saenz. [address], [place], [place], [id number], [place]. tel: [phone] Referring Provider: Dany Jones, [address], [place], [address]. tel: [phone] Offic/outpt E&m Estab [facility] [place] , [address], [place] , [place], [id number] , [place] tel: [phone] [facility] HTN f/u (chief complaint) Essential hypertensionNo n-celiac gluten sensitivity 0 8 Frandy Saenz. [address], [place], [place], [id number], [place]. tel: [phone] Referring Provider: Dany Jones, [address], [place], [address]. tel: [phone] Preven Meds Pt; 40-64 [facility] [place] , [address], [place] , [place], [id number] , [place] tel: [phone] [facility] Wellness Exam (chief complaint)HTN (chief complaint) Encntr for general adult medical exam w/o abnormal findingsEssent ial hypertension 6 Frandy Saenz. [address], [place], [place], [id number], [place]. tel: [phone] Referring Provider: Dany Jones, [address], [place], [address]. tel: [phone] Offic/outpt E&m Estab [facility] [place] , [address], [place] , [place], [id number] , [place] tel: [phone] [facility] HTN (chief complaint) Essential hypertensionVe rtigo 5 Frandy Saenz. [address], [place], [place], [id number], [place]. tel: [phone] Referring Provider: Dany Jones, [address], [place], [address]. tel: [phone] Preven Meds Pt; 40-64 [facility] [place] , [address], [place] , [place], [id number] , [place] tel: [phone] [facility] Wellness (chief complaint) ROUTINE MEDICAL EXAM 5 Frandy Saenz. [address], [place], [place], [id number], [place]. tel: [phone] Referring Provider: Dany Jones, [address], [place], [address]. tel: [phone] [facility] [place] , [address], [place] , [place], [id number] , [place] tel: [phone] [facility] Chest Swelling/mass/ lump 4 Frandy Saenz. [address], [place], [place], [id number], [place]. tel: [phone] Offic/outpt E&m Estab [facility] [place] , [address], [place] , [place], [id number] , [place] tel: [phone] [facility] lump r arm pit (chief complaint) Chest Swelling/mass/ lumpSwelling In Head & NeckFatigue 4 Frandy Saenz. [address], [place], [place], [id number], [place]. tel: [phone] Referring Provider: Dany Jones, [address], [place], [address]. tel: [phone] Offic/outpt E&m Estab [facility] [place] , [address], [place] , [place], [id number] , [place] tel: [phone] [facility] med check (chief complaint) Hypertension, UnspecifiedAnx iety 4 Frandy Saenz. [address], [place], [id number], [place]. tel: [phone] Referring Provider: Dany Jones, [address], [place], [address]. tel: [phone] [facility] [place] , [address], [place] , [place], [id number] , [place] tel: [phone] [facility] labs (chief complaint) No Information 3 Frandy Saenz. [address], [place], [place], [id number], [place]. tel: [phone] Referring Provider: Dany Jones, [address], [place], [address]. tel: [phone] Preven Meds Pt; 40-64 [facility] [place] , [address], [place] , [place], [id number] , [place] tel: [phone] [facility] preventive exam (chief complaint) Routine Medical ExamHypertensi on, UnspecifiedRou marc Medical Exam 3 Frandy Saenz. [address], [place], [id number], [place]. tel: [phone] Referring Provider: Dany Jones, [address], [place], [address]. tel: [phone] Offic/outpt E&m Estab [facility] [place] , [address], [place] , [place], [id number] , [place] tel: [phone] [facility] med check (chief complaint) Hypertension, Unspecified 2 Frandy Saenz. [address], [place], [place], [id number], [place]. tel: [phone] Referring Provider: Dany Jones, [address], [place], [address]. tel: [phone] Preven Meds Pt; [facility] [place] , [address], [place] , [place], [id number] , [place] tel: [phone] [facility] PAP test (chief complaint)hig h blood pressure (chief complaint) Gynecological ExaminationRou marc Medical ExamHypertensi on, UnspecifiedRou marc Medical Exam 2 Frandy Saenz. [address], [place], [place], [id number], [place]. tel: [phone] Referring Provider: Dany Jones, [address], [place], [address]. tel: [phone] Preven Meds Pt; [facility] [place] , [address], [place] , [place], [id number] , [place] tel: [phone] [facility] No Information 7 Frandy Saenz. [address], [place], [place], [id number], [place]. tel: [phone] Referring Provider: Dany Jones, [address], [place], [address]. tel: [phone] [facility] [place] , [address], [place] , [place], [id number] , [place] tel: [phone] [facility] general exam (chief complaint)Fat igue (chief complaint)Hig h blood pressure (chief complaint) Routine Medical ExamHypertensi on NosAllergic Rhinitis Nos 6 Frandy Saenz. [address], [place], [place], [id number], [place]. tel: [phone] Referring Provider: Dany Jones, [address], [place], [address]. tel: [phone] Family History Family Member Type Diagnosis Age [...] Triv administered Source: New Immuniza tion Record [id number] administered Source: New Imm unization Record influenza, high dose seasona l, preservative-free administered Source: Other Provid er SARS-COV-2 (COVID-19) vaccin e, mRNA, spike protein, LNP, preservative free, 30 mcg/0.3mL dose (L2) administered Source: Other Pr ovider SARS-COV-2 (COVID-19) vaccin e, mRNA, spike protein, LNP, preservative free, 30 mcg/0.3mL dose (L2) administered Source: Other Pr ovider SARS-COV-2 (COVID-19) vaccin e, mRNA, spike protein, LNP, preservative free, 30 mcg/0.3mL dose (L2) administered Source: Other Pr ovider Pneumococcal conjugate PCV 13 administere d Source: New Immunization Record Influenza, injectable, split virus, preservative free, 3 years and older Afluria administered Note: MELVIN ; Source: S payam Unspecified Zostavax administered Source: New Imm unization Record Tdap administered Source: New Imm unization Record Payers Payer name Insurance type Covered constitution party ID Authoriza timoon(s) TRUE BLUE BL [id number] [employer] [id number] [employer] [id number] [employer] [place] [id number] [employer] [place] [id number] Social History Type Description Quantity Date Captured [...] on due Goal DEXA Scan. Due on 3 due Goal BMP. Due on due Goal [...] on due Goal DEXA Scan. Due on 3 due Goal Mammogram. Due on 5 due Goal Colonoscopy. Due on due Goal Hepatitis C Screening. Due o n due Goal Influenza vaccine. Due on due Goal DEXA Scan. Due on 3 due Goal Pneumococcal vaccine due Goal Mammogram. Due on 4 due Goal BMP. Due on due Goal CBC due Goal ECG. Due on due Goal Diabetes screeni ng (Fasting Glucose or A1C). Due on due Goal Lipid Panel. Due on 023 due Goal ECG. Due on due Goal CBC due Goal Lipid Panel. Due on 023 due Goal Pap/HPV testing. Due on due Goal BMP. Due on due Goal Diabetes screeni ng (Fasting Glucose or A1C). Due on due Goal Colonoscopy. Due on due Goal Pneumococcal vaccine due Goal DEXA [...] Goal Pap/HPV testing. Due on due Goal Pneumococcal vaccine. Due [...] Goal Lipid Panel. Due on due Goal Hepatitis C Screening. Due o n due Goal Colonoscopy. Due on due Goal Pneumococcal vaccine. Due on due Goal Mammogram. Due on 9 due Goal DEXA Scan. Due on 2 due Goal Influenza vaccine. Due on due Goal Diabetes screeni ng (Fasting Glucose or A1C). Due on due Goal BMP. Due on due Goal CBC. Due on due Goal ECG. Due on due Goal Lipid Panel. Due on 015 due Goal BMP. Due on due Goal [...] C Screening. Due o n due Goal HIV screen. Due on 18 [...] ordered Referral Referred To: [place], [phone] Ordered: Referrals: Otolaryngology. ENT Jon. Evaluate and [...] Jesus [address] [place], [place], [phone] Ordered: Referrals: Orthopedic Surgery. Conrad Jesus. Evaluate and treat Appointment date/timeframe: Next Available ordered Referral Referred To: [facility] [address] [place], [phone] Ordered: Referrals: Otolaryngology. [facility]. Evaluate and treat Appointment date/timeframe: Next Available ordered Referral Ordered: DIAGNOSTIC MAMMOGRAM, BILATERAL ordered Referral Ordered: US GUIDE FOR BIOPSY Left breast ordered Referral Ordered: SCREENING MAMMO BILATERAL ordered Future Order: Lab Order BMP ([id number]), O rdered on: Ordered Future Order: Lab Order Vitamin D, 25-Hydroxy ([id number]), Ordered on: Ordered Future Order: Lab Order PTH, Int act ([id number]), Ordered on: Ordered History Of Present Illness [...] ago. The patient has been using an snsu-jjo-xkvvhop nasal spray from [employer] but stopped due to the loss of [...] - 04/2021 Advance directives- doesn't have, recommendedCovid- L2 x3- bivalent due; would like thisAnnual Flu [...] kombuchaExercise- hiking 9 miles a weekTobacco/lung cancer [id number]- filled out today on paperHep-C screening- nothing [...] vaginal estrogen and testosterone by provider in [place]. Hasn't been using estrogen since starting on [...] oftenLast labs: yesterday for hormonesMammogram: 05/05/2018- negative results-DUE([facility] [place])Dexa: 05/05/2018- osteopeniaPap: NA, last in 2011?Colonoscopy:5+ [...] vertigoSister on metoprolol and lisinopril after [facility] blood pressures running ~135/80 when taking [...] doing the same now. 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 Has gained ~10 lbs and had trouble [...] over a year. 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 Asthma tends to flare [...]
--- OUTSIDE RECORDS SUMMARY | 2024-05-09 10:33 | XMS_ITS ---
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 Name Role Phone Kenn Mullen MD Primary Care Provider Ernesto Gonzalez Unavailable [phone] Allergies Allergen (clinical drug ingredient) Drug/Non Drug Allergy documented on EMR Reaction Allergy Type Onset Date Status Seasonale Unknown Drug Allergy Active REASON FOR VISIT Last PCP Visit: 08/2023, Heel pain Medications Medication SIG (Take, Route, Frequency, Duration) Notes Start Date End Date Status Arnuity Ellipta 100 mcg Acti ve Albuterol Sulfate HFA Active Atorvastatin Calcium 10 MG Oral for 90 Active Fluticasone Propionate 50 MCG/ACT 1 spray in each nostril Nasally Once a day for 30 day(s) Active Glucosamine as directed Orally Active Calcium 600 MG as directed Orally Once a day Not-Taking Voltaren 1 % as directed Externally 10/20/2023 Active Flovent HFA 110 MCG/ACT 1 puff Inhalatio n Twice a day Not-Taking Physical Therapy . . . 2-3x/week for 3-4 weeks 10/20/2023 Active Night Splint AFO - L1930 as directed 10/20/2023 Active Vitamin D3 50 MCG (1999 UT) as directed Orally Once a day Active ZyrTEC Allergy Orally Once a day Active hydroCHLOROthiazide 25 MG 1 tablet in th e morning Orally Once a day Active Losartan Potassium 25 MG 1 tablet Orally Once a day for 30 day(s) Active Social History Tobacco Use: Social History Observation Description Date Details (start date - stop date) Never Smoker NA - NA Tobacco Use/Smoking Question Answer Notes Are you a: nonsmoker Additional Findings: Tobacco Non-User Current no n-smoker Alcohol Screen Question Answer Notes Did you have a drink containing alcohol in the p ast year? Yes Points 0 Interpretation Negative Tobacco use other than smoking: Question Answer Notes Are you an other tobacco user? No Vital Signs Height 5 ft 7 in in 10/20/2023 Weight 219 lbs 10/20/2023 BMI 34.30 kg/m2 10/20/2023 Encounters Encounter Location Date Provider Diagnosis [facility] [place] [address] [place] [address] 10/20/2023 Ernesto Bethea Plantar fascial fibromatosis M72.2 ; Pain in left foot M79.672 and Calcaneal spur, left foot M77.32 Assessments Encounter Date Diagnosis (ICD Code) Assessment Notes Treatment Notes Treatment Clinical Notes Section Notes 10/20/2023 Plantar fascial fibromatosis (ICD-10 - M72.2) Patient Educated with: HEEL CORD STRETCHES.pdf (HEEL CORD STRETCHES.pdf) Patient Educated with: [facility].pdf ([facility].pdf) 10/20/2023 Pain in left foot (ICD-10 - M79.672) 10/20/2023 Calcaneal spur, left foot (ICD-10 - M77.32) Plan Of Treatment Medication Medication Name Sig Start Date Stop Date Notes Voltaren 1 % as directed Externally 10/20/2023 Physical Therapy . . . 2-3x/week for 3-4 weeks 10/20/2023 Night Splint AFO - L1930 as directed 10/20/2023 Treatment Notes Assessment Notes Plantar fascial fibromatosis Patient Edu cated with: HEEL CORD STRETCHES.pdf (HEEL CORD STRETCHES.pdf) Patient Educated with: [facility].pdf ([facility].pdf) Pending Test Test Name Order Date X ray : Foot, left 3V 10/20/2023 Next Appt Details Follow Up: 4 Weeks, Reason: Progress Notes * Kendal LEO ADOB: [birth year] (73 yo F)Acc No.[id number]:10/20/2023 Progress Note Patient:?Kendal Leo Provider:?Ernesto Bethea DPM :1950???Age:73 Y???Sex:Female D ate:10/20/2023 Address:[address] [place] [address], [facility] [place], [id number] Pcp:Kenn Mullen MD Subjective: * Chief Complaints: * ??? Last PCP Visit: 08/2023He el pain * HPI: ???Heel pain:?Nature:?bruising, burning, sharp pain.?Location:?plantar, Arch, LEFT.?Duration:?a week .?Onset/Cause:?unknown, denies trauma.?Course:?worse.?Aggravated:?walking first thing in the morning/after rest.?Treatments:?change in shoes.?Severity/Quality:?moderate, severe.? * ROS:?General/Constitutional:?Nausea?denies, denies.?Vomiting?denies, denies.?Hunger Thirst?denies, denies.?Loss appetite?denies, denies.?Chills?denies, denies.?Fatigue?denies, denies.?Fever?denies, denies.?Night Sweats denies, denies.?Unexplained weight loss?denies, denies.?Unexplained weight gain?denies.?Ophthalmologic:?Blurred vision?denies.?Red eye?denies.?HEENTM:?Dentures?denies, denies.?Dizziness?denies, denies.?Glasses/contacts?admits, denies.?Retinopathy?denies, denies.?Blurred/double vision?denies, denies.?TMJ?denies, denies.?Discharge/drainage?denies, denies.?Implants?denies, denies.?Sore throat?denies.?Dental implants?denies.?Hard of hearing ?denies, denies.?Difficulty chewing/swallowing/speaking?denies, denies.?Nose bleeds?denies, denies.?Sore mouth?denies, denies.?Swollen glands?denies.?Respiratory:?On Oxygen?denies, denies.?Pneumonia/pleurisy?denies, denies.?Bronchitis?denies, denies.?Emphysema?denies, denies.?Coughing?denies, denies.?Cough blood?denies, denies.?Shortness of breath?denies, denies.?Wheezing?denies, denies.?Cardiovascular:?Pacemaker?denies, denies.?MVP?denies, denies.?WPW?denies, denies.?CHF?denies, denies.?Heart attack?denies, denies.?Septal defect?denies, denies.?Rapid beat?denies, denies.?Chest pain ?denies, denies.?Atrial Fib.?denies, denies.?Murmur/Palpitations?denies, denies.?Gastrointestinal:?Hemorrhoids?denies, denies.?Stomach/Abdominal pain?denies, denies.?Dark blood stool?denies, denies.?Irritable bowel ?denies, denies.?Constipation?denies, denies.?Diarrhea?denies, denies.?Vomiting?denies.?Hematology:?Swelling?denies, denies.?Clots?denies.?Varicose Veins?denies.?Bruising?denies, denies.?Bleeding problem?denies, denies.?Genitourinary:?Blood urine?denies, denies.?Frequent/Painfu/urination/bladder control?denies, denies.?Kidney stones?denies, denies.?Infection (UTI)?denies, denies.?Nephropathy?denies, denies.?sex trans dis (STD)?denies.?Prostate?denies.?Musculoskeletal:?Hammertoes?denies, denies.?Bunions?denies, denies.?Scoliosis/kyphosis?denies.?Back Pain?denies.?Muscle Cramps/ Resting?denies.?Muscle cramps / walking?denies, denies.?Generalized aches and pains?denies, denies.?Weakness?denies, denies.?Integ.:?Madrid?denies, denies.?Scars?denies, denies.?Corns/calluses?denies, denies.?Ingrown nails?denies, denies.?Painful nails?denies, denies.?Open Sores?denies.?Rashes?denies, denies.?Neurologic:?Difficulty sleeping?denies, denies.?Bipolar?denies.?Brain disorder?denies, denies.?Numbness?denies.?Balance trouble?denies, denies.?Confusion?denies, denies.?Fainting/blackouts?denies, denies.?Headache?denies.?Tingling?denies.?Tremors?denies, denies.? * Medical History:? * Surgical History:?3 kidney s tones Attack 08/19/2019 * Hospitalization/Major Diagno stic Procedure:?Denies Past Hospitalization * Family History:?Mother: dece ased, heart attack, stroke, diagnosed with Family history of arthritis, Diabetic - NIDDM, Unspecified heart disease.?Father: .?Siblings: sister & brother- cancer, diagnosed with [...] drink containing alcohol in the past year??Yes ?Points?0 ?Interpretation?Negative ???Miscellaneous:?Caffeine: yes, frequency:, 1-2 cups per day. ?Children: yes, 2. ?Exercise: yes, active job , walking. ?Marital status: . ?Occupation: [employer]. * Medications:?TakingArnuity E llipta , Notes: 100 mcgAlbuterol Sulfate HFA Atorvastatin Calcium 10 MG Tablet Oral Fluticasone Propionate 50 MCG/ACT Suspension 1 spray in each nostril Nasally Once a dayGlucosamine as directed Orally hydroCHLOROthiazide 25 MG Tablet 1 tablet in the morning Orally Once a dayLosartan Potassium 25 MG Tablet 1 tablet Orally Once a dayVitamin D3 50 MCG (2000 UT) Capsule as directed Orally Once a dayZyrTEC Allergy Orally Once a dayTaking Arnuity Ellipta , Notes: 100 mcgTaking Albuterol [...] Once a dayTaking Vitamin D3 50 MCG (2000 UT) Capsule as directed Orally Once a dayTaking ZyrTEC Allergy Orally Once a dayNot-Taking/PRNCalcium 600 MG Tablet as directed Orally Once a dayFlovent HFA 110 MCG/ACT Aerosol 1 puff Inhalation Twice a dayMedication List reviewed and reconciled with the patientNot-Taking/PRN Calcium 600 MG Tablet as directed Orally Once a dayNot-Taking/PRN Flovent HFA 110 MCG/ACT Aerosol 1 puff Inhalation Twice a dayMedication List reviewed and reconciled with the patient * Allergies:?Seasonaleyes[Gian rgies Verified] Objective: * Vitals:?Ht: 5 ft 7 in, Wt:21 9, BMI:34.30, Shoe size:8.5. * Examination: ???General Examination: ?GENERAL APPEARANCE:?pleasant, alert, [...] medial calcaneal nerves, B/L.?BABINSKI REFLEX:?Absent, B/L.?Vascular: ?DP PULSES:?2/4, B/L.?PT PULSES:?/4, B/L.?CAPILLARY FILL TIME:?3 secs. per digit, B/L.?SKIN TEMPERTURE GRADIENT OF THE LOWER EXTERMITIES:?warm to cool, proximal to distal, B/L.?HAIR GROWTH/TEXTURE/ELASTICITY/TURGOR:?normal, B/L.?EDEMA:?no edema.?Dermatologic: ?SKIN FINDINGS:?Skin exam reveals normal texture, elasticity, and tugor. There are no masses. The interspaces are clear.?Heel Pain: ?INSPECTION REVEALS:? Pain on Palpation to Plantar Fascia med. and central bands, intrinsic musc., infra-calcaneal bursa, and med calc tubercle, LEFT foot--midsection.?Orthopedic: ?MUSCLE STRENGTH:?5/5 all groups in a symmetrical fashion B/L.?GAIT ABNORMALITY:?pronated, abducted, B/L.?X-Rays - IMAGING REPORT: ?Clinical Indication(s):? Evaluate Biomechanical Deformity.?Views:? 3 views of Foot, LEFT.?Findings:? positive infra-calcaneal exostosis, positive retro-calcaneal exostosis.?Foot structure:? reveals excess pronation with, anterior break in cyme line.?HAV:? increased First Intermetatarsal angle and Hallux Abductus angle consistent with Bunion deformity noted, hypertrophy of the dorsal and medial 1st MTH without subchondral cyst, moderate.? * Physical Examination:?L1930 Nightsplint AFO:?Application of static AFO, including soft interface material, adjustable for fit/ positioning/ pressure reduction, may be used for minimal ambulation, prefabricated, including fitting and adjustment:?Medium, Left.?L2999 Supplies:?Insoles-SSOT- graphite?B - W 7-8.5 cmft plus.? Assessment: * Assessment: 1.?Plantar fascial fibromato sis - M72.2 (Primary)?2.?Pain in left foot - M79.672?3.?Calcaneal spur, left foot - M77.32? Plan: * Treatment: * Procedure Codes:?12034 X-RAY EXAM OF LEFT FOOT 3V, Modifiers: 26 , [id number] AFO PLASTIC/OTH MATERIAL PREFAB, Modifiers: LT L2999 Insoles-Soft sole ($50) * Preventive Medicine:? ??Counseling:?Discussion:?-14: Office or other outpatient visit for the evaluation and management of an established patient, which required a medically appropriate history and/or examination and MODERATE level of DECISION MAKING for: 1 OR MORE CHRONIC PROBLEM(S) THATS WORSENING, 2 STABLE CHRONIC PROBLEMS, A NEWLY DIAGNOSED PROBLEM WITH UNCERTAIN PROGNOSIS, AN ACUTE COMPLICATED INJURY WITH MULTIPLE TREATMENT OPTIONS, OR AN ACUTE PROBLEM WITH ACCOMPANYING SYSTEMIC SYMPTOMS, THAT POSE(S) A MODERATE RISK OF MORBIDITY. THIS CONDITION MAY ALSO INCLUDE RX DRUG MANAGEMENT, OR A DECISON FOR MINOR SURGERY. The visit on the day of the [...] have encouraged the patient to call the office.?Heel pain:?FASCIITIS: I explained to the patient the possible etiologies of Plantar Fasciitis including foot type/shoegear/activity level/exercise routine and the risks/benefits of all the different treatment options for heel pain including: No treatment at all, Rest, Ice, NSAIDs(only if well tolerated after meals), New/supportive Shoegear, Strappings and Tapings, Stretching exercises, Deep Tissue Massage, Heel cups/cushions, Arch support/shoe inserts, Custom orthoses, Topical analgesics including Aspercream/Voltaren gel, Night splint AFO for am stiffness, Cortisone injection therapy, Cast boot with crutches/cane/or walker for assisted ambulation, Physical Therapy, EPAT/ESWT, Interfil injection therapy, as well as surgical [place]/Endoscopic Fasciitomy surgical procedures if needed. Recommendations were made to limit barefoot walking, eliminate wearing nonsupportive shoegear (i.e. flip-flops or sandals, or a shoe with an easily bendable, foldable, or twistable sole) and wear shoegear with a good solid sole, a supportive arch, and plenty of room for an insert/orthotic if necessary. If wearing sandals was required by the patient, we recommended orthopedic sandals such as Orthoheel or Birkenstock even while in the home. If the patient wore heels in the past, we recommended they continue, but eliminate the use of flats. The advantages and disadvantages of each option were discussed and the patients questions re: types of shoegear, custom vs prefabricated inserts, activity level, PO vs Topical medications (and their respective potential complications/drug interactions/side effects), and consistency in home treatment regimens for optimal success were answered to their satisfaction. Literature detailing plantar fasciitis and the various treatment options were dispensed and reviewed.? * Follow Up:?4 Weeks * Images: * Sign off status: Completed true * Provider:?Ernesto Bethea DPM Date:? 024 Generated for Printi mei/Poli/eTransmitting on:?05/09/2024 10:32 AM EDT History and Physical Notes * HPI (History of Present Illness) Category Sub-Category Detail Notes Category Not es Heel pain Duration: a week Nature: bruising, burning, s harp pain Severity/Quality: moderate, severe Location: plantar, Arch, LEFT Onset/Cause: unknown, denies trau ma Aggravated: walking first thing in the morning/after rest Course: worse Treatments: change in shoes Physical Examination Category Sub-Category Detail Notes Section Note s L1930 Nightsplint AFO Application of sta tic AFO, including soft interface material, adjustable for fit/ positioning/ pressure reduction, may be used for minimal ambulation, prefabricated, including fitting and adjustment: Medium, Left L2999 Supplies Insoles-SSOT- graphite B - W 7-8.5 cmft plus Examination Category Sub-Category Detail Notes Category Not es Heel Pain INSPECTION REVEALS: Pain on Palp ation to Plantar Fascia med. and central bands, intrinsic musc., infra-calcaneal bursa, and med calc tubercle, LEFT foot--midsection Neurological SENSORY: Neurological exa m reveals intact [...] (B): normal, B/L EDEMA (C): no edema X-Rays - IMAGING REPORT Findings: positive infra-calcaneal exostosis, positive retro-calcaneal exostosis Foot structure: reveals excess prona tion with, anterior break in cyme line HAV: increased First Inte rmetatarsal angle and Hallux Abductus angle consistent with Bunion deformity noted, hypertrophy of the dorsal and medial 1st MTH without subchondral cyst, moderate Views: 3 views of Foot, LEF T Clinical Indication(s): Evaluate Biomech anical Deformity
== END 2024-05-09 09:26 | disposition home or self-care (01) ==
LOC: HO.US 09:25
PROVIDERS: PCP Internal Medicine; Visit Provider Urology
DX: N20.0 Calculus of kidney (principal)
CPT/HCPCS: 76775

== ENCOUNTER → 2024-05-09 09:27 | Outpatient (BNV) | payer MEDICARE, SELFPAY | PROVIDERS: PCP Internal Medicine; Visit Provider Radiology Diagnostic Radiology | DX: N20.0 Calculus of kidney (principal) | CPT/HCPCS: 76775 ==

== ENCOUNTER 2024-07-12 15:20 | Outpatient (AMB) | payer MEDICARE, SELFPAY ==
--- NOTE | 2024-07-12 15:23 | A.OFFVIS_ITS ---
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 The patient is a 74-year-old female presenting with follow-up for nephrolithiasis. She has a previous diagnosis of nephrolithiasis and is here for a one-year follow-up. The patient completed a 24-hour urine collection, but the results were deemed invalid by the lab due to an extended collection time exceeding 26 hours. She confirmed that she collected the urine from Tuesday morning to Tuesday morning, maintaining a 24-hour period. The recent kidney ultrasound from April 2024 revealed multiple nonobstructing left renal calculi, with the largest measuring 4 mm. The right kidney showed no stones, and there was no change in the size of the left kidney stones. At least three calculi were identified, with the possibility of additional smaller stones. Elevated sodium and slightly elevated calcium levels were noted previously, warranting a re-evaluation. The patient's oxalate levels, initially high, had shown improvement. She has ceased taking supplementary calcium and relies on dietary sources like milk, which is important for her postmenopausal bone health. Results:Left kidney measures 11.2 x 4.6 x 5.4 cm. Multiple nonobstructing calculi -3 x 4 x 3 mm calculus in the interpolar region, and lower pole calculi measuring 2 x 3 x 3 mm and 3 x 2 x 3 mm. There is no hydronephrosis. No stones in the right kidney. 07/13/23--Kendal is a 72-year-old female who presents today to the office for a follow-up for nephrolithiasis. She had CT urogram done and I have reviewed results multiple stones up to 5 are noted in each kidney measuring from punctate up to 3 mm. The patient is currently asymptomatic. She has been increasing her water intake and drinking lemonade. She is taking vitamin B6 100 mg daily. Plan discussed follow-up in 1 year renal ultrasound in 24 hour urine prior. 10/27/2022? She is followed today for repeat litholink results. She was last seen by me on 07/26/2022 for litholink results. The patient was advised to continue Vitamin B 6 100mg daily, and consume adequate water intake and low sodium diet during that time. Repeat 24-hour urine collection test was ordered. She states she has been taking OTC vitamin B6 100 mg daily. I reviewed the 24-hour urine culture results from 08/01/2022 revealed Total urine volume 1.83 L, urine Calcium 212 mg slightly up from the prior collection, urine Oxalate was significantly improved to 33 mg down from 59, urine Sodium 292 mg and urine Citrate 739. Monitor kidney stones. CAT scan of the abdomen/pelvis stone protocol. Encouraged the patient to reduce sodium in diet. 07/26/2022? Telehealth fu--I have reviewed 24 hr urine collection, urine vol - 1.87 L, urine oxalate 59- elev, urine Na >200- elev., urine Ca <200 wnL? 15 minutes in face to face discussion greater than 50% in discussion regarding diagnosis and treatment options. Evaluation today-- blood:10 Alen/uL,? leukocytes:? 500 Celina/uL. I reviewed the 24 hr urine abnormalities including hyperoxaluria [facility] Medical History Renal stone Primary osteoarthritis of right knee Surgical History History of hysterectomy Social History Current occupational status: employed Current occupation: [employer] Review of Systems Const All systems reviewed & are unremarkable except as noted in HPI and below Reports no additional complaints Eyes Reports no additional complaints ENT Reports no additional complaints Card Reports no additional complaints Resp Reports no additional complaints GI Reports no additional complaints Reports as per HPI Musc Reports no additional complaints Skin/Breast Reports system reviewed and no additional complaints, except as documented Neuro Reports no additional complaints Psych Reports no additional complaints Endo Reports no additional complaints Charles/Lymph Reports no additional complaints Aller/Immun Reports no additional complaints Results Reviewed Results Reviewed: Date of Service: 05/09/24 EXAMINATION: US KIDNEY BILATERAL HISTORY: N20.0 - Calculus of kidney TECHNIQUE: Real-time grayscale ultrasound imaging of the kidneys was performed and images were reviewed. COMPARISON: Comparison is made with the prior examination dated 10/09/2021. FINDINGS: Right kidney: The right kidney measures 10.6 x 3.9 x 6.1 cm. Renal parenchymal echotexture and thickness are normal. There are no masses. There is no hydronephrosis or renal calculi. Left Kidney: The left kidney measures 11.2 x 4.6 x 5.4 cm. Renal parenchymal echotexture and thickness are normal. There are no masses. Multiple nonobstructing calculi are identified including a 3 x 4 x 3 mm calculus in the interpolar region, and lower pole calculi measuring 2 x 3 x 3 mm and 3 x 2 x 3 mm. There is no hydronephrosis. IMPRESSION: Left nephrolithiasis as described, without evidence of ureteral obstruction. the Date of Service: 06/22/23 EXAMINATION: CT ABDOMEN AND PELVIS WITHOUT AND WITH CONTRAST CLINICAL INFORMATION: Renal calculus. COMPARISON: Renal ultrasound 10/09/2021. CT abdomen and pelvis 08/17/2019. TECHNIQUE: Noncontrast CT of the abdomen and pelvis is performed followed by split bolus contrast-enhanced images using 85 mL Omnipaque 350 contrast.? Postcontrast imaging is performed during the combined nephrogram and excretion phase. Sagittal and coronal reformatted images were obtained on the technologist's workstation for both the precontrast and postcontrast phases. This CT examination was performed using dose optimization techniques as appropriate, variously including the following: *Automated exposure control *Adjustment of mA and/or kV according to patient size (this includes techniques or standardized protocols for targeted exams where dose is matched to indication/reason for exam; i.e. extremities or head) *Use of iterative reconstruction technique DLP: 1179 mGy-cm FINDINGS: LUNG BASES: Mild airway wall thickening and bronchiectasis. LIVER, GALLBLADDER, AND BILIARY TREE: The liver is normal in attenuation. Simple cyst in the left hepatic lobe for which no imaging follow-up is recommended. No biliary ductal dilatation. Multiple faceted gallstones on the order of 1-1.5 cm in size. No evidence of acute cholecystitis. PANCREAS: No discrete pancreatic mass. No pancreatic ductal dilatation. SPLEEN: Normal size spleen. ADRENAL GLANDS: No adrenal mass. KIDNEYS AND URETERS: 5 nonobstructing calculi in the left kidney ranging in size from punctate to 3 mm and 12-15 cm from the posterolateral skin surface. 5 nonobstructing calculi in the right kidney ranging in size from punctate to 3 mm and 13-16 cm from the posterolateral skin surface. The calculi are too small to accurately measure attenuation. The nephrograms are symmetric. A few tiny cortical hypodensities are seen bilaterally and too small to characterize but most likely cysts. No imaging follow-up is recommended. Contrast excretion is symmetric. No filling defects in the renal collecting systems. No hydroureteronephrosis. BLADDER: No discrete bladder mass. Trabeculated urinary bladder. GASTROINTESTINAL TRACT: Small hiatal hernia. Small and large bowel are normal in caliber. The appendix appears normal. A few scattered colonic diverticula without evidence of acute diverticulitis. ABDOMINAL WALL: Small fat-containing umbilical hernia. LYMPH NODES: No lymphadenopathy. VASCULAR: Mild aortoiliac atherosclerosis. No aortic aneurysm. PELVIC VISCERA: Hysterectomy. No pelvic mass. OSSEUS STRUCTURES: Degenerative facet disease in the lower lumbar spine. IMPRESSION: Multiple nonobstructing calculi bilateral kidneys without hydroureteronephrosis. No suspicious renal mass. Trabeculated urinary bladder wall. Cholelithiasis. Mild bronchiectasis and airway wall thickening visible at the lung bases. Assessment & Plan Assessment & Plan (1) Hyperoxaluria: Code(s): R82.992 - Hyperoxaluria Category: Medical (2) Bilateral kidney stones: Code(s): N20.0 - Calculus of kidney Category: Medical (3) Calcium nephrolithiasis: Code(s): N20.0 - Calculus of kidney Category: Medical Plan Plan The patient's nephrolithiasis will be monitored through regular follow-up. The April 2024 kidney ultrasound showed multiple nonobstructing left renal calculi, the largest being 4 mm, and no stones in the right kidney. The plan is to continue observation since the stones are small and nonobstructive. The patient will repeat the 24-hour urine collection to reevaluate sodium, calcium, and oxalate levels, following previous findings of elevated sodium and slightly elevated calcium, with improved oxalate levels. We discussed the importance of dietary calcium intake, especially postmenopausally, to support bone health and prevent further stone formation. Repeat 24 hour urine we will schedule a telehealth follow-up in 6 months to review. Left nephrolithiasis multiple stones, largest 4 mm, patient asymptomatic we will continue to monitor. Repeat renal ultrasound in 10 months. Orders: Orders US renal BI 10 Months N20.0 - Calculus of kidney Patient Instructions: The patient had an opportunity to ask questions regarding treatment plan. The patient expressed understanding and agreement with the above treatment plan. The patient is aware they should contact our office by phone for worsening of their current condition or the appearance of new symptoms. Compliance is encouraged with any medications and followup testing that is ordered. It is a privilege to be allowed the opportunity to participate in the urologic care of your patient. If you have any questions or concerns regarding treatment for the above conditions please do not hesitate to contact me. The office telephone contact is [phone]. This note is constructed in part using voice recognition software. While every effort has been made to ensure accuracy training representative errors may have been included. Yours sincerely, Sabiha Swartz MD Scribe Plan - Not visible on output: Patient was informed and verbally consented to the use of an ambient scribe for clinic note documentation during this visit. Coding Level of Care Code Est Pt Level 3 (22833) Complex EM visit Add On G2211 Diagnoses Hyperoxaluria R82.992 Bilateral kidney stones N20.0 Calcium nephrolithiasis N20.0
== END 2024-07-12 15:49 | disposition home or self-care (01) ==
LOC: HO.HUSH 15:21
PROVIDERS: PCP Internal Medicine; Visit Provider Urology
DX: R82.992 Hyperoxaluria (principal); N20.0 Calculus of kidney
CPT/HCPCS: 99213; G2211

== ENCOUNTER → 2024-07-12 15:20 | Outpatient (BNVA) | payer MEDICARE, SELFPAY | PROVIDERS: PCP Internal Medicine; Visit Provider Urology | DX: R82.992 Hyperoxaluria (principal); N20.0 Calculus of kidney | CPT/HCPCS: 99212 ==

== ENCOUNTER 2024-07-27 08:50 | Outpatient (AMB) | payer MEDICARE, SELFPAY ==
--- NOTE | 2024-07-27 08:54 | MHC.OFFVIS ---
Intake Visit Reasons: right knee injection Intake Note: Mr. Garcia presents to the office today for follow up of chronic right knee pain due to osteoarthritis. Her last cortisone injection was in November of 2023 and she is looking to repeat injection at this time. Allergies No Known Allergies Allergy (Verified 07/12/24 15:24) [facility] HPI right knee injection: Details: Mr. Garcia presents to the office today for follow up of chronic right knee pain due to osteoarthritis. Her last cortisone injection was in November of 2023 and she is looking to repeat injection at this time. [facility] Medical History Renal stone Primary osteoarthritis of right knee Surgical History History of hysterectomy Social History Current occupational status: employed Current occupation: [employer] Review of Systems Const All systems reviewed & are unremarkable except as noted in HPI and below Physical Exam Const General: cooperative, healthy appearing and no acute distress Resp Effort & Inspection: normal respiratory effort and able to speak in complete sentences Extrem Other: Right knee: normal to inspection. No ecchymosis, redness or joint effusion. Patient is able to demonstrate full knee flexion and extension. Crepitus felt with ROM. No tenderness to the medial or lateral joint lines. NVI. Office Procedures AMB Joint Injection/Aspiration Joint Injection/Aspiration Primary Site: right knee Prep: site was prepped using aseptic technique, ethochloride spray was applied and injection warnings given Injected: 80 mg of, DepoMedrol, with 8 mL of (2% plain lidocaine) and in the joint Approach Used: anterolateral Procedure: The patient tolerated the procedure well, but had some pain with the injection and there was some relief with the local anesthesia Coding 41521 - Large joint Procedure code (CPT) selection complete Assessment & Plan Assessment & Plan (1) Primary osteoarthritis of right knee: Code(s): M17.11 - Unilateral primary osteoarthritis, right knee Category: Medical Plan The patient was offered a cortisone injection in the right knee with 80 mg of DepoMedrol. The patient was explained the risks, benefits, and alternatives to receiving this injection. After receiving consent for the injection, the patient had the procedure done while in the office today. The patient tolerated the procedure well with no complications. . Follow-up will be PRN, or sooner if needed Coding Level of Care Code Est Pt Level 3 (20470) Diagnoses Primary osteoarthritis of right knee M17.11 CPT Codes Coding - 37839 Large joint: 60927 - Large joint ([id number])
--- OUTSIDE RECORDS SUMMARY | 2024-07-27 09:07 | XMS_ITS | Clinical Summary ---
Author Organization [facility] [address] [place] [address] [place] [phone] Phone Care Team Providers Care Floor Covering Printer Name Role Phone Landon Mullen MD Primary Care Provider [phone] Allergies Active Allergy Reactions Criticality Noted Date [...] 50 PLUS MULTIVITAMIN ORAL) Take by mouth. Activ e fluticasone HFA (FLOVENT HFA) 110 mcg/actuation inhaler [...] mcg (2,000 unit) tablet Take by mouth. Activ e Arnuity Ellipta 100 mcg/actuation blister with device inhaler Inhale 1 puff by mouth 1 (one) time each day. 3 each 1 4 Active losartan (COZAAR) 25 mg tablet TAKE 1 TABLET DAILY 90 tablet 1 5 Active fluticasone propionate (FLONASE) 50 mcg/actuation nasal spray Administer 2 sprays into each nostril 1 (one) time each day. 48 g 1 5 Active Active Problems Problem Noted Date Diagnosed Date Kidney stones 09/10/2019 Severe obesity (BMI 35.0-39. 9) with comorbidity ([facility] V24, [facility] V28) 04/11/2019 Allergic rhinitis 06/29/2017 Essential hypertension 06/29/2017 Mild persistent asthma 06/29/2017 Osteoarthritis of right knee 06/29/2017 Vitamin D deficiency 06/29/2017 Immunizations Name Administration Dates Next Due Influenza Quadravalent, MDCK , 0.5ml, preservative free (Flucelvax) 6mo and older 12/31/2016 Influenza trivalent, 0.5mL ( Fluad) 65yo and older 12/03/2017 Influenza trivalent, 0.5mL, preservative free (Fluarix; FluLaval; Fluzone) ages 6mo and older (Afluria) 3 years and older 11/25/2018,01/05/2016,12/27/2014,11/08,12/07/2012,01/31/2012,11/12/2010 Vyteris SARS-CoV-2 COVID-19, mRNA, LNP-S, preservative free 01/09/2021 [...] care for your loved ones. For example, childcare worker or elderly care for an older adult? [...] 3:30 PM EDT Office Visit Adult Medicine [address] [phone] Landon Mullen MD [address] [place] [phone] Health Maintenance Due Date Last Done Comments Zoster Vaccines (1 of 2) 2002 RSV Immunization Adult Patients (1 - Risk 60-74 years 1-dose series) 2012 COVID-19 Vaccine ( season) 2023 11/21/2021, 01/09/2021, 05/13/2020, Additional history [...] age to complete this topic Meningococcal B Vaccine Aged Out No l onger eligible based on patient's age to complete this topic RSV Immunization Patients Under 20 months Aged Out No longer eligible based on patient's age to complete this topic Varicella Vaccines Aged Out No longer eligible based on patient's age to complete this topic Procedures Procedure Name Priority Date/Time Associated Diagnosis Comments COMPREHENSIVE METABOLIC PANEL Routine 03/26/2024 9:00 AM EST Essential hypertension Encounter for long-term (current) use of medications LIPID PANEL WITH REFLEX TO DIRECT LDL Routine 03/26/2024 9:00 AM EST Hypercholesterolemia MAMMOGRAPHY Routine 04/12/2023 FALLS RISK ASSESSMENT Routine [...] mg/dL LAB CHEMISTRY METHOD 03/26/2024 3:00 PM [facility] Triglycerides 82 0 - 150 mg/dL LAB CHEMISTRY METHOD 03/26/2024 3:00 PM [facility] HDL 61 >=40 mg/dL LAB CHEMISTRY METHOD 03/26/2024 3:00 PM [facility] LDL Calculated 80 0 - 100 mg/dL LAB CHEMISTRY METHOD 03/26/2024 3:00 PM [facility] VLDL Cholesterol Herve 16.4 mg/dL LAB CHEMISTRY METHOD 03/26/2024 3:00 PM [facility] Non HDL Chol. (LDL+VLDL) 96 <145 mg/dL LAB CHEMISTRY METHOD 03/26/2024 3:00 PM [facility] Chol/HDL Ratio 2.6 0.0 - 4.4 LAB CHEMISTRY METHOD 03/26/2024 3:00 PM [facility] Blood Venous blood specimen / Unknown Venipuncture / Unknown 03/26/2024 9:00 AM EST 03/26/2024 9:00 AM EST us Landon Mullen MD LAB BLOOD ORDERABLES Final Resu lt [facility] [address] [place] [address], * (ABNORMAL) Comprehensive metabolic panel (03/26/2024 9:00 AM EST) Sodium 141 133 - 145 mmol/L LAB CHEMISTRY METHOD 03/26/2024 2:57 PM [facility] Potassium 3.8 3.5 - 5.5 mmol/L LAB CHEMISTRY METHOD 03/26/2024 2:57 PM [facility] Chloride 103 96 - 110 mmol/L LAB CHEMISTRY METHOD 03/26/2024 2:57 PM [facility] CO2 34(H) 21 - 32 mmol/L LAB CHEMISTRY METHOD 03/26/2024 2:57 PM [facility] Anion Gap 4 3 - 11 LAB CHEMISTRY METHOD 03/26/2024 2:57 PM [facility] Glucose 105(H) 70 - 100 mg/dL LAB CHEMISTRY METHOD 03/26/2024 2:57 PM [facility] BUN 25 5 - 25 mg/dL LAB CHEMISTRY METHOD 03/26/2024 2:57 PM [facility] Creatinine 0.77 0.50 - 1.10 mg/dL LAB CHEMISTRY METHOD 03/26/2024 2:57 PM [facility] eGFR 83 >=60 mL/min/1. 73m2 LAB CHEMISTRY METHOD 03/26/2024 2:57 PM [facility] Comment:Calculation based on the??Chronic Kidney Disease Epidemiology Collaboration (CKD-EPI) equation refit??without adjustment for race. BUN/Creatinine Ratio 32.5 LAB CHEMISTRY METHOD 03/26/2024 2:57 PM [facility] Calcium 9.5 8.5 - 10.5 mg/dL LAB CHEMISTRY METHOD 03/26/2024 2:57 PM [facility] AST (SGOT) 21 10 - 42 unit/L LAB CHEMISTRY METHOD 03/26/2024 2:57 PM [facility] ALT (SGPT) 37 10 - 60 unit/L LAB CHEMISTRY METHOD 03/26/2024 2:57 PM [facility] Alkaline Phosphatase 73 42 - 121 unit/L LAB CHEMISTRY METHOD 03/26/2024 2:57 PM [facility] Total Protein 6.7 6.0 - 8.0 g/dL LAB CHEMISTRY METHOD 03/26/2024 2:57 PM [facility] Albumin 3.5 3.2 - 5.0 g/dL LAB CHEMISTRY METHOD 03/26/2024 2:57 PM [facility] Total Bilirubin 0.6 0.0 - 1.4 mg/dL LAB CHEMISTRY METHOD 03/26/2024 2:57 PM [facility] Blood Venous blood specimen / Unknown Venipuncture / Unknown 03/26/2024 9:00 AM EST 03/26/2024 9:00 AM EST Landon Mullen MD LAB BLOOD ORDERABLES Final Resu lt [facility] [address] [place] [address], * Mammography (04/12/2023) Mammogram abstract [facility] /sr Anatomical Region Laterality Modality Other Historical Provider HEALTH MAINTENANCE Final Result * Falls Risk Assessment (03/22/2023) Falls Risk Assessment abstracted Historical Provider HEALTH MAINTENANCE Final Result * DXA BONE DENSITY STUDY 1+ GLENDA DELANEY (03/17/2021 3:56 PM EST) Anatomical Region Laterality [...] (World Health Organization Fracture Risk Assessment) [facility] Department of Internal Medicine recommends using [...] alternative screening schedule based on chandra Rand., BANNER March 04, 2011 for patients with osteopenia [...] (World Health Organization Fracture Risk Assessment) [facility] Department of Internal Medicine recommendsusing National [...] PROCEDURES Final Res ult * Colonoscopy (08/18/2018) [facility] Colonoscopy no interpretation , abstracted Anatomical Region Laterality Modality Other Historical Provider HEALTH MAINTENANCE Final Result * Hepatitis C Screening (04/17/2018) [facility] Hepatitis C Screening abstracted Historical Provider HEALTH MAINTENANCE Final Result from Last 3 Months or Most Recently Relevant to Health Maintenance Insurance MEDICARE [facility] Advance Directives * Full Code - Confirmed (Latest Code Status on File) Date Activated Date Inactivated Comments 03/26/2024 8:12 AM This code stat us was ascertained in the following way: Code status discussion: discussion with patient To update the patient's code status, place a code status order. Do not modify or discontinue any currently active code status orders. Care Teams Floor Covering Printer Relationship Specialty Start Date End Date Landon Mullen MD [address] [place] [id number] PCP - General Internal Medicine 07/15/20
== END 2024-07-27 08:55 | disposition home or self-care (01) ==
LOC: HO.HOS 08:51
PROVIDERS: PCP Internal Medicine; Visit Provider Physician Assistant
DX: M17.11 Unilateral primary osteoarthritis, right knee (principal)
CPT/HCPCS: 20610; 99213

== ENCOUNTER → 2024-07-27 08:50 | Outpatient (BNVA) | payer MEDICARE, SELFPAY | PROVIDERS: PCP Internal Medicine; Visit Provider Physician Assistant | DX: M17.11 Unilateral primary osteoarthritis, right knee (principal) | CPT/HCPCS: 20610; 99212; J1010; J2003 ==

== ENCOUNTER 2025-01-17 14:37 | Outpatient (AMB) | payer MEDICARE, SELFPAY ==
--- NOTE | 2025-01-17 14:15 | A.OFFVIS_ITS ---
Intake Visit Reasons: 6m/[facility] (set) Intake Note: Patient presents today via telehealth for a 6m follow-up/Aysha * 11/04 [facility] Complete Urology Meds-None Allergies to Antibiotic-No Known Allergies Blood Thinner-None Spooling Supervisor Required: No Accompanied by: Self / Same As Patient Allergies No Known Allergies Allergy (Verified 02/25/25 14:32) HPI Comments Details: 01/17/25--Kendal is a 74-year-old female who is followed for nephrolithiasis she presents for a telehealth follow-up she had repeat 24 hour urine collection.Discussed 24 hour urine results collected: 11/04/2024 Total volume 1.05 L L, Calcium 91 mg; Oxalate 38 mg, Citrate 604 mg, Sodium 174. History of Present Illness The patient is a 74-year-old female presenting for a telehealth follow-up for nephrolithiasis. Her last imaging was in April of this year, which revealed a few small stones in the left kidney. The patient has discontinued her calcium supplement tablets, which has resulted in an improvement in her urine calcium levels. She reports drinking whole milk during the day. Results - Labs: - 24-hour urine collection (October): - Urine calcium: 91 (normal range). - Urine oxalate: 38 (normal). - Urine citrate: 604 (normal range). - Urine volume: 1.05 liters. (low) - Urine sodium: 174 (slightly elevated). - Imaging: - Kidney ultrasound (April): Showed a few small stones in the left kidney. Plan 1. Nephrolithiasis - A recent 24-hour urine collection demonstrated significant improvement in urine calcium, which has normalized to 91 after discontinuing calcium supplements. - Urine oxalate is 38 and urine citrate is 604, both within normal limits. - Urine volume was slightly low at approximately 1 liter, and urine sodium remains slightly elevated at 174. - The patient is advised to be mindful of her sodium intake. - A follow-up appointment is scheduled for June, after the ultrasound is completed. 07/12/24-- Kendal is a 74-year-old female here for 1 year follow-up, nephrolithiasis. The patient is a 74-year-old female presenting with follow-up for nephrolithiasis. She has a previous diagnosis of nephrolithiasis and is here for a one-year follow-up. The patient completed a 24-hour urine collection, but the results were deemed invalid by the lab due to an extended collection time exceeding 26 hours. She confirmed that she collected the urine from Tuesday morning to Tuesday morning, maintaining a 24-hour period. The recent kidney ultrasound from April 2024 revealed multiple nonobstructing left renal calculi, with the largest measuring 4 mm. The right kidney showed no stones, and there was no change in the size of the left kidney stones. At least three calculi were identified, with the possibility of additional smaller stone s. Elevated sodium and slightly elevated calcium levels were noted previously, warranting a re-evaluation. The patient's oxalate levels, initially high, had shown improvement. She has ceased taking supplementary calcium and relies on dietary sources like milk, which is important for her postmenopausal bone health. Results:Left kidney measures 11.2 x 4.6 x 5.4 cm. Multiple nonobstructing calculi -3 x 4 x 3 mm calculus in the interpolar region, and lower pole calculi measuring 2 x 3 x 3 mm and 3 x 2 x 3 mm. There is no hydronephrosis. No stones in the right kidney. 07/13/23--Kendal is a 72-year-old female who presents today to the office for a follow-up for nephrolithiasis. She had CT urogram done and I have reviewed results multiple stones up to 5 are noted in each kidney measuring from punctate up to 3 mm. The patient is currently asymptomatic. She has been increasing her water intake and drinking lemonade. She is taking vitamin B6 100 mg daily. Plan discussed follow-up in 1 year renal ultrasound in 24 hour urine prior. 10/27/2022? She is followed today for repeat litholink results. She was last seen by me on 07/26/2022 for litholink results. The patient was advised to continue Vitamin B 6 100mg daily, and consume adequate water intake and low sodium diet during that time. Repeat 24-hour urine collection test was ordered. She states she has been taking OTC vitamin B6 100 mg daily. I reviewed the 24-hour urine culture results from 08/01/2022 revealed Total urine volume 1.83 L, urine Calcium 212 mg slightly up from the prior collection, urine Oxalate was significantly improved to 33 mg down from 59, urine Sodium 292 mg and urine Citrate 739. Monitor kidney stones. CAT scan of the abdomen/pelvis stone protocol. Encouraged the patient to reduce sodium in diet. 07/26/2022? Telehealth fu--I have reviewed 24 hr urine collection, urine vol - 1.87 L, urine oxalate 59- elev, urine Na >200- elev., urine Ca <200 wnL? 15 minutes in face to face discussion greater than 50% in discussion regarding diagnosis and treatment options. Evaluation today-- blood:10 Alen/uL,? leukocytes:? 500 Celina/uL. I reviewed the 24 hr urine abnormalities including hyperoxaluria PFSH Medical History Renal stone Primary osteoarthritis of right knee Surgical History History of hysterectomy Social History Current occupational status: employed Current occupation: [employer] Telehealth Telehealth Platform: [place] Location of provider rendering services: practice address Location of patient: address on file Patient Identification confirmed using: Name, : Yes Telehealth method: video Patient verbally consented to treatment: Yes Patient verbally consented to billing insurance company: Yes Patient informed of any privacy concerns related to visit: Yes Results Reviewed Results Reviewed: Date of Service: 05/09/24 EXAMINATION: US KIDNEY BILATERAL HISTORY: N20.0 - Calculus of kidney TECHNIQUE: Real-time grayscale ultrasound imaging of the kidneys was performed and images were reviewed. COMPARISON: Comparison is made with the prior examination dated 10/09/2021. FINDINGS: Right kidney: The right kidney measures 10.6 x 3.9 x 6.1 cm. Renal parenchymal echotexture and thickness are normal. There are no masses. There is no hydronephrosis or renal calculi. Left Kidney: The left kidney measures 11.2 x 4.6 x 5.4 cm. Renal parenchymal echotexture and thickness are normal. There are no masses. Multiple nonobstructing calculi are identified including a 3 x 4 x 3 mm calculus in the interpolar region, and lower pole calculi measuring 2 x 3 x 3 mm and 3 x 2 x 3 mm. There is no hydronephrosis. IMPRESSION: Left nephrolithiasis as described, without evidence of ureteral obstruction. the Date of Service: 06/22/23 EXAMINATION: CT ABDOMEN AND PELVIS WITHOUT AND WITH CONTRAST CLINICAL INFORMATION: Renal calculus. COMPARISON: Renal ultrasound 10/09/2021. CT abdomen and pelvis 08/17/2019. TECHNIQUE: Noncontrast CT of the abdomen and pelvis is performed followed by split bolus contrast-enhanced images using 85 mL Omnipaque 350 contrast.? Postcontrast imaging is performed during the combined nephrogram and excretion phase. Sagittal and coronal reformatted images were obtained on the technologist's workstation for both the precontrast and postcontrast phases. This CT examination was performed using dose optimization techniques as appropriate, variously including the following: *Automated exposure control *Adjustment of mA and/or kV according to patient size (this includes techniques or standardized protocols for targeted exams where dose is matched to indication/reason for exam; i.e. extremities or head) *Use of iterative reconstruction technique DLP: 1179 mGy-cm FINDINGS: LUNG BASES: Mild airway wall thickening and bronchiectasis. LIVER, GALLBLADDER, AND BILIARY TREE: The liver is normal in attenuation. Simple cyst in the left hepatic lobe for which no imaging follow-up is recommended. No biliary ductal dilatation. Multiple faceted gallstones on the order of 1-1.5 cm in size. No evidence of acute cholecystitis. PANCREAS: No discrete pancreatic mass. No pancreatic ductal dilatation. SPLEEN: Normal size spleen. ADRENAL GLANDS: No adrenal mass. KIDNEYS AND URETERS: 5 nonobstructing calculi in the left kidney ranging in size from punctate to 3 mm and 12-15 cm from the posterolateral skin surface. 5 nonobstructing calculi in the right kidney ranging in size from punctate to 3 mm and 13-16 cm from the posterolateral skin surface. The calculi are too small to accurately measure attenuation. The nephrograms are symmetric. A few tiny cortical hypodensities are seen bilaterally and too small to characterize but most likely cysts. No imaging follow-up is recommended. Contrast excretion is symmetric. No filling defects in the renal collecting systems. No hydroureteronephrosis. BLADDER: No discrete bladder mass. Trabeculated urinary bladder. GASTROINTESTINAL TRACT: Small hiatal hernia. Small and large bowel are normal in caliber. The appendix appears normal. A few scattered colonic diverticula without evidence of acute diverticulitis. ABDOMINAL WALL: Small fat-containing umbilical hernia. LYMPH NODES: No lymphadenopathy. VASCULAR: Mild aortoiliac atherosclerosis. No aortic aneurysm. PELVIC VISCERA: Hysterectomy. No pelvic mass. OSSEUS STRUCTURES: Degenerative facet disease in the lower lumbar spine. IMPRESSION: Multiple nonobstructing calculi bilateral kidneys without hydroureteronephrosis. No suspicious renal mass. Trabeculated urinary bladder wall. Cholelithiasis. Mild bronchiectasis and airway wall thickening visible at the lung bases. Assessment & Plan Assessment & Plan (1) Hyperoxaluria: Code(s): R82.992 - Hyperoxaluria Category: Medical (2) Bilateral kidney stones: Code(s): N20.0 - Calculus of kidney Category: Medical (3) Calcium nephrolithiasis: Code(s): N20.0 - Calculus of kidney Category: Medical Plan Plan 1. Nephrolithiasis - A recent 24-hour urine collection demonstrated significant improvement in urine calcium, which has normalized to 91 after discontinuing calcium supplements. - Urine oxalate is 38 and urine citrate is 604, both within normal limits. - Urine volume was slightly low at approximately 1 liter, and urine sodium remains slightly elevated at 174. - The patient is advised to be mindful of her sodium intake. - A follow-up appointment is scheduled for June, after the ultrasound is completed. Patient Instructions: The patient had an opportunity to ask questions regarding treatment plan. The patient expressed understanding and agreement with the above treatment plan. The patient is aware they should contact our office by phone for worsening of their current condition or the appearance of new symptoms. Compliance is encouraged with any medications and followup testing that is ordered. It is a privilege to be allowed the opportunity to participate in the urologic care of your patient. If you have any questions or concerns regarding treatment for the above conditions please do not hesitate to contact me. The office telephone contact is [phone]. This note is constructed in part using voice recognition software. While every effort has been made to ensure accuracy reinforcing metal worker errors may have been included. Yours sincerely, Sabiha Swartz MD Scribe Plan - Not visible on output: Patient was informed and verbally consented to the use of an ambient scribe for clinic note documentation during this visit. Coding Level of Care Code Tele Est Pt Level 4 (88687) Diagnoses Hyperoxaluria R82.992 Bilateral kidney stones N20.0 Calcium nephrolithiasis N20.0
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
--- OUTSIDE RECORDS SUMMARY | 2025-01-17 20:46 | XMS_ITS | Encounter Summary ---
Author Organization [facility] Address [address] [place] [address] Care Team Providers Care Hoop Riveting Machine Operator Name Role Phone Landon Mullen MD Primary Care Provider [phone] Encounter Details Date Type Department Care Team (Late st Contact Info) Description 11/13/2024 Results Follow-Up Adult Medicine [address] [phone] Landon Mullen MD [address] [place] [address] Social History Tobacco Use Types Packs/Day Years [...] care for your loved ones. For example, early childhood education instructor or elderly care for an older adult? [...] Date Recorded What is your living situation? Unrecognized valu e 03/20/2024 Comments No Sex and Gender Information Value Date Recorded Sex Assigned at Female 01/27/2024 4:33 PM EST Legal Sex Female 2:17 PM EST Gender Identity Female 01/27/2024 4:33 PM EST Sexual Orientation Straight 01/27/2024 4: 33 PM EST documented as of this encounter Plan of Treatment Upcoming Encounters Date Type Department Care Team (Late st Contact Info) Description 05/16/2025 3:30 PM EDT Office Visit Adult Medicine [address] [phone] Landon Mullen MD [address] [place] [address] documented as of this encounter Visit Diagnoses Not on filedocumented in this encounter Additional Health Concerns Assessment Noted Time PHQ-9 Depression Total Score: 0 03/20/19 25 9:18 AM EST documented as of this encounter Care Teams Hoop Riveting Machine Operator Relationship Specialty Start Date End Date Landon Mullen MD [address] [place] [address] PCP - General Internal Medicine 07/15/20 documented as of this encounter
--- OUTSIDE RECORDS SUMMARY | 2025-01-17 20:46 | XMS_ITS | Clinical Summary ---
Author Organization [facility] [address] [place] [address] [place] [phone] Phone Care Team Providers Care Environmental Services Tech Name Role Phone Landon Mullen MD Primary Care Provider [phone] Allergies Active Allergy Reactions Criticality Noted Date Comments Other 06/29/2017 Seasonal Medications albuterol HFA (PROAIR HFA ; PROVENTIL HFA [...] (2,000 unit) tablet Take by mouth. Active atorvastatin (LIPITOR) 10 mg tablet TAKE 1 TABLET AT BEDTIME 90 tablet 3 5 Active losartan (COZAAR) 25 mg tablet TAKE 1 TABLET DAILY 90 tablet 3 5 Active hydroCHLOROthiazi de (HYDRODIURIL) 25 mg tablet TAKE 1 TABLET DAILY 90 tablet 3 5 Active Arnuity Ellipta 100 mcg/actuation blister with device inhaler Inhale 1 puff by mouth 1 (one) time each day. 3 each 1 5 Active fluticasone propionate (FLONASE) 50 mcg/actuation nasal spray USE 2 SPRAYS IN EACH NOSTRIL ONCE DAILY 48 g 1 5 Active Active Problems Problem Noted Date Diagnosed Date Kidney stones 09/10/2019 Severe obesity (BMI 35.0-39. 9) with comorbidity ([facility] V24, [facility] V28) 04/11/2019 Allergic rhinitis 06/29/2017 Essential hypertension 06/29/2017 Mild persistent asthma 06/29/2017 Osteoarthritis of right knee 06/29/2017 Vitamin D deficiency 06/29/2017 Encounters Date Type Department Care Team Description 11/13/2024 Results Follow-Up Adult Medicine [address] [phone] Landon Mullen MD 11/12/2024 Results Follow-Up Adult Medicine [address] [phone] Landon Mullen MD 11/06/2024 3:00 PM EDT Office Visit Adult Medicine [address] [phone] Landon Mullen MD Essential hypertension (Primary Dx); Moderate persistent asthma without complication; Hypercholesterolemia; Encounter for long-term (current) use of medications; Elevated blood sugar; Need for prophylactic vaccination and inoculation against influenza from Last 3 Months Immunizations Immunization Administration Dates Next Due Influenza Quadravalent, MDCK , 0.5ml, preservative free (Flucelvax) 6mo and older 12/31/2016 Influenza trivalent, 0.5mL ( Fluad) 65yo and older 11/06/2024,12/03/2017 Influenza trivalent, 0.5mL, preservative free (Fluarix; FluLaval; [...] care for your loved ones. For example, child day care teacher or elderly care for an [...] Sign Reading Time Taken Comments Blood Pressure 138/68 11/06/2024 2:57 PM EDT Pulse 78 11/06/2024 2:57 PM EDT Temperature 36.5 C (97.7 F) 11/06/2024 2:57 PM EDT Respiratory Rate 14 11/06/2024 2:57 PM EDT Oxygen Saturation 98% 11/06/2024 2:57 PM EDT Inhaled Oxygen Concentration - - Weight 98.9 kg (218 lb) 11/06/2024 2:57 PM EDT Height 170.2 cm (5' 7 ) 11/06/2024 2:57 PM EDT Body Mass Index 34.14 11/06/2024 2:57 PM EDT Plan of Treatment Upcoming Encounters Date Type Department Care Team (Late st Contact Info) Description 05/16/2025 3:30 PM EDT Office Visit Adult Medicine [facility] [address] [place] [phone] Landon Mullen MD [address] [place] [phone] Health Maintenance Due Date Last Done Comments RSV Immunization Adult Patients (1 - Risk 50-74 years 1-dose series) 2002 Zoster Vaccines (1 of 2) 2002 COVID-19 Vaccine ( season) 2024 11/21/2021, 01/09/2021, 05/13/2020, Additional history exists Social Influencers of Health Screening 03/20/2025 03/20/2024 Medicare Annual Wellness Visit 03/26/2025 03/26/2024 Breast Cancer Screening 04/12/2025 04/12/2023 Falls Risk Assessment 11/06/2025 11/06/2024 , 03/26/2024, 03/22/2023 Hypertension/CHF/CAD Annual BMP Blood Test 11/13/2025 11/13/2024, 11/06/2024, 03/26/2024, Additional history exists DTaP,Tdap,and Td Vaccines (4 - Td or Tdap) 04/17/2028 04/17/2018, 03/29/2013, 03/10/2005 Colorectal Cancer Screening: Colonoscopy 08/18/2028 08/18/2018 Cholesterol Screening (Lipid Panel) 11/06/2029 11/06/2024, 03/26/2024, 09/23/2023, Additional history exists Osteoporosis Screening (Bone Density Screening) 03/17/2031 03/17/2021 Hepatitis C Screening Completed 04/17/2018 Pneumococcal Vaccine: 50+ Years Completed 01/19/2021, 04/17/2018, 07/17/2015 Depression Screening Completed 10/30/2024 Influenza Vaccine Completed 11/06/2024, , 11/14/2022, Additional history exists HIB Vaccines Aged Out [...] Procedure Name Priority Date/Time Associated Diagnosis Comments BASIC METABOLIC PANEL Routine 11/13/2024 3:36 PM EDT Hypercapnemia LIPID PANEL WITH REFLEX TO DIRECT LDL Routine 11/06/2024 3:33 PM EDT Hypercholesterolemia COMPREHENSIVE METABOLIC PANEL Routine 11/06/2024 3:33 PM EDT Essential hypertension Encounter for long-term (current) use of medications Elevated blood sugar HEMOGLOBIN A1C Routine 11/06/2024 3:33 PM EDT Elevated blood sugar MAMMOGRAPHY Routine 04/12/2023 FALLS RISK ASSESSMENT Routine 03/22/2023 DXA BONE DENSITY STUDY 1+ SITS AXIAL SKEL Routine 03/17/2021 3:56 PM EST Encounter for screening for osteoporosis COLONOSCOPY Routine 08/18/2018 HEPATITIS C SCREENING Routine 04/17/2018 from Last 3 Months or Most Recently Relevant to Health Maintenance Results * (ABNORMAL) Basic metabolic panel (11/13/2024 3:36 PM EDT) Sodium 140 133 - 145 mmol/L LAB CHEMISTRY METHOD 11/13/2024 6:[address] [facility] Potassium 3.5 3.5 - 5.5 mmol/L LAB CHEMISTRY METHOD 11/13/2024 6:[address] [facility] Chloride 101 96 - 110 mmol/L LAB CHEMISTRY METHOD 11/13/2024 6:[address] [facility] CO2 32 21 - 32 mmol/L LAB CHEMISTRY METHOD 11/13/2024 6:[address] [facility] Anion Gap 7 3 - 11 LAB CHEMISTRY METHOD 11/13/2024 6:[address] [facility] Glucose 126(H) 70 - 100 mg/dL LAB CHEMISTRY METHOD 11/13/2024 6:[address] [facility] BUN 19 5 - 25 mg/dL LAB CHEMISTRY METHOD 11/13/2024 6:[address] [facility] Creatinine 0.63 0.50 - 1.10 mg/dL LAB CHEMISTRY METHOD 11/13/2024 6:[address] [facility] eGFR 94 >=60 mL/min/1. 73m2 LAB CHEMISTRY METHOD 11/13/2024 6:[address] [facility] Comment:Calculation based on the Chronic Kidney Disease Epidemiology Collaboration (CKD-EPI) equation refit without adjustment for race. BUN/Creatinine Ratio 30.2 LAB CHEMISTRY METHOD 11/13/2024 6:[address] [facility] Calcium 9.5 8.5 - 10.5 mg/dL LAB CHEMISTRY METHOD 11/13/2024 6:[address] [facility] Blood Venous blood specimen / Unknown Venipuncture / Unknown 11/13/2024 3:36 PM EDT 11/13/2024 3:36 PM EDT us Landon Mullen MD LAB BLOOD ORDERABLES Final Resu lt [facility] [address] [place] [address], [place] [phone] * Lipid panel with reflex to direct LDL (11/06/2024 3:33 PM EDT) Cholesterol 158 0 - 200 mg/dL LAB CHEMISTRY METHOD 11/06/2024 7:06 PM EDT [facility] Triglycerides 71 0 - 150 mg/dL LAB CHEMISTRY METHOD 11/06/2024 7:06 PM EDT [facility] HDL 74 >=40 mg/dL LAB CHEMISTRY METHOD 11/06/2024 7:06 PM EDT [facility] LDL Calculated 70 0 - 100 mg/dL LAB CHEMISTRY METHOD 11/06/2024 7:06 PM EDT [facility] Comment:Estimated LDL Calcul ated using equation: Total cholesterol - HDL cholesterol - (Triglycerides/5) VLDL Cholesterol Herve 14.2 mg/dL LAB CHEMISTRY METHOD 11/06/2024 7:06 PM EDT [facility] Non HDL Chol. (LDL+VLDL) 84 <145 mg/dL LAB CHEMISTRY METHOD 11/06/2024 7:06 PM EDT [facility] Chol/HDL Ratio 2.1 0.0 - 4.4 LAB CHEMISTRY METHOD 11/06/2024 7:06 PM EDT [facility] Blood Venous blood specimen / Unknown Venipuncture / Unknown 11/06/2024 3:33 PM EDT 11/06/2024 3:33 PM EDT us Landon Mullen MD LAB BLOOD ORDERABLES Final Resu lt [facility] [address] [place] [address], [place] [phone] * Hemoglobin A1c (11/06/2024 3:33 PM EDT) [facility] Hemoglobin A1C 5.4 <6.5 % LAB CHEMISTRY METHOD 11/06/2024 9:21 PM EDT [facility] Mean Bld Glu Estim. 108 mg/dL LAB CHEMISTRY METHOD 11/06/2024 9:21 PM EDT [facility] Blood Venous blood specimen / Unknown Venipuncture / Unknown 11/06/2024 3:33 PM EDT 11/06/2024 3:33 PM EDT us Landon Mullen MD LAB BLOOD ORDERABLES Final Resu lt [facility] [address] [place] [address], [place] [phone] * (ABNORMAL) Comprehensive metabolic panel (11/06/2024 3:33 PM EDT) [facility] Sodium 139 133 - 145 mmol/L LAB CHEMISTRY METHOD 11/06/2024 7:[address] [facility] Potassium 3.7 3.5 - 5.5 mmol/L LAB CHEMISTRY METHOD 11/06/2024 7:[address] [facility] Chloride 99 96 - 110 mmol/L LAB CHEMISTRY METHOD 11/06/2024 7:07 PM T [facility] CO2 36(H) 21 - 32 mmol/L LAB CHEMISTRY METHOD 11/06/2024 7:07 PM T [facility] Anion Gap 4 3 - 11 LAB CHEMISTRY METHOD 11/06/2024 7:[address] [facility] Glucose 79 70 - 100 mg/dL LAB CHEMISTRY METHOD 11/06/2024 7:[address] [facility] BUN 19 5 - 25 mg/dL LAB CHEMISTRY METHOD 11/06/2024 7:[address] [facility] Creatinine 0.76 0.50 - 1.10 mg/dL LAB CHEMISTRY METHOD 11/06/2024 7:[address] [facility] eGFR 83 >=60 mL/min/1. 73m2 LAB CHEMISTRY METHOD 11/06/2024 7:[address] [facility] Comment:Calculation based on the Chronic Kidney Disease Epidemiology Collaboration (CKD-EPI) equation refit without adjustment for race. BUN/Creatinine Ratio 25.0 LAB CHEMISTRY METHOD 11/06/2024 7:[address] [facility] Calcium 9.8 8.5 - 10.5 mg/dL LAB CHEMISTRY METHOD 11/06/2024 7:[address] [facility] AST (SGOT) 29 10 - 42 unit/L LAB CHEMISTRY METHOD 11/06/2024 7:[address] [facility] ALT (SGPT) 53 10 - 60 unit/L LAB CHEMISTRY METHOD 11/06/2024 7:[address] [facility] Alkaline Phosphatase 81 42 - 121 unit/L LAB CHEMISTRY METHOD 11/06/2024 7:[address] [facility] Total Protein 7.1 6.0 - 8.0 g/dL LAB CHEMISTRY METHOD 11/06/2024 7:[address] [facility] Albumin 4.2 3.2 - 5.0 g/dL LAB CHEMISTRY METHOD 11/06/2024 7:[address] [facility] Total Bilirubin 0.8 0.0 - 1.4 mg/dL LAB CHEMISTRY METHOD 11/06/2024 7:[address] [facility] Blood Venous blood specimen / Unknown Venipuncture / Unknown 11/06/2024 3:33 PM EDT 11/06/2024 3:33 PM EDT us Landon Mullen MD LAB BLOOD ORDERABLES Final Resu lt [facility] [address] [place] [address], * Mammography (04/12/2023) Mammogram abstract [facility] / Anatomical Region Laterality Modality Other us Historical Provider HEALTH MAINTENANCE Final Result * Falls Risk Assessment (03/22/2023) Pathologist [facility] Falls Risk Assessment abstracted Historical Provider HEALTH MAINTENANCE Final Result * DXA BONE DENSITY STUDY 1+ SITS AXIAL SKEL (03/17/2021 3:56 PM EST) Anatomical Region Laterality Modality Bone Densitometr y 05/12/2020 3:41 PM EDT Narrative 03/18/2021 11:53 AM EST BONE DENSITY (DEXA) Lumbar Spine T-score is [...] (World Health Organization Fracture Risk Assessment) The [facility] Department of Internal Medicine recommends [...] FRAX. Optional alternative screening schedule based on oliver Rand al., [facility] March 04, 2011 for patients [...] (World Health Organization Fracture Risk Assessment) The [facility] Department of Internal Medicine recommendsusing [...] FRAX. Optional alternative screening schedule based on oliver Rand al., NEJMJanuary 2011 for patients with osteopenia (based on hip BMD T-score) is as follows: * advanced osteopenia (T scores -2.00 to -2.49), BMD testing every year * moderate osteopenia (T scores -1.50 to -1.99), BMD testing every 5years mild osteopenia or normal BMD (T scores -1.50 and higher), BMD testingevery 15 years Jenifer Mast MD [facility] DXA PROCEDURES Final Res ult * Colonoscopy (08/18/2018) [facility] Colonoscopy no interpretation , abstracted Anatomical Region Laterality Modality Other Historical Provider HEALTH MAINTENANCE Final Result * Hepatitis C Screening (04/17/2018) [facility] Hepatitis C Screening abstracted [facility] Provider HEALTH MAINTENANCE Final Result from Last 3 Months or Most Recently Relevant to Health Maintenance Insurance MEDICARE [facility] Advance Directives * Full Code - Confirmed (Latest Code Status on File) Date Activated Date Inactivated Comments 03/26/2024 8:12 AM This code stat us was ascertained in the following way: Code status discussion: discussion with patient To update the patient's code status, place a code status order. Do not modify or discontinue any currently active code status orders. Care Teams Environmental Services Tech Relationship Specialty Start Date End Date Landon Mullen MD [address] [place] [phone] PCP - General Internal Medicine 07/15/20
--- OUTSIDE RECORDS SUMMARY | 2025-01-17 20:46 | XMS_ITS | Encounter Summary ---
Author Organization [facility] Address [address] [place] [address] Care Team Providers Care Correctional Supervisor Name Role Phone Landon Mullen MD Primary Care Provider [phone] Encounter Details Date Type Department Care Team (Late st Contact Info) Description 11/12/2024 Results Follow-Up Adult Medicine [address] [phone] Landon Mullen MD [address] [place] [address] Social History Tobacco Use Types Packs/Day Years [...] your loved ones. For example, early childhood associate teacher or elderly care for an older [...] 3:30 PM EDT Office Visit Adult Medicine [address] [phone] Landon Mullen MD [address] [place] [address] documented as of this encounter Visit Diagnoses Not on filedocumented in this encounter Additional Health Concerns Assessment Noted Time PHQ-9 Depression Total Score: 0 03/20/19 25 9:18 AM EST documented as of this encounter Care Teams Correctional Supervisor Relationship Specialty Start Date End Date Landon Mullen MD [address] [place] [address] PCP - General Internal Medicine 07/15/20 documented as of this encounter
--- OUTSIDE RECORDS SUMMARY | 2025-01-17 20:46 | XMS_ITS | Patient Health Record ---
Author Organization [facility] Address [address] [place] [phone] Care Team Providers Care Food And Beverage Intern Name Role Phone Jenifer Mast M.D. Primary Care Provider Adia Curry Wall Jr Unavailable [phone] Reason For Referral No Information Medications Medication SIG (Take, Route, Frequency, Duration) Notes Start Date End Date Status Colyte with Flavor Packs 240 GM Solution Reconstituted As directed Orally Over the specified time.; Duration: 1 day(s) 06/07/2018 Active Vitamin D 2000 UNIT Tablet 1 tablet Oral ly Once a day; Duration: 30 day(s) Active Glucosamine HCl 1500 MG Tablet 1 tablet Orally Once a day; Duration: 30 day(s) Active Proventil HFA 108 (90 Base) MCG/ACT Aerosol Solution 2 puffs as needed Inhalation every 4 hrs Active Cetirizine HCl 10 MG Tablet 1 tablet as needed Orally Once a day Active Fluticasone Propionate 50 MCG/ACT Suspension 1 spray in each nostril Nasally Once a day Active hydroCHLOROthiazide 25 MG Tablet 1 tablet Orally Once a day Active Immunizations Vaccine Route Administration Date Status Comme nts Influenza Unknown 12/21/2017 Administered Social History Social History Additional Details Category Social Info Options Details Miscellaneous: Marital status: 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 [employer] Problems Problem Type SNOMED Code ICD Code Onset Dates Problem Status W/U Status Risk Notes Problem Colon cancer screening (082583472) Colon cancer screening (Z12.11) Active confirmed Problem Long-term current use of drug therapy (691078522) 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) use of oral hypoglycemic drugs (Z79.84) Active confirmed Plan Of Treatment Future Test Test Name Order Date COLONOSCOPY 06/28/2014 COLONOSCOPY 06/07/2018 Insurance Providers Payer Name Payer Address Payer Phone Subscriber Number Group Number Insured Name Patient Relationship to Insured Coverage Start Date Coverage End Date MEDICARE OF [place] [address] [place] [address] [id number] DANIEL LEO Self - patient is the insured [employer] CLAIMS [address] [place] [address] [id number] DANIEL LEO Self - patient is the insured Medical (General) History Medical History History ICD Code colonoscopy 09/20/14 colon polyp enviromental allergies hypertension asthma Surgical History Surgery Date(Month/Year) cyst removal
== END 2025-01-17 14:46 | disposition home or self-care (01) ==
LOC: HO.HUSH 14:37
PROVIDERS: PCP Internal Medicine; Visit Provider Urology
DX: R82.992 Hyperoxaluria (principal); N20.0 Calculus of kidney
CPT/HCPCS: 99213